=== PATIENT | female | born 1970 | race Caucasian/White ===

== ENCOUNTER 2023-11-27 19:04 | Emergency (ER) | payer OTHER, SELFPAY ==
[2023-11-27 19:45] VITALS: BP 176/77; PULSE 89; RESP 18; TEMP 36.8; O2SAT 98; BMI 29.3
--- NOTE | 2023-11-27 19:46 | ED.GENADULT ---
HPI - General Adult General Chief complaint: Urogenital-Female Stated complaint: UTI Time Seen by Provider: 11/27/23 20:43 Source: patient Mode of arrival: ambulatory Limitations: no limitations History of Present Illness ED Provider: kenia MARIE narrative: Patient is a 53-year-old female presenting to the ED with complaint of urinary urgency, dysuria and suprapubic pain for the past 2 days. States feels similar to prior UTIs. Denies fevers. Reports nausea, denies vomiting. MD complaint: dysuria Onset (ago): day(s) Location: abdomen Radiation: non-radiation Severity: mild Quality: burning Associated symptoms: nausea/vomiting Treatments prior to arrival: none Related Data Previous Rx's ?Medication ?Instructions ?Recorded cefuroxime axetil 250 mg tablet 250 mg PO BID #14 tabs 11/27/23 phenazopyridine 100 mg tablet 100 mg PO TID PRN pain 6 doses #6 11/27/23 tabs Allergies Allergy/AdvReac Type Severity Reaction Status Date / Time No Known Allergies Allergy Verified 11/27/23 19:48 Review of Systems Review of Systems: as per hpi Yes all other systems are reviewed and are negative Constitutional: Constitutional: Reports as per HPI [facility] Social History Social History Advance Directives: No Advance Directives Information Provided: No Do you have a plan to hurt others: No Plan Physical Exam ED Vital Signs: Vital Signs - 24 hr 11/27/23 19:45 Temperature 98.2 F Pulse Rate 89 Respiratory Rate 18 Blood Pressure 176/77 H Pulse Oximetry 98 Oxygen Delivery Method Room Air BMI result Body Mass Index 29.3 Vital signs have been reviewed and appear to be correct. Blood pressure elevated. Heart rate normal. Respiratory rate normal. Temperature normal. Oxygen saturation normal. Const General: cooperative, healthy appearing and no acute distress Orientation/consciousness: oriented to person, oriented to place, oriented to time and patient oriented x3 Limitations: no limitations HENMT Head: Yes normocephalic and Yes atraumatic Ears: external ears normal General nose exam: Normal external nose present Face and sinus: Yes face symmetric Mouth: oropharynx normal and moist mucous membranes Throat: Yes uvula midline Eyes Pupils: Equal, round and reactive pupils present Neck Neck: Yes normal visual inspection and Yes supple Resp Effort & Inspection: normal respiratory effort and able to speak in complete sentences Auscultation: clear to auscultation bilaterally Cardio Rate: regular rate Rhythm: regular rhythm Heart sounds: S1 normal heart sound present and S2 normal heart sound present GI Palpation (GI): Soft to palpation and nontender Auscultation: normoactive bowel sounds General: Yes no CVA tenderness Back/Spine/Pelvis Back: no CVA tenderness Skin General skin exam: elasticity normal and turgor normal Neuro General: oriented to person, oriented to place, oriented to time, patient oriented x3, moves all extremities, no focal motor deficits and CN's II-XI intact bilaterally Cranial nerves: Yes Equal, round and reactive pupils present Cognition (Neuro): normal cognition Extrem General: Yes full ROM, Yes no pedal edema and Yes no calf tenderness Psych Mental Status: mental status grossly normal Affect: normal affect Thought process: Normal thought process present Medical Decision Making Medical Decision Making [facility] Narrative: Patient is a 53-year-old female presenting to the ED with complaint of urinary urgency, dysuria and suprapubic pain for the past 2 days. On exam patient is awake, A+Ox3, BP elevated likely due to discomfort, VS otherwise WNL, afebrile, normal neurological exam without focal deficits, physical exam findings as above. Given reported symptoms and physical exam findings, initial differential includes UTI, cystitis. Unlikely pyelonephritis. Labs notable for no leukocytosis, no NAYANA. Urinalysis notable for 3+ leukocytes, 2+ blood, >50 WBCs. Will treat for UTI with cefuroxime and Pyridium. Instructed patient to follow-up with PCP. Return precautions discussed. Patient verbalized understanding of and agreement with plan. Differential Diagnosis Differential Diagnoses: The differential diagnosis associated with the presentation includes As per MDM. Lab Data [facility] Lab Attestation statement: I reviewed the patient's lab results. As per [facility]. 11/27/23 20:05 11/27/23 20:05 Labs: Lab Results 11/27/23 Range/Units 20:05 WBC 5.2 (4.8-10.8) X10*3/uL RBC 3.99 L (4.20-5.50) X10*6/uL Hgb 13.4 (12.0-16.0) g/dl Hct 39.2 (37.0-47.0) % MCV 98.2 H (80.0-98.0) fL MCH 33.6 H (27.0-33.0) pg MCHC 34.2 (31.0-35.0) g/dl RDW 15.0 (11.0-16.0) % Plt Count 240 (160-400) X10*3/uL MPV 11.2 (9.4-12.3) fL Immature Gran % (Auto) 0.2 (0.0-0.4) % Neut % (Auto) 80.2 H (45-73) % Lymph % (Auto) 12.2 L (20-40) % Hawkins % (Auto) 4.5 (2-11) % Eos % (Auto) 2.5 (0-4) % Baso % (Auto) 0.4 (0-2) % Lymph # (Auto) 0.6 L (1.2-4.9) X10*3/uL Hawkins # (Auto) 0.2 (0.1-1.2) X10*3/uL Eos # (Auto) 0.1 (0.0-0.4) X10*3/uL Baso # (Auto) 0.0 (0.0-0.2) X10*3/uL Abs Immat Gran (auto) 0.01 (0.00-0.03) X10*3/uL Absolute Neuts (auto) 4.1 (2.0-8.3) x10*3/uL Absolute Nucleated RBC 0.000 (0.0-0.012) X10*3/uL Nucleated RBC % (auto) 0.0 (0.0-0.2) /100WBC Sodium 142 (135-145) mmol/L Potassium 4.2 (3.3-5.1) mmol/L Chloride 109 H (96-108) mmol/L Carbon Dioxide 22 (22-29) mmol/L Anion Gap 15 (12-20) BUN 12 (9-16) mg/dL Creatinine 0.65 (0.5-1.4) mg/dL Estim Creat Clear Calc 91.2 Estimated GFR > 60 Random Glucose 182 H (60-115) mg/dL Calcium 9.4 (8.4-10.2) mg/dL Total Bilirubin 0.8 (0.0-1.0) mg/dL AST 38 H (5-31) U/L ALT 42 H (0-31) U/L Alkaline Phosphatase 78 (39-117) U/L Total Protein 6.9 (6.5-8.0) g/dL Albumin 3.9 (3.5-5.0) g/dL Urine Color Yellow Urine Appearance Cloudy Urine pH 6.5 (5.0-9.0) Ur Specific [place] 1.020 (1.005-1.025) Urine Protein Negative (Neg-Trace) mg/dL Urine Glucose (UA) Negative (Negative) mg/dL Urine Ketones Negative (Negative) mg/dL Urine Blood Moderate (2+) H (Negative) Urine Nitrite Negative (Negative) Ur Leukocyte Esterase Large (3+) H (Negative) Urine RBC >20 H (0-2) /HPF Urine WBC >50 H (0-5) /HPF Ur Squamous Epith Cells 0-2 (0-2) /HPF Urine Bacteria Trace (None Seen) Hyaline Casts 0-2 (0-2) /LPF External Record Review External record reviewed: Inpatient record, Office record and Outpatient record Prescription Management I considered prescription management with: Antibiotic Discharge Plan Discharge Clinical Impression: Urinary tract infection Patient Disposition: Home, Self-Care Instructions: Urinary Tract Infection in Women (DC) Additional Instructions: You have been evaluated in the emergency department today for your urinary symptoms. Your evaluation, including urinalysis, suggests that your symptoms are due to urinary tract infection. Please take your prescribed antibiotics for the full course of medication as directed. Please follow-up with your primary care provider within 2 days. Return to the emergency department if you experience fevers 100.4? F or greater, worsening or uncontrolled pain, vomiting, flank pain, or for any other concerning symptoms. Prescriptions: New cefuroxime axetil 250 mg tablet 250 mg PO BID Qty: 14 0RF phenazopyridine 100 mg tablet 100 mg PO TID PRN (Reason: pain) Qty: 6 0RF Print Language: Puerto Rican
[2023-11-27 20:09] LABS: MANUAL DIFF FLAG NO
--- OUTSIDE RECORDS SUMMARY | 2023-11-27 20:12 | XMS_ITS | Continuity of Care Document ---
Author Organization [facility] Mil[facility] lt Address [address] [place] [address]- Care Team Providers Care Mine Utility Operator Name Role Phone Dwight De Oliveira MD Primary Care Physician Encounter [facility] [place] Date(s): 09/02/20 - 10/02/20 [facility] Adult [address] [place] [address]- Allergies, Adverse Reactions, Alerts Substance Reaction Severity Status NKA Active Immunizations Given and Recorded Vaccine Date Status Refusal Reason Influenza Virus Vaccine (oldterm) 1 01/31/17 Given tetanus/diphtheria/pertussis, acel(Tdap) 09/20/16 Given tetanus-diphtheria toxoids (Td) 2 01/20/05 Given Not Given Vaccine Date Status Refusal Reason Influenza Virus Vaccine (oldterm) 06/22/19 Not Giv en Parent Or Guardian Refuses pneumococcal 23-valent vaccine 12/30/19 Not Given Patient Refuses 1Admin Note: declined 2Admin Note: declined Medications amLODIPine 5 mg oral tablet See Instructions, TAKE 1 TABLET BY MOUTH EVERY DAY, # 30 tablet, Refills 5, Tot. Refills 5, Soft Stop, 07/19/20 9:15:00 EDT, Instructions Replace Required Details, Route to Pharmacy Electronically, [facility]/pharmacy #[id number], 157, cm, 05/03/20 6:52:00 EST, He... Start Date: 07/19/20 Status: Ordered atorvastatin 40 mg oral tablet 1 tablet, By Mouth, Daily, # 30 tablet, 5 Refills, Maintenance, 08/02/20 15:10:00 EDT, [facility]/pharmacy#[id number], 157, cm, 05/03/20 6:52:00 EST, Height, 80.1, kg, 01/22/20 14:40:00 EDT, Dry Weight Start Date: 08/02/20 Status: Ordered fenofibrate 54 mg oral tablet 1 tablet, By Mouth, Daily, # 30 tablet, 5 Refills, Maintenance, 08/02/20 15:13:00 EDT, [facility]/pharmacy#[id number], 157, cm, 05/03/20 6:52:00 EST, Height, 80.1, kg, 01/22/20 14:40:00 EDT, Dry Weight Start Date: 08/02/20 Status: Ordered Flagyl 500 mg oral tablet 1 tablet = 500 mg, By Mouth, 3 times a day, # 30 tablet, 0 Refills, Maintenance, 01/26/20 8:16:00 EDT, [facility], 157, cm, 01/26/20 8:00:00 EDT, Height, 80.1, kg, 01/22/20 14:40:00 EDT, Dry Weight Start Date: 01/26/20 Stop Date: 02/05/20 Status: Ordered Humira See Instructions, 40 mg Subcutaneous Infusion Once every 15 days, 0 Refills, Maintenance, 06/20/12 10:48:17 EST Start Date: 06/20/12 Status: Ordered lisinopril 20 mg oral tablet 1, tablet, By Mouth, Daily, # 30 tablet, Refills 5, Tot. Refills 5, Maintenance, 08/02/20 15:13:00 EDT, Route to Pharmacy Electronically, [facility]/pharmacy #[id number], 157, cm, 05/03/20 6:52:00 EST, Height, 80.1, kg, 01/22/20 14:40:00 EDT, Dry Weight Start Date: 08/02/20 Status: Ordered mercaptopurine 50 mg oral tablet 2 tablet = 100 mg, By Mouth, Daily in AM, 0 Refills, Maintenance, 01/06/20 11:07:00 EDT Start Date: 01/06/20 Status: Ordered neomycin 500 mg oral tablet See Instructions, take 2 tabs with 2 tabs Metronidazole at 9:00PM and again at 11:00PM day before procedure., # 4 each, 0 Refills, Maintenance, 01/08/20 14:41:00 EDT, [facility]/pharmacy #[id number], 158, cm, 12/31/19 4:02:00 EDT, Height, 85, kg, 12/29/19 16:02:0... Start Date: 01/08/20 Status: Ordered pregabalin 150 mg oral capsule 1 capsule = 150 mg, By Mouth, 2 times a day, for 30 days, # 60 capsule, 5 Refills, Hard Stop 11/30/20 14:28:00 EDT, 06/03/20 14:28:00 EST, Capsule, [facility]/pharmacy #[id number], generic brand only, 157, cm, 05/03/20 6:52:00 EST, Height, 80.1, kg, 01/22/20 14:40... Start Date: 06/03/20 Stop Date: 11/30/20 Status: Ordered pregabalin 150 mg oral capsule 1 capsule = 150 mg, By Mouth, 2 times a day, # 60 capsule, 5 Refills, Maintenance, 06/03/20 16:22:00 EST, Capsule, [id number], generic brand only, 157, cm, 05/03/20 6:52:00 EST, Height, 80.1,kg, 01/22/20 14:40:00 EDT, Dry Weight Start Date: 06/03/20 Stop Date: 11/30/20 Status: Ordered PriLOSEC OTC 20 mg oral delayed release tablet 1 tablet = 20 mg, By Mouth, 2 times a day, # 120 tablet, 0 Refills, Maintenance, 12/29/19 5:29:00 EDT, EC Tablet Start Date: 12/29/19 Status: Ordered ProAir HFA 90 mcg/inh inhalation aerosol with adapter 1, puffs, Inhalation, Every 6 hours, PRN, # 8.5 Gm, Refills 0, Tot. Refills 0, Maintenance, 09/01/20 17:39:00 EDT, Aerosol, Route to Pharmacy Electronically, [id number], [id number], 157, cm, 09/01/20 17:23:00 EDT, Hei... Start Date: 09/01/20 Stop Date: 09/08/20 Status: Ordered Problem List Condition Effective Dates Status Health Status Inform ant Abnormal LFTs(Confirmed) 06/23/09 Active BMI 33.0-33.9,adult(Confirmed) Active Papanicolaou test, as part o f routine gynecological examination(Confirmed) Active Cancer of anal canal(Confirmed) Active CC (Crohn's colitis)(Confirmed) Active Chest Pain(Confirmed) 06/23/09 Active Glucose intolerance(Confirmed) Active Diverticulosis(Confirmed) 1 Active Dyspareunia(Confirmed) Active Dysphagia(Confirmed) Active ESR raised(Confirmed) Active Family history of BRCA2 gene positive(Confirmed) Active Fibromyalgia syndrome(Confirmed) 10/17/12 Active Hip pain(Confirmed) Active History of colonoscopy(Confirmed) 2, 3 Active Hypercholesterolemia(Confirmed) 06/23/09 Active Hypertension(Confirmed) 04/18/10 Active RLS (restless legs syndrome)(Confirmed) Active Menopausal vaginal dryness(Confirmed) Active 1colo 2014; repeat 2020 46942; repeat 2017 Social History Social History Type Response Smoking Status Never smoker entered on: 09/20/16 Sex
--- OUTSIDE RECORDS SUMMARY | 2023-11-27 20:12 | XMS_ITS | Continuity of Care Document ---
Author Organization [facility] Address [address] [place] [id number]- Care Team Providers Care Side Seam Tender Name Role Phone Yennifer OSORIO, Dwight Dunlap Primary Care Physician Encounter [facility] [place] Date(s): 10/23/19 - 11/22/19 [facility] [address] [address]- [facility] Attending Physician: Calderon Rodrigez Admitting Physician: Calderon Rodrigez Referring Physician: Calderon Rodrigez Allergies, Adverse Reactions, Alerts Substance Reaction Severity Status NKA Active Immunizations Given and Recorded Vaccine Date Status Refusal Reason Influenza Virus Vaccine (oldterm) 1 01/31/17 Given tetanus/diphtheria/pertussis, acel(Tdap) 09/20/16 Given tetanus-diphtheria toxoids (Td) 2 01/20/05 Given Not Given Vaccine Date Status Refusal Reason Influenza Virus Vaccine (oldterm) 06/22/19 Not Giv en Parent Or Guardian Refuses 1Admin Note: declined 2Admin Note: declined Medications amLODIPine 5 mg oral tablet See Instructions, TAKE 1 TABLET BY MOUTH EVERY DAY, # 30 tablet, Refills 5, Tot. Refills 5, Soft Stop, 07/13/19 13:27:00 EDT, Instructions Replace Required Details, Route to Pharmacy Electronically, [facility]/pharmacy #[id number], [id number], 06/22/19 9:24:00 EST, H... Start Date: 07/13/19 Status: Ordered atorvastatin 40 mg oral tablet 1 tablet, By Mouth, Daily, # 30 tablet, 5 Refills, Maintenance, 07/23/19 14:20:00 EDT, [facility]ORE [id number], 158, mikayla, 06/22/19 9:24:00 EST, Height, 81.6, kg, 09/24/17 8:57:00 EDT, Dry Weight Start Date: 07/23/19 Status: Ordered atropine-diphenoxylate 0.025 mg-2.5 mg oral tablet 2, tablet, By Mouth, 4 times a day, Refills 0, Maintenance, 05/01/18 8:50:40 EST Start Date: 05/01/18 Status: Ordered azathioprine 50 mg oral tablet 2 tablet = 100 mg, By Mouth, 2 times a day, 10/23/06 11:55:47 Start Date: 10/23/06 Status: Ordered Claritin 10 mg oral tablet 10 mg, 1, tablet, By Mouth, Daily, # 30 tablet, Refills 1, Tot. Refills 1, Maintenance, 11/04/19 11:42:00 EDT, Route to Pharmacy Electronically, [facility]/pharmacy #[id number], 158, cm, 11/04/19 11:05:00 EDT, Height Start Date: 11/04/19 Status: Ordered fenofibrate 54 mg oral tablet 1 tablet, By Mouth, Daily, # 30 tablet, 5 Refills, Maintenance, 07/23/19 14:20:00 EDT, [facility] [id number], 158, cm, 06/22/19 9:24:00 EST, Height, 81.6, kg, 09/24/17 8:57:00 EDT, Dry Weight Start Date: 07/23/19 Status: Ordered fluticasone 27.5 mcg/inh nasal spray 1 sprays, Nares, Both, Daily, PRN for allergy symptoms, # 10 Gm, 1 Refills, Maintenance, 11/04/19 11:41:00 EDT, [place], [facility]/pharmacy #[id number], 1 sprays Nares, Both Daily,PRN:for allergy symptoms, 158, cm, 11/04/19 11:05:00 EDT, Height Start Date: 11/04/19 Status: Ordered Humira See Instructions, 40 mg Subcutaneous Infusion Once every 15 days, 0 Refills, Maintenance, 06/20/12 10:48:17 Start Date: 06/20/12 Status: Ordered lisinopril 20 mg oral tablet 1, tablet, By Mouth, Daily, # 30 tablet, Refills 5, Tot. Refills 0, Maintenance, 07/23/19 14:20:00 EDT, Route to Pharmacy Electronically, [id number], 158, cm, 06/22/19 9:24:00 EST, Height, 81.6,kg, 09/24/17 8:57:00 EDT, Dry Weight Start Date: 07/23/19 Status: Ordered meclizine 25 mg oral tablet 1 tablet = 25 mg, By Mouth, 3 times a day, PRN for dizziness, # 30 tablet, 0 Refills, Maintenance, 11/10/19 10:36:00 EDT, Tablet, [facility]/pharmacy #[id number], 158, cm, 11/10/19 9:31:00 EDT, Height Start Date: 11/10/19 Status: Ordered pregabalin 150 mg oral capsule 1 capsule = 150 mg, By Mouth, 2 times a day, # 180 capsule, 3 Refills, Maintenance, 10/16/19 16:18:00 EDT, Capsule, [facility]/pharmacy #[id number], generic brand only, 158, cm, 06/22/19 9:24:00 EST, Height, Dry Weight Start Date: 10/16/19 Status: Ordered Problem List Condition Effective Dates [...] vaginal dryness(Confirmed) Active 1colo 2014; repeat 2020 86732; repeat 2017 Social History Social History Type Response Smoking Status Never smoker entered on: 09/20/16 Sex
--- OUTSIDE RECORDS SUMMARY | 2023-11-27 20:12 | XMS_ITS | Continuity of Care Document ---
Author Organization [facility] Address [address] [place] [address]- Care Team Providers Care Gas Operations Superintendent Name Role Phone Dwight De Oliveira MD Primary Care Physician [phone] Encounter [facility] [place] Date(s): 01/29/23 - 02/28/23 [facility] Adult [address] [place] [address]- Allergies, Adverse Reactions, Alerts No Known Allergies Immunizations Given and Recorded Vaccine Date Status Refusal Reason SARS-CoV-2 (COVID-19) Ad26 vaccine 1 10/27/20 Give n Influenza Virus Vaccine (oldterm) 2 01/31/17 Given tetanus/diphtheria/pertussis, acel(Tdap) 09/20/16 Given tetanus-diphtheria toxoids (Td) 3 01/20/05 Given 1Result Comment: [id number] 2Admin Note: declined 3Admin Note: declined Medications atorvastatin 40 mg oral tablet 1 tablet, By Mouth, Daily, # 90 tablet, 1 Refills, Maintenance, 10/24/22 10:14:00 EDT, [facility][id number], 157, cm, 10/17/22 7:48:00 EDT, Height Start Date: 10/24/22 Status: Ordered Clobetasol (Eqv-Temovate) 0.05% topical cream See Instructions, APPLY TO AFFECTED AREA TWICE A DAY, # 60 Gm, 0 Refills, Maintenance, 06/22/22 11:25:00 EST, [facility], 30, APPLY TO AFFECTED AREA TWICE A DAY, 157, cm, 02/15/22 10:32:00 EDT, Height Start Date: 06/22/22 Status: Ordered fenofibrate 54 mg oral tablet 1 tablet, By Mouth, Daily, # 90 tablet, 1 Refills, Maintenance, 10/24/22 10:14:00 EDT, [facility] #[id number], 157, cm, 10/17/22 7:48:00 EDT, Height Start Date: 10/24/22 Status: Ordered lisinopril 20 mg oral tablet 1, tablet, By Mouth, Daily, # 90 tablet, Refills 1, Tot. Refills 1, Maintenance, 02/13/23 8:15:00 EDT, Route to Pharmacy Electronically, [facility] #[id number], 157, cm, 10/17/22 7:48:00 EDT, Height Start Date: 02/13/23 Status: Ordered mercaptopurine 50 mg oral tablet 2 tablet = 100 mg, By Mouth, Daily in AM, 0 Refills, Maintenance, 01/06/20 11:07:00 EDT Start Date: 01/06/20 Status: Ordered pregabalin 150 mg oral capsule 1 capsule = 150 mg, By Mouth, 2 times a day, # 60 capsule, 5 Refills, Maintenance, 12/31/22 10:09:00 EDT, Capsule, [facility] #[id number], generic brand only, 157, cm, 10/17/22 7:48:00 EDT, Height Start Date: 12/31/22 Stop Date: 06/29/23 Status: Ordered PriLOSEC OTC 20 mg oral delayed release tablet 1 tablet = 20 mg, By Mouth, 2 times a day, # 120 tablet, 0 Refills, Maintenance, 12/29/19 5:29:00 EDT, EC Tablet Start Date: 12/29/19 Status: Ordered Toprol XL 50 mg oral tablet, extended release 50 mg, 1, tablet, By Mouth, Daily, # 90 tablet, Refills 3, Tot. Refills 3, Maintenance, 12/06/21 9:21:00 EDT, Route to Pharmacy Electronically, [facility]/pharmacy #[id number], Partial fill upon patient request if the prescription is for a schedule II opioid drug.... Start Date: 12/06/21 Status: Ordered Problem List Condition Confirmation Course Effective Dates Status Health Status Informant Abnormal LFTs Confirmed 06/23/09 Active BMI 33.0-33.9,adult Confirmed Active Papanicolaou test, as part of routine gynecological examination Confirmed Active CC (Crohn's colitis) Confirmed Active Chest Pain Confirmed 06/23/09 Active Glucose intolerance Confirmed Active Diverticulosis 1 Confirmed Active Dyspareunia Confirmed Active Dysphagia Confirmed Active Eczematous dermatitis Confirmed Active ESR raised Confirmed Active Family history of BRCA2 gene positive Confirmed Active Fibromyalgia syndrome Confirmed 10/17/12 Active Hand eczema Confirmed Active Hip pain Confirmed Active History of colonoscopy 2, 3 Confirmed Active History of anal cancer Confirmed Active Hypercholesterolemia Confirmed 06/23/09 Active Hypertension Confirmed 04/18/10 Active Macrocytic anemia Confirmed Active Obese class I Confirmed Active Palpitations Confirmed Active RLS (restless legs syndrome) Confirmed Active Menopausal vaginal dryness Confirmed Active 1colo 2014; repeat 202015; repeat 2017 Social History Social History Type Response Smoking Status Never smoker entered on: 09/20/16 Sex Patient Care team information Care Team Personnel Name: Anderson Best RN Position: [facility] RN Member Role: Primary Care Nurse Name: Dwight De Oliveira MD Position: [facility] Physician - Primary Care Member Role: PCP Address: Address: [address] [place] [phone]- Name: Anette Boyce RN Position: [facility] AMB Nurse Member Role: Primary Care Nurse Name: Afia Hughes RN Position: [facility] RN Member Role: Primary Care Nurse Name: Tomer Merino RN Position: [facility] RN Member Role: Primary Care Nurse Care Team Related Persons Name: ROSE CRENSHAW Address: [address] [address]
--- OUTSIDE RECORDS SUMMARY | 2023-11-27 20:12 | XMS_ITS | Continuity of Care Document ---
Author Organization [facility] Mil[facility] Address [address] [place] [address]- Care Team Providers Care Gravel Weigher Name Role Phone Dwight De Oliveira MD Primary Care Physician [phone] Encounter [facility] [place] Date(s): 08/29/20 - 09/28/20 [facility] Adult [address] [place] [address]- Allergies, Adverse Reactions, Alerts Substance Reaction Severity [...] Replace Required Details, Route to Pharmacy Electronically, [facility]/pharmacy #[id number], 157, cm, 05/03/20 6:52:00 EST, He... Start Date: 07/19/20 Status: Ordered atorvastatin 40 mg oral tablet 1 tablet, By Mouth, Daily, # 30 tablet, 5 Refills, Maintenance, 08/02/20 15:10:00 EDT, [facility]/pharmacy#[id number], 157, cm, 05/03/20 6:52:00 EST, Height, 80.1, kg, 01/22/20 14:40:00 EDT, Dry Weight Start Date: 08/02/20 Status: Ordered fenofibrate 54 mg oral tablet 1 tablet, By Mouth, Daily, # 30 tablet, 5 Refills, Maintenance, 08/02/20 15:13:00 EDT, [facility]/pharmacy#[id number], 157, cm, 05/03/20 6:52:00 EST, Height, 80.1, kg, 01/22/20 14:40:00 EDT, Dry Weight Start Date: 08/02/20 Status: Ordered Flagyl 500 mg oral tablet 1 tablet = 500 mg, By Mouth, 3 times a day, # 30 tablet, 0 Refills, Maintenance, 01/26/20 8:16:00 EDT, [facility], 157, cm, 01/26/20 8:00:00 [...] 08/02/20 15:13:00 EDT, Route to Pharmacy Electronically, [facility]/pharmacy #[id number], 157, cm, 05/03/20 6:52:00 EST, [...] each, 0 Refills, Maintenance, 01/08/20 14:41:00 EDT, [facility]/pharmacy #[id number], 158, cm, 12/31/19 4:02:00 EDT, Height, 85, kg, 12/29/19 16:02:0... Start Date: 01/08/20 Status: Ordered pregabalin 150 mg oral capsule 1 capsule = 150 mg, By Mouth, 2 times a day, for 30 days, # 60 capsule, 5 Refills, Hard Stop 11/30/20 14:28:00 EDT, 06/03/20 14:28:00 EST, Capsule, [facility]/pharmacy #[id number], generic brand only, 157, cm, [...] 17:39:00 EDT, Aerosol, Route to Pharmacy Electronically, [id number], [id number], 157, cm, 09/01/20 17:23:00 EDT, [...] vaginal dryness(Confirmed) Active 1colo 2014; repeat 2020 95714; repeat 2017 Social History Social History Type Response Smoking Status Never smoker entered on: 09/20/16 Sex
--- OUTSIDE RECORDS SUMMARY | 2023-11-27 20:12 | XMS_ITS | Continuity of Care Document ---
Author Organization [facility] Mil[facility] lt Address [address] [place] [address]- Care Team Providers Care Package Clerk Name Role Phone Dwight De Oliveira MD Primary Care Physician [place] [facility] [place] 10/01/20 [facility] Adult [address] [place] [address]- Allergies, Adverse Reactions, Alerts Substance Reaction Severity [...] Replace Required Details, Route to Pharmacy Electronically, [facility]/pharmacy #[id number], 157, cm, 05/03/20 6:52:00 EST, He... Start Date: 07/19/20 Status: Ordered atorvastatin 40 mg oral tablet 1 tablet, By Mouth, Daily, # 30 tablet, 5 Refills, Maintenance, 08/02/20 15:10:00 EDT, [facility]/pharmacy#[id number], 157, cm, 05/03/20 6:52:00 EST, Height, 80.1, kg, 01/22/20 14:40:00 EDT, Dry Weight Start Date: 08/02/20 Status: Ordered fenofibrate 54 mg oral tablet 1 tablet, By Mouth, Daily, # 30 tablet, 5 Refills, Maintenance, 08/02/20 15:13:00 EDT, [facility]/pharmacy#[id number], 157, cm, 05/03/20 6:52:00 EST, Height, 80.1, kg, 01/22/20 14:40:00 EDT, Dry Weight Start Date: 08/02/20 Status: Ordered Flagyl 500 mg oral tablet 1 tablet = 500 mg, By Mouth, 3 times a day, # 30 tablet, 0 Refills, Maintenance, 01/26/20 8:16:00 EDT, [facility], 157, cm, 01/26/20 8:00:00 [...] 08/02/20 15:13:00 EDT, Route to Pharmacy Electronically, [facility]/pharmacy #[id number], 157, cm, 05/03/20 6:52:00 EST, [...] each, 0 Refills, Maintenance, 01/08/20 14:41:00 EDT, [facility]/pharmacy #[id number], 158, cm, 12/31/19 4:02:00 EDT, Height, 85, kg, 12/29/19 16:02:0... Start Date: 01/08/20 Status: Ordered pregabalin 150 mg oral capsule 1 capsule = 150 mg, By Mouth, 2 times a day, for 30 days, # 60 capsule, 5 Refills, Hard Stop 11/30/20 14:28:00 EDT, 06/03/20 14:28:00 EST, Capsule, [facility]/pharmacy #[id number], generic brand only, 157, cm, [...] 17:39:00 EDT, Aerosol, Route to Pharmacy Electronically, [id number], [id number], 157, cm, 09/01/20 17:23:00 EDT, [...] vaginal dryness(Confirmed) Active 1colo 2014; repeat 2020 77988; repeat 2017 Social History Social History Type Response Smoking Status Never smoker entered on: 09/20/16 Sex
--- OUTSIDE RECORDS SUMMARY | 2023-11-27 20:12 | XMS_ITS | Continuity of Care Document ---
Author Organization [facility] Address [address] [place] [address]- Care Team Providers Care Beer Runner Name Role Phone Dwight De Oliveira MD Primary Care Physician [phone] Encounter [facility] [place] ACCT R [id number] Date(s): 01/14/20 - 02/13/20 [facility] [address] [place] [address]- [facility] Attending Physician: Calderon Rodrigez Admitting Physician: AdmtrCalderon Referring Physician: AdmtrCalderon Allergies, Adverse Reactions, Alerts Substance Reaction Severity [...] Refills 5, Tot. Refills 5, Soft Stop, 01/12/20 8:00:00 EDT, Instructions Replace Required Details, Route to Pharmacy Electronically, [facility]/pharmacy #[id number], 158, cm, 12/31/19 4:02:00 EDT, Erma. Start Date: 01/12/20 Status: Ordered atorvastatin 40 mg oral tablet 1 tablet, By Mouth, Daily, # 30 tablet, 5 Refills, Maintenance, 02/05/20 11:40:00 EDT, [facility]/pharmacy#[id number], 157, cm, 01/26/20 8:00:00 EDT, Height, 80.1, kg, 01/22/20 14:40:00 EDT, Dry Weight Start Date: 02/05/20 Status: Ordered fenofibrate 54 mg oral tablet 1 tablet, By Mouth, Daily, # 30 tablet, 5 Refills, Maintenance, 02/05/20 11:30:00 EDT, [facility]/pharmacy#[id number], 157, cm, 01/26/20 8:00:00 EDT, Height, 80.1, kg, 01/22/20 14:40:00 EDT, Dry Weight Start Date: 02/05/20 Status: Ordered Flagyl 500 mg oral tablet 1 tablet = 500 mg, By Mouth, 3 times a day, # 30 tablet, 0 Refills, Maintenance, 01/26/20 8:16:00 EDT, [facility], 157, cm, 01/26/20 8:00:00 EDT, Height, 80.1, kg, 01/22/20 14:40:00 EDT, Dry Weight Start Date: 01/26/20 Stop Date: 02/05/20 Status: Ordered Humira See Instructions, 40 mg Subcutaneous Infusion Once every 15 days, 0 Refills, Maintenance, 06/20/12 10:48:17 EST Start Date: 06/20/12 Status: Ordered lisinopril 20 mg oral tablet 1, tablet, By Mouth, Daily, # 30 tablet, Refills 5, Tot. Refills 5, Maintenance, 02/05/20 11:30:00 EDT, Route to Pharmacy Electronically, [facility]/pharmacy #[id number], 157, cm, 01/26/20 8:00:00 EDT, Height, 80.1, kg, 01/22/20 14:40:00 EDT, Dry Weight Start Date: 02/05/20 Status: Ordered Lomotil 0.025 mg-2.5 mg oral tablet 2, tablet, By Mouth, 3 times a day before meals and bedtime, PRN, for 30 days, # 240 tablet, Refills 0, Tot. Refills 0, Acute, as needed for loose stool, 02/25/20 8:13:00 EDT, 01/26/20 8:13:00 EDT, Route to Pharmacy Electronically, [facility] Start Date: 01/26/20 Stop Date: 02/25/20 Status: Ordered loperamide 2 mg oral capsule 4 mg, 2, capsule, By Mouth, 3 times a day before meals and bedtime, PRN, for 30 days, # 240 capsule, Refills 0, Tot. Refills 0, Acute 02/25/20 8:13:00 EDT, Loose Stool, 01/26/20 8:13:00 EDT, Route toPharmacy Electronically, [facility],... Start Date: 01/26/20 Stop Date: 02/25/20 Status: Ordered mercaptopurine 50 mg oral tablet 2 tablet = 100 mg, By Mouth, Daily in AM, 0 Refills, Maintenance, 01/06/20 11:07:00 EDT Start Date: 01/06/20 Status: Ordered neomycin 500 mg oral tablet See Instructions, take 2 tabs with 2 tabs Metronidazole at 9:00PM and again at 11:00PM day before procedure., # 4 each, 0 Refills, Maintenance, 01/08/20 14:41:00 EDT, [facility]/pharmacy #[id number], 158, cm, 12/31/19 4:02:00 EDT, Height, 85, kg, 12/29/19 16:02:0... Start Date: 01/08/20 Status: Ordered pregabalin 150 mg oral capsule 1 capsule = 150 mg, By Mouth, 2 times a day, # 180 capsule, 3 Refills, Maintenance, 10/16/19 16:18:00 EDT, Capsule, [id number], generic brand [facility], 158, cm, 06/22/19 9:24:00 EST, Height, Dry Weight Start Date: 10/16/19 Status: Ordered PriLOSEC OTC 20 mg oral delayed release tablet 1 tablet = 20 mg, By Mouth, 2 times a day, # 120 tablet, 0 Refills, Maintenance, 12/29/19 5:29:00 EDT, EC Tablet Start Date: 12/29/19 Status: Ordered Problem List Condition Effective Dates [...] vaginal dryness(Confirmed) Active 1colo 2014; repeat 2020 23192; repeat 2017 Social History Social History Type Response Smoking Status Never smoker entered on: 09/20/16 Sex
--- OUTSIDE RECORDS SUMMARY | 2023-11-27 20:12 | XMS_ITS | Continuity of Care Document ---
Author Organization [facility] Mil[facility] lt Address [address] [place] [address]- Care Team Providers Care Fire Sprinkler Installer Name Role Phone Dwight De Oliveira MD Primary Care Physician Encounter [facility] [place] Date(s): 06/03/20 - 07/03/20 [facility] Adult [address] [place] [address]- Allergies, Adverse Reactions, Alerts Substance Reaction Severity [...] Replace Required Details, Route to Pharmacy Electronically, [facility]/pharmacy #[id number], 158, cm, 12/31/19 4:02:00 EDT, He... Start Date: 01/12/20 Status: Ordered atorvastatin 40 mg oral tablet 1 tablet, By Mouth, Daily, # 30 tablet, 5 Refills, Maintenance, 02/05/20 11:40:00 EDT, [facility]/pharmacy#[id number], 157, cm, 01/26/20 8:00:00 EDT, Height, 80.1, kg, 01/22/20 14:40:00 EDT, Dry Weight Start Date: 02/05/20 Status: Ordered fenofibrate 54 mg oral tablet 1 tablet, By Mouth, Daily, # 30 tablet, 5 Refills, Maintenance, 02/05/20 11:30:00 EDT, [facility]/pharmacy#[id number], 157, cm, 01/26/20 8:00:00 EDT, Height, 80.1, kg, 01/22/20 14:40:00 EDT, Dry Weight Start Date: 02/05/20 Status: Ordered Flagyl 500 mg oral tablet 1 tablet = 500 mg, By Mouth, 3 times a day, # 30 tablet, 0 Refills, Maintenance, 01/26/20 8:16:00 EDT, [facility], 157, cm, 01/26/20 8:00:00 [...] 02/05/20 11:30:00 EDT, Route to Pharmacy Electronically, [facility]/pharmacy #[id number], 157, cm, 01/26/20 8:00:00 EDT, Height, 80.1, kg, 01/22/20 14:40:00 EDT, Dry Weight Start Date: 02/05/20 Status: Ordered mercaptopurine 50 mg oral tablet 2 tablet = 100 mg, By Mouth, Daily in AM, 0 Refills, Maintenance, 01/06/20 11:07:00 EDT Start Date: 01/06/20 Status: Ordered neomycin 500 mg oral tablet See Instructions, take 2 tabs with 2 tabs Metronidazole at 9:00PM and again at 11:00PM day before procedure., # 4 each, 0 Refills, Maintenance, 01/08/20 14:41:00 EDT, [facility]/pharmacy #[id number], 158, cm, 12/31/19 4:02:00 EDT, Height, 85, kg, 12/29/19 16:02:0... Start Date: 01/08/20 Status: Ordered pregabalin 150 mg oral capsule 1 capsule = 150 mg, By Mouth, 2 times a day, for 30 days, # 60 capsule, 5 Refills, Hard Stop 11/30/20 14:28:00 EDT, 06/03/20 14:28:00 EST, Capsule, [id number] generic brand [facility], 157, cm, 05/03/20 [...] Menopausal vaginal dryness(Confirmed) Active 1colo 2014; repeat 202015; repeat 2017 Social History Social History Type Response Smoking Status Never smoker entered on: 09/20/16 Sex
--- OUTSIDE RECORDS SUMMARY | 2023-11-27 20:12 | XMS_ITS | Continuity of Care Document ---
Author Organization [facility] lt Address [address] [place] [address]- Care Team Providers Care Contact Center Assistant Name Role Phone Dwight De Oliveira MD Primary Care Physician Encounter [facility] [place] Date(s): 08/12/23 - 09/11/23 [facility] Adult [address] [place] [address]- Allergies, Adverse Reactions, Alerts No Known Allergies Immunizations Given and Recorded Vaccine Date Status Refusal Reason SARS-CoV-2 (COVID-19) Ad26 vaccine 1 10/27/20 Give n Influenza Virus Vaccine (oldterm) 2 01/31/17 Given tetanus/diphtheria/pertussis, acel(Tdap) 09/20/16 Given tetanus-diphtheria toxoids (Td) 3 01/20/05 Given 1Result Comment: [id number] 2Admin Note: declined 3Admin Note: declined Medications atorvastatin 40 mg oral tablet 1 tablet, By Mouth, Daily, # 90 tablet, 1 Refills, Maintenance, 05/13/23 9:00:00 [id number], 157, cm, 10/17/22 7:48:00 EDT, Height Start Date: 05/13/23 Status: Ordered Clobetasol (Eqv-Temovate) 0.05% topical cream See Instructions, APPLY TO AFFECTED AREA TWICE A DAY, # 60 Gm, 0 Refills, Maintenance, 06/22/22 11:25:00 [id number], 30, APPLY TO AFFECTED AREA TWICE A DAY, 157, cm, 02/15/22 10:32:00 EDT, Height Start Date: 06/22/22 Status: Ordered fenofibrate 54 mg oral tablet 1 tablet, By Mouth, Daily, # 90 tablet, 1 Refills, Maintenance, 05/13/23 9:00:00 EST, [id number], 157, cm, 10/17/22 7:48:00 EDT, Height Start Date: 05/13/23 Status: Ordered lisinopril 20 mg oral tablet 1, tablet, By Mouth, Daily, # 90 tablet, Refills 1, Maintenance, 08/08/23 10:38:00 EDT, [id number] 157, cm, 06/21/23 8:23:00 EST, Height Start Date: 08/08/23 Status: Ordered mercaptopurine 50 mg oral tablet 2 tablet = 100 mg, By Mouth, Daily in AM, 0 Refills, Maintenance, 01/06/20 11:07:00 EDT Start Date: 01/06/20 Status: Ordered pregabalin 150 mg oral capsule 1 capsule = 150 mg, By Mouth, 2 times a day, # 60 capsule, 5 Refills, Maintenance, 07/09/23 15:47:00 EST, Capsule, [facility] #[id number], generic brand only, 157, cm, 06/21/23 8:23:00 EST, Height Start Date: 07/09/23 Stop Date: 01/05/24 Status: Ordered PriLOSEC OTC 20 mg oral [...] 12/06/21 9:21:00 EDT, Route to Pharmacy Electronically, [facility]/pharmacy #[id number], Partial fill upon patient request if the prescription is for a schedule II opioid drug.... Start Date: 12/06/21 Status: Ordered Problem List Condition Confirmation Course Effective Dates Status Health Status Informant Abnormal LFTs Confirmed 06/23/09 Active Acquired trigger finger Confirmed Active BMI 33.0-33.9,adult Confirmed Active Papanicolaou test, as part of routine gynecological examination Confirmed Active CC (Crohn's colitis) Confirmed Active Chest Pain Confirmed 06/23/09 Active Glucose intolerance Confirmed Active Diverticulosis 1 Confirmed Active Dry eyes, bilateral Confirmed Active Dyspareunia Confirmed Active Dysphagia Confirmed [...] Care team information Care Team Personnel Name: Dwight De Oliveira MD Position: [facility] Physician - Primary Care Member Role: PCP Address: Address: [address] [place] [address]- Name: Anette Boyce RN Position: [facility] AMB Nurse Member Role: Primary Care Nurse Name: Afia Hughes RN Position: [facility] RN Member Role: Primary Care Nurse Name: Tomer Merino RN Position: [facility] RN Member Role: Primary Care Nurse Care Team Related Persons Name: ROSE CRENSHAW Address: [address] [address]
--- OUTSIDE RECORDS SUMMARY | 2023-11-27 20:12 | XMS_ITS | Continuity of Care Document ---
Author Organization [facility] lt Address [address] [place] [address]- Care Team Providers Care Hand Turner Name Role Phone Dwight De Oliveira MD Primary Care Physician [phone] Encounter [facility] [place] Date(s): 06/21/23 - 06/28/23 [facility] Adult [address] [place] [address]- Encounter Diagnosis CC (Crohn's colitis)(Discharge Diagnosis) - 06/21/23 Attending Physician: Dwight De Oliveira MD Allergies, Adverse Reactions, Alerts No Known Allergies Immunizations Given and Recorded Vaccine Date Status Refusal Reason SARS-CoV-2 (COVID-19) Ad26 vaccine 1 10/27/20 Give n Influenza Virus Vaccine (oldterm) 2 01/31/17 Given tetanus/diphtheria/pertussis, acel(Tdap) 09/20/16 Given tetanus-diphtheria toxoids (Td) 3 01/20/05 Given 1Result Comment: [id number] 2Admin Note: declined 3Admin Note: declined Medications atorvastatin 40 mg oral tablet 1 tablet, By Mouth, Daily, # 90 tablet, 1 Refills, Maintenance, 05/13/23 9:00:00 [facility] #[id number], 157, cm, 10/17/22 7:48:00 EDT, Height Start Date: 05/13/23 Status: Ordered Clobetasol (Eqv-Temovate) 0.05% topical cream See Instructions, APPLY TO AFFECTED AREA TWICE A DAY, # 60 Gm, 0 Refills, Maintenance, 06/22/22 11:25:00 [facility], 30, APPLY TO AFFECTED AREA TWICE A DAY, 157, cm, 02/15/22 10:32:00 EDT, Height Start Date: 06/22/22 Status: Ordered fenofibrate 54 mg oral tablet 1 tablet, By Mouth, Daily, # 90 tablet, 1 Refills, Maintenance, 05/13/23 9:00:00 EST, [facility] #[id number], 157, cm, 10/17/22 7:48:00 EDT, Height Start Date: 05/13/23 Status: Ordered lisinopril 20 mg oral tablet 1, tablet, By Mouth, Daily, # 90 tablet, Refills 1, Tot. Refills 1, Maintenance, 02/13/23 8:15:00 EDT, Route to Pharmacy Electronically, [facility] #[id number], 157, cm, 10/17/22 7:48:00 EDT, Height Start Date: 02/13/23 Status: Ordered mercaptopurine 50 mg oral tablet 2 tablet = 100 mg, By Mouth, Daily in AM, 0 Refills, Maintenance, 01/06/20 11:07:00 EDT Start Date: 01/06/20 Status: Ordered pregabalin 150 mg oral capsule 1 capsule = 150 mg, By Mouth, 2 times a day, # 60 capsule, 5 Refills, Maintenance, 12/31/22 10:09:00 EDT, Capsule, [facility] #[id number], generic brand only, 157, cm, 10/17/22 7:48:00 [...] 12/06/21 9:21:00 EDT, Route to Pharmacy Electronically, [facility]/pharmacy #[id number], Partial fill upon patient request if the [...] vaginal dryness Confirmed Active 1colo 2014; repeat 2020; repeat 2017 Diagnosis Diagnosis Type Effective Dates Health Status Cl inical Service Informant CC (Crohn's colitis) Discharge Diagnosis 06/21/23 Vital Signs Most recent to oldest [Reference Range]: 1 Height 157 cm (06/21/23 8:23 AM) Weight 75.5 kg (06/21/23 8:23 AM) Oxygen Saturation [94-100 %] 98 % (06/21/23 8:23 AM) Pulse Rate [55-90 bpm] 89 bpm (06/21/23 8:23 AM) Body Mass Index [18.5-24.99 kg/m2] 30.63 kg/m2 *>HHI* (06/21/23 8:23 AM) Blood Pressure [90-138/55-84 mm Hg] 110/ 66mm Hg (06/21/23 8:23 AM) Mode of Delivery (Oxygen) Room air (06/21/23 8:23 AM) Blood pressure sites Arm, left (06/21/23 8:23 AM) Weight Obtained Via Standing scale (06/21/23 8:23 AM) Social History Social History Type Response Smoking Status Never smoker entered on: 09/20/16 Sex Note * Maria Teresa Turcios: PERFORM, SIGN, VERIFY Event Display: Patient Education/Instruction Authored Date: [id number] [facility] *BMP Angela Reyes Clinical Summary Name ROMERO CRENSHAW Age 52 Years 1970 PCP ResedaDwight cortez MD PCP Visit Date 06/21/2023 08:20:00 Additional Instructions: Scheduled Appointments?? Future Appointments ?No Future Appointments Scheduled Follow-Up Instructions ?? With: Address: When: Dwight De Oliveira MD In 6 months Diagnosis Crohn's disease of large intestine without complications; Trigger finger, unspecified finger; Dry eye syndrome of bilateral lacrimal glands Medications: Please continue your medications until treatment is completed or stopped by your provider. Discuss any questions related to medications with your provider. Medications to Continue with No Changes These medications were not printed or sent to your pharmacy Atorvastatin (atorvastatin 40 mg oral tablet) 1 tab(s) Oral Daily. Refills: 1. Next Dose: Clobetasol Topical (Clobetasol (Eqv-Temovate) 0.05% topical cream) APPLY TO AFFECTED AREA TWICE A DAY. Refills: 0. Next Dose: Fenofibrate (fenofibrate 54 mg oral tablet) 1 tab(s) Oral Daily. Refills: 1. Next Dose: Lisinopril (lisinopril 20 mg oral tablet) 1 tab(s) Oral Daily. Refills: 1. Next Dose: Mercaptopurine (mercaptopurine 50 mg oral tablet) 2 tab(s) Oral Daily in the morning. Next Dose: Metoprolol (Toprol XL 50 mg oral tablet, extended release) 1 tab(s) Oral Daily. Refills: 3. Next Dose: Omeprazole (PriLOSEC OTC 20 mg oral delayed release tablet) 1 tab(s) Oral twice a day. Next Dose: Pregabalin (pregabalin 150 mg oral capsule) 1 capsule Oral twice a day for 30 Days. Refills: 5. Next Dose: Allergy Info:?? NKA Medications Given This Visit Future Orders ?MM Digital Mammo Screening? Order Date:06/21/23?- Complete on or after?06/21/23 ?Comprehensive Metabolic Panel? Order Date:06/21/23?- Complete on or after?06/21/23 ?CBC? Order Date:06/21/23?- Complete on or after?06/21/23 ?Thyroid Panel? Order Date:06/21/23?- Complete on or after?06/21/23 ?Lipid Panel? Order Date:06/21/23?- Complete on or after?06/21/23 ?Sjogren's Ab? Order Date:06/21/23?- Complete on or after?06/21/23 Vital Signs Height 157 cm Weight 75.5 kg BMI 30.63 kg/m2 Blood Pressure 110 mm Hg/66 mm Hg Temperature Pulse Rate 89 bpm Respiratory Rate 02 Sat Mode of Delivery 98 %/Room air You can now view a summary of your hospital visit from the comfort of your home through a free online portal called [facility]. [facility] is a website that allows you to securely view your medical information including discharge summary, medications and follow-up visits. ??You can alsosend a secure electronic message to your doctor???s office to request appointments, renew medications or just ask a question. You can enroll at [email or web address] or register during your next office visit. Disclaimer:?? The information provided is of a general nature and is intended to be used in conjunction with the recommendations and advice of your health care practitioner. ??Every effort has been made to ensure that the information provided is accurate and complete at the time it is provided to you however, as your needs change, or, as new ??information becomes available, different or additional instructions may be required. If you have questions, please consult with your primary care provider or pharmacist, as appropriate. ??This information is not intended to serve as substitution for assessment and evaluation by a qualified health care provider. If you do not have a primary care provider, you may find a [facility] provider by calling [facility] at [phone]. [facility], in keeping with [facility] guidance, no longer requires face masks for staff, patientsor visitors in most situations. Similar to time spent indoors at other locations, there is the chance that you were exposed to respiratory viruses during your time with us (such as flu or COVID-19).? If you develop symptoms concerning for a viral respiratory infection, please seek testing (and treatment if indicated) from your medical provider or home test kit. For information about the plan of care including goals and instructions for your diagnosis, please see the patient education orders section of this document. Patient Education Materials?? The content of this educational material or handout may have been modified, supplemented, or adapted from its original content and format to support your individualized medical care. Patient Care team information Care Team Personnel Name: Dwight De Oliveira MD Position: [facility] Physician - Primary Care Member Role: PCP Address: Address: [address] [place] [address]- Name: Anette Boyce RN Position: [facility] Nurse Member Role: Primary Care Nurse Name: Afia Hughes RN Position: [facility] RN Member Role: Primary Care Nurse Name: Tomer Merino RN Position: [facility] RN Member Role: Primary Care Nurse Care Team Related Persons Name: APRIL CRENSHAWIC Address: [address] [address]
--- OUTSIDE RECORDS SUMMARY | 2023-11-27 20:12 | XMS_ITS | Continuity of Care Document ---
Author Organization [facility] [place] [address] [place] [address]- Care Team Providers Care Rn Maternity Name Role Phone Dwight De Oliveira MD Primary Care Physician Encounter 06/28/21 - 07/05/21 [facility] [place] [address], [address] [place], [place] [address] Attending Physician: Dwight De Oliveira MD Admitting Physician: Dwight De Oliveira MD Referring Physician: Dwight De Oliveira MD Allergies, Adverse Reactions, Alerts No Known Allergies Immunizations Given and Recorded Vaccine Date Status Refusal Reason SARS-CoV-2 (COVID-19) Ad26 vaccine 1 10/27/20 Give n Influenza Virus Vaccine (oldterm) 2 01/31/17 Given tetanus/diphtheria/pertussis, acel(Tdap) 09/20/16 Given tetanus-diphtheria toxoids (Td) 3 01/20/05 Given Not Given Vaccine Date Status Refusal Reason Influenza Virus Vaccine (oldterm) 06/22/19 Not Giv en Parent Or Guardian Refuses pneumococcal 23-valent vaccine 12/30/19 Not Given Patient Refuses 1Result Comment: [id number] 2Admin Note: declined 3Admin Note: declined Medications amLODIPine 5 mg oral tablet 1 tablet, By Mouth, Daily, # 30 tablet, 5 Refills, [facility] STORE 90575, 157, cm, 06/07/21 8:43:00 EST, Height, 80.1, kg, 01/22/20 14:40:00 EDT, Dry Weight Start Date: 06/18/21 Status: Ordered atorvastatin 40 mg oral tablet See Instructions, TAKE 1 TABLET BY MOUTH EVERY DAY, # 30 tablet, 5 Refills, Maintenance, 02/14/21 8:04:00 EDT, [facility]/pharmacy #[id number], 157, cm, 10/27/20 10:35:00 EDT, Height, 80.1, kg, 01/22/20 14:40:00 EDT, Dry Weight Start Date: 02/14/21 Status: Ordered fenofibrate 54 mg oral tablet See Instructions, TAKE 1 TABLET BY MOUTH EVERY DAY, # 30 tablet, 5 Refills, Maintenance, 02/14/21 8:04:00 EDT, [facility]/pharmacy #2339, 157, cm, 10/27/20 10:35:00 EDT, Height, 80.1, kg, 01/22/20 14:40:00 EDT, Dry Weight Start Date: 02/14/21 Status: Ordered Humira See Instructions, 40 mg Subcutaneous Infusion Once every 15 days, 0 Refills, Maintenance, 06/20/12 10:48:17 EST Start Date: 06/20/12 Status: Ordered lisinopril 20 mg oral tablet See Instructions, TAKE 1 TABLET BY MOUTH EVERY DAY, # 30 tablet, Refills 11, Tot. Refills 11, Maintenance, 02/07/21 9:40:00 EDT, Instructions Replace Required Details, Route to Pharmacy Electronically, [facility]/pharmacy #2339, 157, cm, 10/27/20 10:35:00 ED... Start Date: 02/07/21 Status: Ordered mercaptopurine 50 mg oral tablet 2 tablet = 100 mg, By Mouth, Daily in AM, 0 Refills, Maintenance, 01/06/20 11:07:00 EDT Start Date: 01/06/20 Status: Ordered pregabalin 150 mg oral capsule 1 capsule = 150 mg, By Mouth, 2 times a day, # 60 capsule, 5 Refills, Maintenance, 05/31/21 11:19:00 EST, Capsule, [facility]/pharmacy #0693, generic brand only, 157, cm, 05/30/21 10:20:00 EST, Height, 80.1, kg, 01/22/20 14:40:00 EDT, Dry Weight Start Date: 05/31/21 Stop Date: 11/27/21 Status: Ordered PriLOSEC OTC 20 mg oral [...] Active Hypercholesterolemia(Confirmed) 06/23/09 Active Hypertension(Confirmed) 04/18/10 Active Obese class I(Confirmed) Active RLS (restless legs syndrome)(Confirmed) Active Menopausal vaginal dryness(Confirmed) Active 1colo 2014; repeat 2020 46866; repeat 2017 Social History Social History Type Response Smoking Status Never smoker entered on: 09/20/16 Sex
--- OUTSIDE RECORDS SUMMARY | 2023-11-27 20:12 | XMS_ITS | Continuity of Care Document ---
Author Organization [facility] Milo lt Address [address] [place] [address]- Care Team Providers Care Infant Teacher Name Role Phone Yennifer OSORIO, Dwight Dunlap Primary Care Physician [phone] [place] [facility] [id number] Date(s): 04/26/20 - 05/03/20 [facility] Adult [address] [place] [address]- Attending Physician: Lisa Aguirre NP Allergies, Adverse Reactions, Alerts Substance Reaction Severity [...] Replace Required Details, Route to Pharmacy Electronically, [facility]/pharmacy #[id number], 158, cm, 12/31/19 4:02:00 EDT, He... Start Date: 01/12/20 Status: Ordered atorvastatin 40 mg oral tablet 1 tablet, By Mouth, Daily, # 30 tablet, 5 Refills, Maintenance, 02/05/20 11:40:00 EDT, [facility]/pharmacy#2339, 157, cm, 01/26/20 8:00:00 EDT, Height, 80.1, kg, 01/22/20 14:40:00 EDT, Dry Weight Start Date: 02/05/20 Status: Ordered fenofibrate 54 mg oral tablet 1 tablet, By Mouth, Daily, # 30 tablet, 5 Refills, Maintenance, 02/05/20 11:30:00 EDT, [facility]/pharmacy#2339, 157, cm, 01/26/20 8:00:00 EDT, [...] 02/05/20 11:30:00 EDT, Route to Pharmacy Electronically, [facility]/pharmacy #[id number], 157, cm, 01/26/20 8:00:00 [...] each, 0 Refills, Maintenance, 01/08/20 14:41:00 EDT, [facility]/pharmacy #2339, 158, cm, 12/31/19 4:02:00 EDT, Height, 85, kg, 12/29/19 16:02:0... Start Date: 01/08/20 Status: Ordered pregabalin 150 mg oral capsule 1 capsule = 150 mg, By Mouth, 2 times a day, # 180 capsule, 0 Refills, Maintenance, 04/26/20 9:22:00 EST, Capsule, [facility], generic brand only, 157, cm, 02/17/20 14:14:00 EDT, Height, 80.1, kg, 01/22/20 14:40:00 EDT, Dry Weight Start Date: 04/26/20 Status: Ordered PriLOSEC OTC 20 mg oral [...] syndrome)(Confirmed) Active Menopausal vaginal dryness(Confirmed) Active 1colo 201418; repeat 2020 30789; repeat 2017 Vital Signs Most recent to oldest [Reference Range]: 1 Height 157 cm (04/26/20 10:06 AM) Social History Social History Type Response Smoking Status Never smoker entered on: 09/20/16 Sex
--- OUTSIDE RECORDS SUMMARY | 2023-11-27 20:12 | XMS_ITS | Continuity of Care Document ---
Author Organization [facility] Address [address] [place] [address]- Care Team Providers Care Lamp Assembler Name Role Phone Yennifer OSORIO, Dwight Dunlap Primary Care Physician Encounter [facility] [place] Date(s): 01/22/20 - 01/26/[address] [address] [facility] Discharge Disposition: A-D/C Home Attending Physician: Deena Greenfield MD Admitting Physician: Deena Greenfield MD Referring Physician: Not on Staff, Referring MD Allergies, Adverse Reactions, Alerts Substance Reaction Severity [...] Details, Route to Pharmacy Electronically, [facility]/pharmacy #[id number], 158, cm, 12/31/19 4:02:00 EDT, [facility] Start Date: 01/12/20 Status: Ordered atorvastatin 40 mg oral tablet 1 tablet, By Mouth, Daily, # 30 tablet, 5 Refills, Maintenance, 01/13/20 15:56:00 EDT, [facility]/pharmacy#1730, 157.48, cm, 01/13/20 14:36:00 EDT, Height, 77.27, kg, 01/12/20 16:16:00 EDT, Dry Weight Start Date: 01/13/20 Status: Ordered fenofibrate 54 mg oral tablet 1 tablet, By Mouth, Daily, # 30 tablet, 5 Refills, Maintenance, 07/23/19 14:20:00 EDT, [facility] 94631, 158, cm, 06/22/19 9:24:00 EST, Height, 81.6, kg, 09/24/17 8:57:00 EDT, Dry Weight Start Date: 07/23/19 Status: Ordered Flagyl 500 mg oral tablet 1 tablet = 500 mg, By Mouth, 3 times a day, # 30 tablet, 0 Refills, Maintenance, 01/26/20 8:16:00 EDT, [facility], 157, cm, 01/26/20 8:00:00 EDT, [...] 07/23/19 14:20:00 EDT, Route to Pharmacy Electronically, [facility] 19650, 158, cm, 06/22/19 9:24:00 EST, Height, 81.6,kg, 09/24/17 8:57:00 EDT, Dry Weight Start Date: 07/23/19 Status: Ordered Lomotil 0.025 mg-2.5 mg oral tablet 2, tablet, By Mouth, 3 times a day before meals and bedtime, PRN, for 30 days, # 240 tablet, Refills 0, Tot. Refills 0, Acute, as needed for loose stool, 02/25/20 8:13:00 EDT, 01/26/20 8:13:00 EDT, Route to Pharmacy Electronically, [facility] Start Date: 01/26/20 Stop Date: 02/25/20 Status: Ordered loperamide 2 mg oral capsule 4 mg, 2, capsule, By Mouth, 3 times a day before meals and bedtime, PRN, for 30 days, # 240 capsule, Refills 0, Tot. Refills 0, Acute 02/25/20 8:13:00 EDT, Loose Stool, 01/26/20 8:13:00 EDT, Route toPharmacy Electronically, [facility],... Start Date: 01/26/20 Stop Date: [...] Refills, Maintenance, 01/08/20 14:41:00 EDT, [facility]/pharmacy #2339, 158, cm, 12/31/19 4:02:00 EDT, Height, 85, kg, 12/29/19 16:02:0... Start Date: 01/08/20 Status: Ordered oxyCODONE 5 mg oral tablet 5 mg, 1, tablet, By Mouth, Every 6 hours, PRN, for 3 days, # 5 tablet, Refills 0, Tot. Refills 0, Acute 01/29/20 10:19:00 EDT, Pain , Severe, 01/26/20 10:19:00 EDT, Route to Pharmacy Electronically, [facility], Partial fill upon patient... Start Date: 01/26/20 Stop Date: 01/29/20 Status: Ordered pregabalin 150 mg oral capsule [...] vaginal dryness(Confirmed) Active 1colo 201418; repeat 2020 18501; repeat 2017 Vital Signs Most recent to oldest [Reference Range]: 1 2 3 Height 157 cm (01/26/20 8:00 AM) 157 cm (01/26/20 3:25 AM) 157 cm (01/25/20 11:30 PM) Weight 80.1 kg (01/22/20 2:34 PM) Oxygen Saturation [94-100 %] 100 % (01/26/20 8:00 AM) 96 % (01/26/20 3:25 AM) 99 % (01/25/20 11:30 PM) Pulse Rate [55-90 bpm] 74 bpm (01/26/20 8:00 AM) 73 bpm (01/26/20 3:25 AM) 75 bpm (01/25/20 11:30 PM) Body Mass Index [18.5-24.99] 32.5 *>HHI* (01/22/20 2:34 PM) Blood Pressure [90-138/55-84 mm Hg] 124/74mm Hg (01/26/20 10:35 AM) 124/74mm Hg (01/26/20 10:35 AM) 124/74mm Hg (01/26/20 8:00 AM) Respiratory Rate [16-30 br/min] 18 br/min (01/26/20 10:35 AM) 18 br/min (01/26/20 8:00 AM) 18 br/min (01/26/20 6:31 AM) Temperature [96.8-100.4 DegF] 97.6 DegF (01/26/20 8:00 AM) 97.6 DegF (01/26/20 3:25 AM) 97.9 DegF (01/25/20 11:30 PM) Mode of Delivery (Oxygen) Room air (01/26/20 8:00 AM) Room air (01/26/20 3:25 AM) Room air (01/25/20 11:30 PM) Blood pressure sites Arm, right (01/26/20 8:00 AM) Arm, left (01/26/20 3:25 AM) Arm, left (01/25/20 11:30 PM) Temperature Route Oral (01/26/20 8:00 AM) Oral (01/26/20 3:25 AM) Oral (01/25/20 11:30 PM) Dry Weight 80.1 kg (01/22/20 2:34 PM) Social History Social History Type Response Smoking Status Never smoker entered on: 09/20/16 Sex
--- OUTSIDE RECORDS SUMMARY | 2023-11-27 20:12 | XMS_ITS | Continuity of Care Document ---
Author Organization [facility] Address [address] [place] [address]- Care Team Providers Care Acute Care Surgeon Name Role Phone Dwight De Oliveira MD Primary Care Physician [phone] Encounter [facility] Date(s): 02/14/22 - 03/16/22 [facility] Adult [address] [place] [address]- Allergies, Adverse Reactions, Alerts No Known Allergies [...] 12/30/19 Not Given Patient Refuses 1Result Comment: [id number] 2Admin Note: declined 3Admin Note: declined Medications atorvastatin 40 mg oral tablet 1 tablet, By Mouth, Daily, # 30 tablet, 5 Refills, Maintenance, 02/15/22 12:10:00 EDT, [facility]/pharmacy#2339, 157, cm, 02/15/22 10:32:00 EDT, Height Start Date: 02/15/22 Status: Ordered clobetasol 0.05% topical cream See Instructions, APPLY TO AFFECTED AREA TWICE A DAY, # 60 Gm, 0 Refills, Maintenance, 02/05/22 6:39:00 EDT, [facility], 60, APPLY TO AFFECTED AREA TWICE A DAY, 157, cm, 12/06/21 8:57:00 EDT, Height Start Date: 02/05/22 Status: Ordered fenofibrate 54 mg oral tablet 1 tablet, By Mouth, Daily, # 30 tablet, 5 Refills, Maintenance, 02/02/22 6:48:00 EDT, [facility] STORE 29731, 157, cm, 12/06/21 8:57:00 EDT, Height Start Date: 02/02/22 Status: Ordered Humira See Instructions, 40 mg Subcutaneous Infusion Once every 15 days, 0 Refills, Maintenance, 06/20/12 10:48:17 EST Start Date: 06/20/12 Status: Ordered lisinopril 20 mg oral tablet 1, tablet, By Mouth, Daily, # 30 tablet, Refills 5, Maintenance, 02/02/22 6:49:00 EDT, Route to Pharmacy Electronically, [facility] STORE 26131, 157, cm, 12/06/21 8:57:00 EDT, Height Start Date: 02/02/22 Status: Ordered mercaptopurine 50 mg oral tablet 2 tablet = 100 mg, By Mouth, Daily in AM, 0 Refills, Maintenance, 01/06/20 11:07:00 EDT Start Date: 01/06/20 Status: Ordered pregabalin 150 mg oral capsule 1 capsule = 150 mg, By Mouth, 2 times a day, # 60 capsule, 5 Refills, Maintenance, 10/30/21 8:55:00EDT, Capsule, [facility]/pharmacy #[id number], generic brand only, 157, cm, 10/30/21 8:21:00 EDT, Height, 80.1, kg, 01/22/20 14:40:00 EDT, Dry Weight Start Date: 10/30/21 Stop Date: 04/28/22 Status: Ordered PriLOSEC OTC 20 mg oral [...] 12/06/21 9:21:00 EDT, Route to Pharmacy Electronically, [id number], Partial fill upon patient request if the prescription is for a schedule II opioid drug.... Start Date: 12/06/21 Status: Ordered Zithromax 250 mg oral tablet 1 pack/packet, By Mouth, Once, # 6 tablet, 0 Refills, Soft Stop, 02/20/22 11:08:00 EDT, Tablet, [facility], Partial fill upon patient request if the prescription is for a schedule II opioid drug., 157, cm, 02/15/22 10:32:00 EDT, Height Start Date: 02/20/22 Status: Ordered Problem List Condition Confirmation Course Effective Dates Status Health Status Informant Abnormal LFTs Confirmed 06/23/09 Active BMI 33.0-33.9,adult Confirmed Active Papanicolaou test, as part of routine gynecological examination Confirmed Active Cancer of anal canal Confirmed Active CC (Crohn's colitis) Confirmed Active Chest Pain Confirmed 06/23/09 Active Glucose intolerance Confirmed Active Diverticulosis 1 Confirmed Active Dyspareunia Confirmed Active Dysphagia Confirmed Active Eczematous dermatitis Confirmed Active ESR raised Confirmed Active Family history of BRCA2 gene positive Confirmed Active Fibromyalgia syndrome Confirmed 10/17/12 Active Hand eczema Confirmed Active Hip pain Confirmed Active History of colonoscopy 2, 3 Confirmed Active Hypercholesterolemia Confirmed 06/23/09 Active Hypertension Confirmed 04/18/10 Active Macrocytic anemia Confirmed Active Obese class I Confirmed Active Palpitations Confirmed Active RLS (restless legs syndrome) Confirmed Active Menopausal vaginal dryness Confirmed Active 1colo 2014; repeat 2020 68899; repeat 2017 Social History Social History Type Response Smoking Status Never smoker entered on: 09/20/16 Sex Patient Care team information Care Team Personnel Name: Anderson Best RN Position: [facility] RN Member Role: Primary Care Nurse Name: Dwight De Oliveira MD Position: [facility] Primary Care Physician Member Role: PCP Address: Address: [address] [place] [address]- Name: Anette Boyce RN Position: S RN Member Role: Primary Care Nurse Name: Afia Hughes RN Position: S RN Member Role: Primary Care Nurse Name: Tomer Merino RN Position: [facility] RN Member Role: Primary Care Nurse Care Team Related Persons Name: ROSE CRENSHAW Address: [address] [address]
--- OUTSIDE RECORDS SUMMARY | 2023-11-27 20:12 | XMS_ITS | Continuity of Care Document ---
Author Organization [facility] Mil[facility] Address [address] [place] [address]- Care Team Providers Care Ux Designer Name Role Phone Dwight De Oliveira MD Primary Care Physician [place] [facility] [place]23 [facility] Adult [address] [place] [address]- Allergies, Adverse Reactions, Alerts No Known Allergies Immunizations Given and Recorded Vaccine Date Status Refusal Reason SARS-CoV-2 (COVID-19) Ad26 vaccine 1 10/27/20 Give n Influenza Virus Vaccine (oldterm) 2 01/31/17 Given tetanus/diphtheria/pertussis, acel(Tdap) 09/20/16 Given tetanus-diphtheria toxoids (Td) 3 01/20/05 Given 1Result Comment: [id number] 2Admin Note: declined 3Admin Note: declined Medications atorvastatin 40 mg oral tablet 1 tablet, By Mouth, Daily, # 90 tablet, 1 Refills, Maintenance, 10/24/22 10:14:00 EDT, [facility] #[id number], 157, cm, 10/17/22 7:48:00 EDT, Height Start Date: 10/24/22 Status: Ordered Clobetasol (Eqv-Temovate) 0.05% topical cream See Instructions, APPLY TO AFFECTED AREA TWICE A DAY, # 60 Gm, 0 Refills, Maintenance, 06/22/22 11:25:00 EST, [facility] 08548, 30, APPLY TO AFFECTED AREA TWICE A DAY, 157, cm, 02/15/22 10:32:00 EDT, Height Start Date: 06/22/22 Status: Ordered fenofibrate 54 mg oral tablet 1 tablet, By Mouth, Daily, # 90 tablet, 1 Refills, Maintenance, 10/24/22 10:14:00 EDT, [facility] #63900, 157, cm, 10/17/22 7:48:00 EDT, Height Start Date: 10/24/22 Status: Ordered lisinopril 20 mg oral tablet 1, tablet, By Mouth, Daily, # 90 tablet, Refills 0, Tot. Refills 0, Maintenance, 11/13/22 8:13:00 EDT, [id number], 157, cm, 10/17/22 7:48:00 EDT, Height Start Date: 11/13/22 Status: Ordered mercaptopurine 50 mg oral tablet 2 tablet = 100 mg, By Mouth, Daily in AM, 0 Refills, Maintenance, 01/06/20 11:07:00 EDT Start Date: 01/06/20 Status: Ordered pregabalin 150 mg oral capsule 1 capsule = 150 mg, By Mouth, 2 times a day, # 60 capsule, 5 Refills, Maintenance, 12/31/22 10:09:00 EDT, Capsule, [facility] #[id number], generic brand only, 157, cm, 10/17/22 7:48:00 [...] 9:21:00 EDT, Route to Pharmacy Electronically, [facility]/pharmacy #[id number], Partial fill upon patient request if the [...] Team Personnel Name: Anderson Best RN Position: [facility] RN Member Role: Primary Care Nurse Name: Dwight De Oliveira MD Position: [facility] Physician - Primary Care Member Role: PCP Address: Address: [address] [place] [address]- Name: Anette Boyce RN Position: [facility] AMB Nurse Member Role: Primary Care Nurse Name: Afia Hughes RN Position: [facility] RN Member Role: Primary Care Nurse Name: Tomer Merino RN Position: [facility] RN Member Role: Primary Care Nurse Care Team Related Persons Name: ROSE CRENSHAW Address: [address] [address]
--- OUTSIDE RECORDS SUMMARY | 2023-11-27 20:12 | XMS_ITS | Continuity of Care Document ---
Author Organization [facility] Milo Address [address] [place] [address]- Care Team Providers Care Dioramist Name Role Phone Dwight De Oliveira MD Primary Care Physician Encounter [facility] [place] Date(s): 02/05/20 - 03/06/20 [facility] Adult [address] [place] [address]- [facility] Allergies, Adverse Reactions, Alerts Substance Reaction Severity [...] Replace Required Details, Route to Pharmacy Electronically, [facility]/pharmacy #[id number], 158, cm, 12/31/19 4:02:00 EDT, He... Start Date: 01/12/20 Status: Ordered atorvastatin 40 mg oral tablet 1 tablet, By Mouth, Daily, # 30 tablet, 5 Refills, Maintenance, 02/05/20 11:40:00 EDT, [facility]/pharmacy#2339, 157, cm, 01/26/20 8:00:00 EDT, Height, 80.1, kg, 01/22/20 14:40:00 EDT, Dry Weight Start Date: 02/05/20 Status: Ordered fenofibrate 54 mg oral tablet 1 tablet, By Mouth, Daily, # 30 tablet, 5 Refills, Maintenance, 02/05/20 11:30:00 EDT, [facility]/pharmacy#2339, 157, cm, 01/26/20 8:00:00 EDT, Height, 80.1, kg, 01/22/20 14:40:00 EDT, Dry Weight Start Date: 02/05/20 Status: Ordered Flagyl 500 mg oral tablet 1 tablet = 500 mg, By Mouth, 3 times a day, # 30 tablet, 0 Refills, Maintenance, 01/26/20 8:16:00 EDT, [facility], 157, cm, 01/26/20 8:00:00 EDT, [...] 02/05/20 11:30:00 EDT, Route to Pharmacy Electronically, [facility]/pharmacy #[id number], 157, cm, 01/26/20 8:00:00 EDT, [...] each, 0 Refills, Maintenance, 01/08/20 14:41:00 EDT, [facility]/pharmacy #2339, 158, cm, 12/31/19 4:02:00 EDT, [...] vaginal dryness(Confirmed) Active 1colo 2014; repeat 2020 92289; repeat 2017 Social History Social History Type Response Smoking Status Never smoker entered on: 09/20/16 Sex
--- OUTSIDE RECORDS SUMMARY | 2023-11-27 20:12 | XMS_ITS | Continuity of Care Document ---
Author Organization [facility] Milo [facility] Address [address] [place] [address]- Care Team Providers Care Commercial Lending Relationship Manager Name Role Phone Dwight De Oliveira MD Primary Care Physician [phone] Encounter [facility] [place] Date(s): 01/12/20 - 02/11/20 [facility] Adult [address] [place] [address]- [facility] Allergies, Adverse Reactions, Alerts Substance Reaction Severity [...] Replace Required Details, Route to Pharmacy Electronically, [facility]/pharmacy #[id number], 158, cm, 12/31/19 4:02:00 EDT, He... Start Date: 01/12/20 Status: Ordered atorvastatin 40 mg oral tablet 1 tablet, By Mouth, Daily, # 30 tablet, 5 Refills, Maintenance, 02/05/20 11:40:00 EDT, [facility]/pharmacy#2339, 157, cm, 01/26/20 8:00:00 EDT, Height, 80.1, kg, 01/22/20 14:40:00 EDT, Dry Weight Start Date: 02/05/20 Status: Ordered fenofibrate 54 mg oral tablet 1 tablet, By Mouth, Daily, # 30 tablet, 5 Refills, Maintenance, 02/05/20 11:30:00 EDT, [facility]/pharmacy#2339, 157, cm, 01/26/20 8:00:00 EDT, Height, 80.1, kg, 01/22/20 14:40:00 EDT, Dry Weight Start Date: 02/05/20 Status: Ordered Flagyl 500 mg oral tablet 1 tablet = 500 mg, By Mouth, 3 times a day, # 30 tablet, 0 Refills, Maintenance, 01/26/20 8:16:00 EDT, [facility], 157, cm, 01/26/20 8:00:00 EDT, [...] 02/05/20 11:30:00 EDT, [facility], cm, 01/26/20 8:00:00 EDT, Height, [...] 01/26/20 8:13:00 EDT, Route to Pharmacy Electronically, [facility] Start Date: 01/26/20 Stop Date: 02/25/20 Status: Ordered loperamide 2 mg oral capsule 4 mg, 2, capsule, By Mouth, 3 times a day before meals and bedtime, PRN, for 30 days, # 240 capsule, Refills 0, Tot. Refills 0, Acute 02/25/20 8:13:00 EDT, Loose Stool, 01/26/20 8:13:00 EDT, Route toPharmacy Electronically, [facility],... Start Date: 01/26/20 Stop Date: [...] each, 0 Refills, Maintenance, 01/08/20 14:41:00 EDT, [facility], 158, cm, 12/31/19 4:02:00 EDT, Height, [...]
--- OUTSIDE RECORDS SUMMARY | 2023-11-27 20:12 | XMS_ITS | Continuity of Care Document ---
Author Organization [facility] Address [address] [place] [address]- Care Team Providers Care Dragline Operator Helper Name Role Phone Dwight De Oliveira MD Primary Care Physician Encounter [facility] [place] Date(s): 08/24/21 - 09/23/21 [facility] [address], [place] [address] Attending Physician: Calderon Rodrigez Admitting Physician: AdmtrCalderon Referring Physician: Admtr, Ar8 Allergies, Adverse Reactions, Alerts No Known Allergies [...] 12/30/19 Not Given Patient Refuses 1Result Comment: [id number] 2Admin Note: declined 3Admin Note: declined Medications amLODIPine 5 mg oral tablet 1 tablet, By Mouth, Daily, # 30 tablet, 5 Refills, [facility], 157, cm, 06/07/21 8:43:00 EST, Height, 80.1, kg, 01/22/20 14:40:00 EDT, Dry Weight Start Date: 06/18/21 Status: Ordered atorvastatin 40 mg oral tablet 1 tablet, By Mouth, Daily, # 30 tablet, 5 Refills, [facility], 157, cm, 06/07/21 8:43:00 EST, Height, 80.1, kg, 01/22/20 14:40:00 EDT, Dry Weight Start Date: 08/07/21 Status: Ordered clobetasol 0.05% topical cream 1 application, Topically, 2 times a day, # 60 Gm, 0 Refills, Maintenance, 08/30/21 16:43:00 EDT, Cream, [facility]/pharmacy #2339, Partial fill upon patient request if the prescription is for a schedule II opioid drug., 1 application Topically 2 times a day,... Start Date: 08/30/21 Status: Ordered fenofibrate 54 mg oral tablet 1 tablet, By Mouth, Daily, # 30 tablet, 5 Refills, [facility]1800, 157, cm, 06/07/21 8:43:00 EST, Height, 80.1, kg, 01/22/20 14:40:00 EDT, Dry Weight Start Date: 08/07/21 Status: Ordered Humira See Instructions, 40 mg Subcutaneous Infusion Once every 15 days, 0 Refills, Maintenance, 06/20/12 10:48:17 EST Start Date: 06/20/12 Status: Ordered lisinopril 20 mg oral tablet See Instructions, TAKE 1 TABLET BY MOUTH EVERY DAY, # 30 tablet, Refills 11, Tot. Refills 11, Maintenance, 02/07/21 9:40:00 EDT, Instructions Replace Required Details, Route to Pharmacy Electronically, [facility]/pharmacy #[id number], 157, cm, 10/27/20 10:35:00 ED... Start Date: 02/07/21 Status: Ordered mercaptopurine 50 mg oral tablet 2 tablet = 100 mg, By Mouth, Daily in AM, 0 Refills, Maintenance, 01/06/20 11:07:00 EDT Start Date: 01/06/20 Status: Ordered pregabalin 150 mg oral capsule 1 capsule = 150 mg, By Mouth, 2 times a day, # 60 capsule, 5 Refills, Maintenance, 05/31/21 11:19:00 EST, Capsule, [facility]/pharmacy #0693, generic brand only, 157, cm, 05/30/21 [...] Diverticulosis(Confirmed) 1 Active Dyspareunia(Confirmed) Active Dysphagia(Confirmed) Active Eczematous dermatitis(Confirmed) Active ESR raised(Confirmed) Active Family history of BRCA2 gene positive(Confirmed) Active Fibromyalgia syndrome(Confirmed) 10/17/12 Active Hip pain(Confirmed) Active History of colonoscopy(Confirmed) 2, 3 Active Hypercholesterolemia(Confirmed) 06/23/09 Active Hypertension(Confirmed) 04/18/10 Active Obese class I(Confirmed) Active Palpitations(Confirmed) Active RLS (restless legs syndrome)(Confirmed) Active Menopausal vaginal dryness(Confirmed) Active 1colo 2014; repeat 2020 39949; repeat 2017 Social History Social History Type Response Smoking Status Never smoker entered on: 09/20/16 Sex
--- OUTSIDE RECORDS SUMMARY | 2023-11-27 20:12 | XMS_ITS | Continuity of Care Document ---
Author Organization [facility] Mil[facility] Address [address] [place] [address]- Care Team Providers Care Brick Grader Name Role Phone Dwight De Oliveira MD Primary Care Physician Encounter [facility] Date(s): 08/15/22 - 09/14/22 [facility] Adult [address] [place] [address]- Allergies, Adverse Reactions, Alerts No Known Allergies [...] 12/30/19 Not Given Patient Refuses 1Result Comment: [id number] 2Admin Note: declined 3Admin Note: declined Medications atorvastatin 40 mg oral tablet 1 tablet, By Mouth, Daily, # 90 tablet, 0 Refills, Maintenance, 08/01/22 15:19:00 EDT, [facility] #[id number], 157, cm, 02/15/22 10:32:00 EDT, Height Start Date: 08/01/22 Status: Ordered Clobetasol (Eqv-Temovate) 0.05% topical cream See Instructions, APPLY TO AFFECTED AREA TWICE A DAY, # 60 Gm, 0 Refills, Maintenance, 06/22/22 11:25:00 EST, [facility], 30, APPLY TO AFFECTED AREA TWICE A DAY, 157, cm, 10/13/22 10:32:00 EDT, Height Start Date: 06/22/22 Status: Ordered fenofibrate 54 mg oral tablet 1 tablet, By Mouth, Daily, # 90 tablet, 0 Refills, Maintenance, 08/01/22 15:19:00 EDT, [id number], 157, cm, 02/15/22 10:32:00 EDT, Height Start Date: 08/01/22 Status: Ordered Humira See Instructions, 40 mg Subcutaneous Infusion Once every 15 days, 0 Refills, Maintenance, 06/20/12 10:48:17 EST Start Date: 06/20/12 Status: Ordered lisinopril 20 mg oral tablet 1, tablet, By Mouth, Daily, # 90 tablet, Refills 0, Tot. Refills 0, Maintenance, 08/01/22 15:19:00 EDT, Route to Pharmacy Electronically, [facility][id number], 157, cm, 02/15/22 10:32:00 EDT, Height Start Date: 08/01/22 Status: Ordered mercaptopurine 50 mg oral tablet 2 tablet = 100 mg, By Mouth, Daily in AM, 0 Refills, Maintenance, 01/06/20 11:07:00 EDT Start Date: 01/06/20 Status: Ordered pregabalin 150 mg oral capsule 1 capsule = 150 mg, By Mouth, 2 times a day, # 60 capsule, 5 Refills, Maintenance, 08/02/22 8:50:00EDT, Capsule, [facility] #[id number], generic brand only, 157, cm, 02/15/22 10:32:00 EDT, Height Start Date: 08/02/22 Stop Date: 01/29/23 Status: Ordered PriLOSEC OTC 20 mg oral [...] 12/06/21 9:21:00 EDT, Route to Pharmacy Electronically, [facility]/pharmacy #[id number], Partial fill upon patient request if the [...] dryness Confirmed Active 1colo 2014; repeat 2020 80074; repeat 2017 Social History Social History Type Response Smoking Status Never smoker entered on: 09/20/16 Sex Patient Care team information Care Team Personnel Name: Anderson Best RN Position: S RN Member Role: Primary Care Nurse Name: Dwight De Oliveira MD Position: [facility] Primary Care Physician Member Role: PCP Address: Address: [address] [place] [address]- Name: Anette Boyce RN Position: S RN Member Role: Primary Care Nurse Name: Afia Hughes RN Position: S RN Member Role: Primary Care Nurse Name: Tomer Merino RN Position: S RN Member Role: Primary Care Nurse Care Team Related Persons Name: ROSE CRENSHAW Address: [address] [address]
--- OUTSIDE RECORDS SUMMARY | 2023-11-27 20:12 | XMS_ITS | Continuity of Care Document ---
Author Organization [facility] Address [address] [place] [address]- Care Team Providers Care Field Operations Supervisor Name Role Phone Dwight De Oliveira MD Primary Care Physician [phone] [place] [facility] [place](s): 08/08/23 - 09/07/23 [facility] Adult [address] [place] [address]- Allergies, Adverse Reactions, Alerts No Known Allergies Immunizations Given and Recorded Vaccine Date Status Refusal Reason SARS-CoV-2 (COVID-19) Ad26 vaccine 1 10/27/20 Give n Influenza Virus Vaccine (oldterm) 2 01/31/17 Given tetanus/diphtheria/pertussis, acel(Tdap) 09/20/16 Given tetanus-diphtheria toxoids (Td) 3 01/20/05 Given 1Result Comment: [id number] 2Admin Note: declined 3Admin Note: declined Medications atorvastatin 40 mg oral tablet 1 tablet, By Mouth, Daily, # 90 tablet, 1 Refills, Maintenance, 05/13/23 9:00:00 [facility] #[id number], 157, cm, 10/17/22 7:48:00 EDT, Height Start Date: 05/13/23 Status: Ordered Clobetasol (Eqv-Temovate) 0.05% topical cream See Instructions, APPLY TO AFFECTED AREA TWICE A DAY, # 60 Gm, 0 Refills, Maintenance, 06/22/22 11:25:00 [facility] 46[facility], 30, APPLY TO AFFECTED AREA TWICE A DAY, 157, cm, 02/15/22 10:32:00 EDT, Height Start Date: 06/22/22 Status: Ordered fenofibrate 54 mg oral tablet 1 tablet, By Mouth, Daily, # 90 tablet, 1 Refills, Maintenance, 05/13/23 9:00:00 EST, [facility] #[id number], 157, cm, 10/17/22 7:48:00 EDT, Height Start Date: 05/13/23 Status: Ordered lisinopril 20 mg oral tablet 1, tablet, By Mouth, Daily, # 90 tablet, Refills 1, Maintenance, 08/08/23 10:38:00 EDT, Route to Pharmacy Electronically, [id number], 157, cm, 06/21/23 8:23:00 EST, Height Start Date: 08/08/23 Status: Ordered mercaptopurine 50 mg oral tablet 2 tablet = 100 mg, By Mouth, Daily in AM, 0 Refills, Maintenance, 01/06/20 11:07:00 EDT Start Date: 01/06/20 Status: Ordered pregabalin 150 mg oral capsule 1 capsule = 150 mg, By Mouth, 2 times a day, # 60 capsule, 5 Refills, Maintenance, 07/09/23 15:47:00 EST, Capsule, [facility] #[id number], generic brand only, 157, cm, 06/21/23 8:23:00 [...] 12/06/21 9:21:00 EDT, Route to Pharmacy Electronically, [facility]/pharmacy #[id number], Partial fill upon patient request if the [...] Personnel Name: Dwight De Oliveira MD Position: [facility] Physician - Primary Care Member Role: PCP Address: Address: [address] [place] [address]- Name: Anette Boyce RN Position: [facility] AMB Nurse Member Role: Primary Care Nurse Name: Afia Hughes RN Position: [facility] RN Member Role: Primary Care Nurse Name: Tomer Merino RN Position: [facility] RN Member Role: Primary Care Nurse Care Team Related Persons Name: ROSE CRENSHAW Address: [address] [address]
--- OUTSIDE RECORDS SUMMARY | 2023-11-27 20:12 | XMS_ITS | Continuity of Care Document ---
Author Organization [facility] Address [address] [place] [address]- Care Team Providers Care Clinical Services Specialist Name Role Phone Dwight De Oliveira MD Primary Care Physician Encounter [facility] [place] Date(s): 06/04/19 - 07/10/[address] [address]- [facility] Attending Physician: Dwight De Oliveira MD Admitting Physician: Dwight De Oliveira MD Referring Physician: Dwight De Oliveira MD Allergies, Adverse Reactions, Alerts Substance Reaction [...] amLODIPine 5 mg oral tablet See Instructions, # 30 tablet, Refills 5 Tot. Refills 5, TAKE 1 TABLET BY MOUTH EVERY DAY, [facility]/pharmacy #[id number] Start Date: 01/15/19 Status: Ordered atorvastatin 40 mg oral tablet See Instructions, # 30 tablet, Refills 5 Tot. Refills 5, TAKE 1 TABLET BY MOUTH EVERY DAY, [facility]/pharmacy #[id number] Start Date: 01/22/19 Status: Ordered atropine-diphenoxylate 0.025 mg-2.5 mg oral tablet 2, tablet, By Mouth, 4 times a day, Refills 0, Maintenance, 05/01/18 8:50:40 EST Start Date: 05/01/18 Status: Ordered azathioprine 50 mg oral tablet 2 tablet = 100 mg, By Mouth, 2 times a day, 10/23/06 11:55:47 Start Date: 10/23/06 Status: Ordered fenofibrate 54 mg oral tablet See Instructions, # 30 tablet, Refills 5 Tot. Refills 5, TAKE 1 TABLET BY MOUTH EVERY DAY, [facility]/pharmacy #[id number] Start Date: 01/22/19 Status: Ordered Humira See Instructions, 40 mg Subcutaneous Infusion Once every 15 days, 0 Refills, Maintenance, 06/20/12 10:48:17 Start Date: 06/20/12 Status: Ordered lisinopril 20 mg oral tablet See Instructions, # 30 tablet, Refills 5 Tot. Refills 5, TAKE 1 TABLET BY MOUTH EVERY DAY, [facility]pharmacy #[id number] Start Date: 01/15/19 Status: Ordered pregabalin 150 mg oral capsule 1 capsule = 150 mg, By Mouth, 2 times a day, # 180 capsule, 0 Refills, Maintenance, 05/22/19 15:35:00 EST, Capsule, [facility]/pharmacy #2339, generic brand only, 158, cm, 04/01/19 9:54:00 EST, Height, 81.6, kg, 09/24/17 8:57:00 EDT, Dry Weight Start Date: 05/22/19 Status: Ordered Problem List Condition Effective Dates [...] Menopausal vaginal dryness(Confirmed) Active 1colo 2014; repeat 2020; repeat 2018 Social History Social History Type Response Smoking Status Never smoker entered on: 09/20/16 Sex
--- OUTSIDE RECORDS SUMMARY | 2023-11-27 20:12 | XMS_ITS | Continuity of Care Document ---
Author Organization [facility] Address [address] [place] [address]- Care Team Providers Care Manager Intensive Care Unit Name Role Phone Dwight De Oliveira MD Primary Care Physician [place] [facility] [place] 09[place]01[place]20 - 10/01/20 [facility] [address] [place], [place] [address] Attending Physician: Calderon Rodrigez Admitting Physician: AdmCalderon hearn Referring Physician: AdmtrCalderon Allergies, Adverse Reactions, Alerts [...] Required Details, Route to Pharmacy Electronically, [facility]/pharmacy #[id number], 157, cm, 05/03/20 6:52:00 EST, He... Start Date: 07/19/20 Status: Ordered atorvastatin 40 mg oral tablet 1 tablet, By Mouth, Daily, # 30 tablet, 5 Refills, Maintenance, 08/02/20 15:10:00 EDT, [facility]/pharmacy#6229, 157, cm, 05/03/20 6:52:00 EST, Height, 80.1, kg, 01/22/20 14:40:00 EDT, Dry Weight Start Date: 08/02/20 Status: Ordered fenofibrate 54 mg oral tablet 1 tablet, By Mouth, Daily, # 30 tablet, 5 Refills, Maintenance, 08/02/20 15:13:00 EDT, [facility]/pharmacy#2339, 157, cm, 05/03/20 6:52:00 EST, Height, 80.1, kg, 01/22/20 14:40:00 EDT, Dry Weight Start Date: 08/02/20 Status: Ordered Flagyl 500 mg oral tablet 1 tablet = 500 mg, By Mouth, 3 times a day, # 30 tablet, 0 Refills, Maintenance, 01/26/20 8:16:00 EDT, [facility], 157, cm, 01/26/20 8:00:00 [...] 08/02/20 15:13:00 EDT, Route to Pharmacy Electronically, [facility]/pharmacy #[id number], 157, cm, 05/03/20 6:52:00 EST, Height, [...] each, 0 Refills, Maintenance, 01/08/20 14:41:00 EDT, [facility]/pharmacy #2339, 158, cm, 12/31/19 4:02:00 EDT, Height, 85, kg, 12/29/19 16:02:0... Start Date: 01/08/20 Status: Ordered pregabalin 150 mg oral capsule 1 capsule = 150 mg, By Mouth, 2 times a day, for 30 days, # 60 capsule, 5 Refills, Hard Stop 11/30/20 14:28:00 EDT, 06/03/20 14:28:00 EST, Capsule, [facility]/pharmacy #2339, generic brand only, 157, cm, 05/03/20 6:52:00 EST, Height, 80.1, kg, 01/22/20 14:40... Start Date: 06/03/20 Stop Date: 11/30/20 Status: Ordered pregabalin 150 mg oral capsule 1 capsule = 150 mg, By Mouth, 2 times a day, # 60 capsule, 5 Refills, Maintenance, 06/03/20 16:22:00 EST, Capsule, [facility]/pharmacy #0693, generic brand only, 157, cm, 05/03/20 [...] 17:39:00 EDT, Aerosol, Route to Pharmacy Electronically, [id number], [facility]/pharmacy #2339, 157, cm, 09/01/20 17:23:00 EDT, Hei... Start Date: 09/01/20 Stop Date: 5/6/21 Status: Ordered Problem List Condition Effective Dates [...] vaginal dryness(Confirmed) Active 1colo 2014; repeat 2020 02658; repeat 2017 Social History Social History Type Response Smoking Status Never smoker entered on: 09/20/16 Sex
--- OUTSIDE RECORDS SUMMARY | 2023-11-27 20:12 | XMS_ITS | Continuity of Care Document ---
Author Organization [facility] Address [address] [place] [address]- Care Team Providers Care Composite Laminator Name Role Phone Dwight De Oliveira MD Primary Care Physician [place] [facility] [place](s): 02/09/21 - 03/11/21 [facility] Adult [address] [place] [address]- Allergies, Adverse Reactions, Alerts Substance Reaction Severity [...] 12/30/19 Not Given Patient Refuses 1Result Comment: [id number] 2Admin Note: declined 3Admin Note: declined Medications amLODIPine 5 mg oral tablet See Instructions, TAKE 1 TABLET BY MOUTH EVERY DAY, # 30 tablet, Refills 5, Tot. Refills 5, Soft Stop, 12/21/20 9:23:00 EDT, Instructions Replace Required Details, Route to Pharmacy Electronically, [facility]/pharmacy #[id number], 157, cm, 10/27/20 10:35:00 EDT, H... Start Date: 12/21/20 Status: Ordered atorvastatin 40 mg oral tablet See Instructions, TAKE 1 TABLET BY MOUTH EVERY DAY, # 30 tablet, 5 Refills, Maintenance, 02/14/21 8:04:00 EDT, [facility]/pharmacy #2339, 157, cm, 10/27/20 10:35:00 EDT, Height, 80.1, kg, 01/22/20 14:40:00 EDT, Dry Weight Start Date: 02/14/21 Status: Ordered fenofibrate 54 mg oral tablet See Instructions, TAKE 1 TABLET BY MOUTH EVERY DAY, # 30 tablet, 5 Refills, Maintenance, 02/14/21 8:04:00 EDT, [facility]/pharmacy #2339, 157, cm, 10/27/20 10:35:00 EDT, Height, [...] Required Details, Route to Pharmacy Electronically, [facility]/pharmacy #2339, 157, cm, 10/27/20 10:35:00 ED... Start Date: 02/07/21 Status: Ordered mercaptopurine 50 mg oral tablet 2 tablet = 100 mg, By Mouth, Daily in AM, 0 Refills, Maintenance, 01/06/20 11:07:00 EDT Start Date: 01/06/20 Status: Ordered pregabalin 150 mg oral capsule 1 capsule = 150 mg, By Mouth, 2 times a day, # 60 capsule, 5 Refills, Maintenance, 12/02/20 8:32:00EDT, Capsule, [facility]/pharmacy #0693, generic brand only, 157, cm, 10/27/20 10:35:00 EDT, Height, 80.1,kg, 01/22/20 14:40:00 EDT, Dry Weight Start Date: 12/02/20 Stop Date: 05/31/21 Status: Ordered PriLOSEC OTC 20 mg oral [...] 17:39:00 EDT, Aerosol, Route to Pharmacy Electronically, [id number], [facility]/pharmacy #2339, 157, cm, 09/01/20 17:23:00 EDT, Hei... [...] vaginal dryness(Confirmed) Active 1colo 2014; repeat 2020 91318; repeat 2017 Social History Social History Type Response Smoking Status Never smoker entered on: 09/20/16 Sex
--- OUTSIDE RECORDS SUMMARY | 2023-11-27 20:12 | XMS_ITS | Continuity of Care Document ---
Author Organization [facility] Address [address] [place] [address]- Care Team Providers Care Police Worker Name Role Phone Dwight De Oliveira MD Primary Care Physician Encounter [facility] [place] Date(s): 12/17/19 - 04/15/20 [facility] Adult [address] [place] [address]- Attending Physician: Dwight De Oliveira MD Allergies, [...] Details, Route to Pharmacy Electronically, [facility]/pharmacy #[id number], 158, cm, 12/31/19 4:02:00 EDT, He... Start Date: 01/12/20 Status: Ordered atorvastatin 40 mg oral tablet 1 tablet, By Mouth, Daily, # 30 tablet, 5 Refills, Maintenance, 02/05/20 11:40:00 EDT, [facility]/pharmacy#2339, 157, cm, 01/26/20 8:00:00 EDT, Height, 80.1, kg, 01/22/20 14:40:00 EDT, Dry Weight Start Date: 02/05/20 Status: Ordered fenofibrate 54 mg oral tablet 1 tablet, By Mouth, Daily, # 30 tablet, 5 Refills, Maintenance, 02/05/20 11:30:00 EDT, [facility]/pharmacy#2339, 157, cm, 01/26/20 8:00:00 EDT, Height, 80.1, kg, 01/22/20 14:40:00 EDT, Dry Weight Start Date: 02/05/20 Status: Ordered Flagyl 500 mg oral tablet 1 tablet = 500 mg, By Mouth, 3 times a day, # 30 tablet, 0 Refills, Maintenance, 01/26/20 8:16:00 EDT, [facility], 157, cm, 01/26/20 [...] 02/05/20 11:30:00 EDT, Route to Pharmacy Electronically, [facility]/pharmacy #2339, 157, cm, 01/26/20 8:00:00 EDT, Height, [...] vaginal dryness(Confirmed) Active 1colo 2014; repeat 2020 47617; repeat 2017 Social History Social History Type Response Smoking Status Never smoker entered on: 09/20/16 Sex
--- OUTSIDE RECORDS SUMMARY | 2023-11-27 20:12 | XMS_ITS | Continuity of Care Document ---
Author Organization [facility] Address [address] [place] [address]- Care Team Providers Care Membership Secretary Name Role Phone Dwight De Oliveira MD Primary Care Physician [place] [facility] [place](s): 08/30/21 - 09/06/21 [facility] Adult [address] [place] [address]- Attending Physician: Dwight De Oliveira MD Allergies, [...] 12/30/19 Not Given Patient Refuses 1Result Comment: [id number] 2Admin Note: declined 3Admin Note: declined Medications amLODIPine 5 mg oral tablet 1 tablet, By Mouth, Daily, # 30 tablet, 5 Refills, [facility] 91731, 157, cm, 06/07/21 8:43:00 EST, Height, 80.1, kg, 01/22/20 14:40:00 EDT, Dry Weight Start Date: 06/18/21 Status: Ordered atorvastatin 40 mg oral tablet 1 tablet, By Mouth, Daily, # 30 tablet, 5 Refills, [facility] 25720, 157, cm, 06/07/21 8:43:00 EST, Height, 80.1, kg, 01/22/20 14:40:00 EDT, Dry Weight Start Date: 08/07/21 Status: Ordered clobetasol 0.05% topical cream 1 application, Topically, 2 times a day, # 60 Gm, 0 Refills, Maintenance, 08/30/21 16:43:00 EDT, Cream, [facility]/pharmacy #2339, Partial fill upon patient request if the prescription is for a schedule II opioid drug., 1 application Topically 2 times a day,... Start Date: 08/30/21 Status: Ordered fenofibrate 54 mg oral tablet 1 tablet, By Mouth, Daily, # 30 tablet, 5 Refills, [facility] 57166, 157, cm, 06/07/21 8:43:00 EST, Height, 80.1, [...] Required Details, Route to Pharmacy Electronically, [facility]/pharmacy #2339, 157, cm, 10/27/20 10:35:00 ED... [...] 5 Refills, Maintenance, 05/31/21 11:19:00 EST, Capsule, [facility]/pharmacy #0693, generic brand only, 157, cm, 05/30/21 [...] vaginal dryness(Confirmed) Active 1colo 201418; repeat 2020 29185; repeat 2017 Vital Signs Most recent to oldest [Reference Range]: 1 Height 157 cm (08/30/21 4:09 PM) Weight 81.7 kg (08/30/21 4:09 PM) Oxygen Saturation [94-100 %] 98 % (08/30/21 4:09 PM) Pulse Rate [55-90 bpm] 87 bpm (08/30/21 4:09 PM) Body Mass Index [18.5-24.99] 33.15 *>HHI* (08/30/21 4:09 PM) Blood Pressure [90-138/55-84 mm Hg] 139/ 85mm Hg *H* (08/30/21 4:09 PM) Mode of Delivery (Oxygen) Room air (08/30/21 4:09 PM) Blood pressure sites Arm, left (08/30/21 4:09 PM) Weight Obtained Via Standing scale (08/30/21 4:09 PM) Social History Social History Type Response Smoking Status Never smoker entered on: 09/20/16 Sex
--- OUTSIDE RECORDS SUMMARY | 2023-11-27 20:12 | XMS_ITS | Continuity of Care Document ---
Author Organization [facility] Milo lt Address [address] [place] [address]- Care Team Providers Care Film Sound Coordinator Name Role Phone Dwight De Oliveira MD Primary Care Physician Encounter [facility] [place] Date(s): 12/21/21 - 04/20/22 [facility] Adult [address] [place] [address]- Attending Physician: Dwight De Oliveira MD Allergies, [...] 12/30/19 Not Given Patient Refuses 1Result Comment: [id number] 2Admin Note: declined 3Admin Note: declined Medications atorvastatin 40 mg oral tablet 1 tablet, By Mouth, Daily, # 30 tablet, 5 Refills, Maintenance, 02/15/22 12:10:00 EDT, [facility], 157, cm, 02/15/22 10:32:00 EDT, Height Start Date: 02/15/22 Status: Ordered clobetasol 0.05% topical cream See Instructions, APPLY TO AFFECTED AREA TWICE A DAY, # 60 Gm, 0 Refills, Maintenance, 02/05/22 6:39:00 EDT, [facility], 60, APPLY TO AFFECTED AREA TWICE A DAY, 157, cm, 12/06/21 8:57:00 EDT, Height Start Date: 02/05/22 Status: Ordered fenofibrate 54 mg oral tablet 1 tablet, By Mouth, Daily, # 30 tablet, 5 Refills, Maintenance, 02/02/22 6:48:00 EDT, [facility], 157, cm, 12/06/21 8:57:00 EDT, Height Start Date: 02/02/22 Status: Ordered Humira See Instructions, 40 mg Subcutaneous Infusion Once every 15 days, 0 Refills, Maintenance, 06/20/12 10:48:17 EST Start Date: 06/20/12 Status: Ordered lisinopril 20 mg oral tablet 1, tablet, By Mouth, Daily, # 30 tablet, Refills 5, Maintenance, 02/02/22 6:49:00 EDT, Route to Pharmacy Electronically, [facility], 157, cm, 12/06/21 8:57:00 EDT, Height Start Date: 02/02/22 Status: Ordered mercaptopurine 50 mg oral tablet 2 tablet = 100 mg, By Mouth, Daily in AM, 0 Refills, Maintenance, 01/06/20 11:07:00 EDT Start Date: 01/06/20 Status: Ordered pregabalin 150 mg oral capsule 1 capsule = 150 mg, By Mouth, 2 times a day, # 60 capsule, 5 Refills, Maintenance, 04/20/22 15:34:00 EST, Capsule, [facility]/pharmacy #0693, generic brand only, 157, cm, 02/15/22 10:32:00 EDT, Height Start Date: 04/20/22 Stop Date: 10/17/22 Status: Ordered pregabalin 150 mg oral capsule 1 capsule = 150 mg, By Mouth, 2 times a day, for 30 days, # 60 capsule, 5 Refills, Hard Stop 04/28/22 8:55:00 EST, 10/30/21 8:55:00 EDT, Capsule, [facility], generic brand only, 157, cm, 10/30/21 8:21:00 EDT, Height, 80.1, kg, 01/22/20 14:40:0... Start Date: 10/30/21 Stop Date: 04/28/22 Status: [...] 12/06/21 9:21:00 EDT, Route to Pharmacy Electronically, [facility]/pharmacy #2339, Partial fill upon patient request if the prescription is for a schedule II opioid drug.... Start Date: 12/06/21 Status: Ordered Zithromax 250 mg oral tablet 1 pack/packet, By Mouth, Once, # 6 tablet, 0 Refills, Soft Stop, 02/20/22 11:08:00 EDT, Tablet, [facility]/pharmacy #2339, Partial fill upon patient request if [...] Team Personnel Name: Anderson Best RN Position: [facility] RN Member Role: Primary Care Nurse Name: Dwight De Oliveira MD Position: [facility] Primary Care Physician Member Role: PCP Address: Address: [address] [place] [address]- Name: Anette Boyce RN Position: S RN Member Role: Primary Care Nurse Name: Afia Hughes RN Position: S RN Member Role: Primary Care Nurse Name: Tomer Merino RN Position: S RN Member Role: Primary Care Nurse Care Team Related Persons Name: ROSE CRENSHAW Address: home [address] [place] [id number]
--- OUTSIDE RECORDS SUMMARY | 2023-11-27 20:12 | XMS_ITS | Continuity of Care Document ---
Author Organization [facility] Milo lt Address [address] [place] [address]- Care Team Providers Care Grading Machine Operator Name Role Phone Dwight De Oliveira MD Primary Care Physician [phone] En[place] [facility] [place] Date(s): 05/28/23 - 06/28/23 [facility] Adult [address] [place] [address]- Attending Physician: Lisa Massey Allergies, Adverse Reactions, Alerts No Known Allergies Immunizations Given and Recorded Vaccine Date Status Refusal Reason SARS-CoV-2 (COVID-19) Ad26 vaccine 1 10/27/20 Give n Influenza Virus Vaccine (oldterm) 2 01/31/17 Given tetanus/diphtheria/pertussis, acel(Tdap) 09/20/16 Given tetanus-diphtheria toxoids (Td) 3 01/20/05 Given 1Result Comment: [id number] 2Admin Note: declined 3Admin Note: declined Medications atorvastatin 40 mg oral tablet 1 tablet, By Mouth, Daily, # 90 tablet, 1 Refills, Maintenance, 05/13/23 9:00:00 [facility] #[id number], 157, cm, 10/17/22 7:48:00 EDT, Height Start Date: 05/13/23 Status: Ordered Clobetasol (Eqv-Temovate) 0.05% topical cream See Instructions, APPLY TO AFFECTED AREA TWICE A DAY, # 60 Gm, 0 Refills, Maintenance, 06/22/22 11:25:00 [facility], 30, APPLY TO AFFECTED AREA TWICE A DAY, 157, cm, 02/15/22 10:32:00 EDT, Height Start Date: 06/22/22 Status: Ordered fenofibrate 54 mg oral tablet 1 tablet, By Mouth, Daily, # 90 tablet, 1 Refills, Maintenance, 05/13/23 9:00:00 EST, [facility] #[id number], 157, cm, 10/17/22 7:48:00 EDT, Height Start Date: 05/13/23 Status: Ordered lisinopril 20 mg oral tablet 1, tablet, By Mouth, Daily, # 90 tablet, Refills 1, Tot. Refills 1, Maintenance, 02/13/23 8:15:00 EDT, [id number], 157, cm, 10/17/22 7:48:00 EDT, Height Start Date: 02/13/23 Status: Ordered mercaptopurine 50 mg oral tablet 2 tablet = 100 mg, By Mouth, Daily in AM, 0 Refills, Maintenance, 01/06/20 11:07:00 EDT Start Date: 01/06/20 Status: Ordered pregabalin 150 mg oral capsule 1 capsule = 150 mg, By Mouth, 2 times a day, # 60 capsule, 5 Refills, Maintenance, 12/31/22 10:09:00 EDT, Capsule, [facility] #[id number], generic brand only, 157, cm, 10/17/22 7:48:00 [...] 12/06/21 9:21:00 EDT, Route to Pharmacy Electronically, [facility]/pharmacy #1860, Partial fill upon patient request if the [...] Personnel Name: Dwight De Oliveira MD Position: [facility] Physician - Primary Care Member Role: PCP Address: Address: [address] [place] [address] Name: Antete Boyce RN Position: [facility] AMB Nurse Member Role: Primary Care Nurse Name: Afia Hughes RN Position: [facility] RN Member Role: Primary Care Nurse Name: Tomer Merino RN Position: [facility] RN Member Role: Primary Care Nurse Care Team Related Persons Name: NATACHAVICTOR MANUEL ROSE Address: [address] [address]
--- OUTSIDE RECORDS SUMMARY | 2023-11-27 20:13 | XMS_ITS | Continuity of Care Document ---
Author Organization [facility] Milo lt Address [address] [place] [address]- Care Team Providers Care Assembly Adjuster Name Role Phone Dwight De Oliveira MD Primary Care Physician Encounter [facility] Date(s): 02/14/22 - 03/16/22 [facility] Adult [address] [place] [address]- Allergies, Adverse Reactions, Alerts No Known Allergies [...] 12/30/19 Not Given Patient Refuses 1Result Comment: [id number] 2Admin Note: declined 3Admin Note: declined Medications atorvastatin 40 mg oral tablet 1 tablet, By Mouth, Daily, # 30 tablet, 5 Refills, Maintenance, 02/15/22 12:10:00 EDT, [facility]/pharmacy#2339, 157, cm, 02/15/22 10:32:00 EDT, Height Start Date: 02/15/22 Status: Ordered clobetasol 0.05% topical cream See Instructions, APPLY TO AFFECTED AREA TWICE A DAY, # 60 Gm, 0 Refills, Maintenance, 02/05/22 6:39:00 EDT, [facility], 60, APPLY TO AFFECTED AREA TWICE A DAY, 157, cm, 12/06/21 8:57:00 EDT, Height Start Date: 02/05/22 Status: Ordered fenofibrate 54 mg oral tablet 1 tablet, By Mouth, Daily, # 30 tablet, 5 Refills, Maintenance, 02/02/22 6:48:00 EDT, [facility] STORE 15104, 157, cm, 12/06/21 8:57:00 EDT, Height Start Date: 02/02/22 Status: Ordered Humira See Instructions, 40 mg Subcutaneous Infusion Once every 15 days, 0 Refills, Maintenance, 06/20/12 10:48:17 EST Start Date: 06/20/12 Status: Ordered lisinopril 20 mg oral tablet 1, tablet, By Mouth, Daily, # 30 tablet, Refills 5, Maintenance, 02/02/22 6:49:00 EDT, Route to Pharmacy Electronically, [facility] STORE 61075, 157, cm, 12/06/21 8:57:00 EDT, Height Start Date: 02/02/22 Status: Ordered mercaptopurine 50 mg oral tablet 2 tablet = 100 mg, By Mouth, Daily in AM, 0 Refills, Maintenance, 01/06/20 11:07:00 EDT Start Date: 01/06/20 Status: Ordered pregabalin 150 mg oral capsule 1 capsule = 150 mg, By Mouth, 2 times a day, # 60 capsule, 5 Refills, Maintenance, 10/30/21 8:55:00EDT, Capsule, [facility]/pharmacy #0693, generic brand only, 157, cm, 10/30/21 [...] 12/06/21 9:21:00 EDT, Route to Pharmacy Electronically, [facility]/pharmacy #2339, Partial fill upon patient request [...] dryness Confirmed Active 1colo 2014; repeat 2020 72020; repeat 2017 Social History Social History Type Response Smoking Status Never smoker entered on: 09/20/16 Sex Patient Care team information Care Team Personnel Name: Anderson Best RN Position: [facility] RN Member Role: Primary Care Nurse Name: Dwight De Oliveira MD Position: [facility] Primary Care Physician Member Role: PCP Address: Address: [address] [place] [address]- Name: Anette Boyce RN Position: S RN Member Role: Primary Care Nurse Name: Afia Hughes RN Position: S RN Member Role: Primary Care Nurse Name: Tomer Merino RN Position: S RN Member Role: Primary Care Nurse Care Team Related Persons Name: ROSE CRENSHAW Address: [address] [address]
--- OUTSIDE RECORDS SUMMARY | 2023-11-27 20:13 | XMS_ITS | Continuity of Care Document ---
Author Organization [facility] Milo Address [address] [place] [address]- Care Team Providers Care Consulting Systems Engineer Name Role Phone Yennifer OSORIO, Dwight Dunlap Primary Care Physician Encounter [facility] [place] Date(s): 06/22/19 - 06/29/19 [facility] Adult [address] [place] [address]- [facility] Encounter Diagnosis Conjunctivitis of left eye(Discharge Diagnosis) - 06/22/19 Attending Physician: Lisa Aguirre NP Allergies, Adverse [...] TAKE 1 TABLET BY MOUTH EVERY DAY, [facility]/pharmacy #5119 Start Date: 01/15/19 Status: Ordered atorvastatin 40 mg oral tablet See Instructions, # 30 tablet, Refills 5 Tot. Refills 5, TAKE 1 TABLET BY MOUTH EVERY DAY, [facility]/pharmacy #9776 Start Date: 01/22/19 Status: Ordered atropine-diphenoxylate 0.025 [...] dryness(Confirmed) Active 1colo 2014; repeat 2020; repeat 2017 Diagnosis Diagnosis Type Effective Dates Health Status Clinical Service Informant Conjunctivitis of left eye Discharge Diagnosis 06/22/19 Vital Signs Most recent to oldest [Reference Range]: 1 Height 158 cm (06/22/19 9:24 AM) Weight 87.6 kg (06/22/19 9:24 AM) Oxygen Saturation [94-100 %] 97 % (06/22/19 9:24 AM) Pulse Rate [55-90 bpm] 86 bpm (06/22/19 9:24 AM) Body Mass Index [18.5-24.99] 35.09 *>HHI* (06/22/19 9:24 AM) Blood Pressure [90-138/55-84 mm Hg] 136/ 84mm Hg (06/22/19 9:24 AM) Respiratory Rate [16-30 br/min] 16 br/mi n (06/22/19 9:24 AM) Temperature [96.8-100.4 DegF] 98.9 DegF (06/22/19 9:24 AM) Mode of Delivery (Oxygen) Room air (06/22/19 9:24 AM) Blood pressure sites Arm, right (06/22/19 9:24 AM) Temperature Route Oral (06/22/19 9:24 AM) Weight Obtained Via Standing scale (06/22/19 9:24 AM) Social History Social History Type Response Smoking Status Never smoker entered on: 09/20/16 Sex
--- OUTSIDE RECORDS SUMMARY | 2023-11-27 20:13 | XMS_ITS | Continuity of Care Document ---
Author Organization [facility] Milo Address [address] [place] [address]- Care Team Providers Care Nike Athlete Name Role Phone Yennifer OSORIO, Dwight Dunlap Primary Care Physician [place] [facility] [place] 07/02/19 [facility] Adult [address] [place] [address]- [facility] Attending Physician: Admtr, Ar8 Allergies, Adverse Reactions, Alerts Substance Reaction Severity [...] TAKE 1 TABLET BY MOUTH EVERY DAY, [facility]/pharmacy #2339 Start Date: 01/15/19 Status: Ordered atorvastatin 40 mg oral tablet See Instructions, # 30 tablet, Refills 5 Tot. Refills 5, TAKE 1 TABLET BY MOUTH EVERY DAY, [facility]/pharmacy #5339 Start Date: 01/22/19 Status: Ordered atropine-diphenoxylate 0.025 [...] 0 Refills, Maintenance, 05/22/19 15:35:00 EST, Capsule, [facility]/pharmacy #2339, generic brand only, 158, cm, 04/01/19 [...] vaginal dryness(Confirmed) Active 1colo 2014; repeat 2020 32838; repeat 2017 Social History Social History Type Response Smoking Status Never smoker entered on: 09/20/16 Sex
--- OUTSIDE RECORDS SUMMARY | 2023-11-27 20:13 | XMS_ITS | Continuity of Care Document ---
Author Organization [facility] ter Address [address] [place] [address]- Care Team Providers Care Truck Rental Service Attendant Name Role Phone Yennifer OSORIO, Dwight Dunlap Primary Care Physician Encounter [facility] [place] Date(s): 11/06/19 - 11/07/[address] [address]- [facility] Discharge Disposition: A-D/C Home Attending Physician: Jimy Clements MD Admitting Physician: Jimy Clements MD Referring Physician: Not on Staff, Referring [...] Replace Required Details, Route to Pharmacy Electronically, [facility]/pharmacy #7309, 158mikayla, 06/22/19 9:24:00 EST, H... Start Date: 07/13/19 Status: Ordered atorvastatin 40 mg oral tablet 1 tablet, By Mouth, Daily, # 30 tablet, 5 Refills, Maintenance, 07/23/19 14:20:00 EDT, [facility] STORE 26841, 158, mikayla, 06/22/19 9:24:00 EST, Height, 81.6, [...] 11/04/19 11:42:00 EDT, Route to Pharmacy Electronically, [facility]/pharmacy #2339, 158, cm, 11/04/19 11:05:00 EDT, Height Start Date: 11/04/19 Status: Ordered fenofibrate 54 mg oral tablet 1 tablet, By Mouth, Daily, # 30 tablet, 5 Refills, Maintenance, 07/23/19 14:20:00 EDT, [facility] STORE 95505, 158, cm, 06/22/19 9:24:00 EST, Height, 81.6, kg, 09/24/17 8:57:00 EDT, Dry Weight Start Date: 07/23/19 Status: Ordered fluticasone 27.5 mcg/inh nasal spray 1 sprays, Nares, Both, Daily, PRN for allergy symptoms, # 10 Gm, 1 Refills, Maintenance, 11/04/19 11:41:00 EDT, [place], [facility]/pharmacy #2339, 1 sprays Nares, Both Daily,PRN:for allergy [...] EDT, Route to Pharmacy Electronically, [facility], 158, cm, 06/22/19 9:24:00 EST, Height, 81.6,kg, 09/24/17 8:57:00 EDT, Dry Weight Start Date: 07/23/19 Status: Ordered pregabalin 150 mg oral capsule [...] vaginal dryness(Confirmed) Active 1colo 2014; repeat 2020 57258; repeat 2017 Vital Signs Most recent to oldest [Reference Range]: 1 2 3 Oxygen Saturation [94-100 %] 96 % (11/07/19 6:10 AM) 96 % (11/07/19 5:04 AM) 95 % (11/07/19 1:40 AM) Pulse Rate [55-90 bpm] 73 bpm (11/07/19 6:10 AM) 75 bpm (11/07/19 5:04 AM) 70 bpm (11/07/19 1:40 AM) Blood Pressure [90-138/55-84 mm Hg] 119/64mm Hg (11/07/19 6:10 AM) 124/73mm Hg (11/07/19 5:04 AM) 143/82mm Hg *H* (11/07/19 1:40 AM) Respiratory Rate [16-30 br/min] 16 br/min (11/07/19 6:10 AM) 14 br/min *L* (11/07/19 5:09 AM) 18 br/min (11/07/19 5:04 AM) Temperature [96.8-100.4 DegF] 98.1 DegF (11/07/19 6:10 AM) 98.4 DegF (11/06/19 11:51 PM) Mode of Delivery (Oxygen) Room air (11/07/19 6:10 AM) Room air (11/07/19 5:04 AM) Room air (11/06/19 11:51 PM) Blood pressure sites Arm, right (11/06/19 11:51 PM) Temperature Route Oral (11/06/19 11:51 PM) Social History Social History Type Response Smoking Status Never smoker entered on: 09/20/16 Sex
--- OUTSIDE RECORDS SUMMARY | 2023-11-27 20:13 | XMS_ITS | Continuity of Care Document ---
Author Organization [facility] [place] Address [address] [place] [address]- Care Team Providers Care Patrol Officer Name Role Phone Dwight De Oliveira MD Primary Care Physician [phone] Encounter [facility] Date(s): 07/24/23 - 08/23/23 [facility] [address] [address] Attending Physician: Calderon Rodrigez Admitting Physician: AdmtrCalderon Referring Physician: Admtr, Ar8 Allergies, Adverse Reactions, Alerts No Known Allergies Immunizations Given and Recorded Vaccine Date Status Refusal Reason SARS-CoV-2 (COVID-19) Ad26 vaccine 1 10/27/20 Give n Influenza Virus Vaccine (oldterm) 2 01/31/17 Given tetanus/diphtheria/pertussis, acel(Tdap) 09/20/16 Given tetanus-diphtheria toxoids (Td) 3 01/20/05 Given 1Result Comment: [id number] 2Admin Note: declined 3Admin Note: declined Medications atorvastatin 40 mg oral tablet 1 tablet, By Mouth, Daily, # 90 tablet, 1 Refills, Maintenance, 05/13/23 9:00:00 [facility] #73235, 157, cm, 10/17/22 7:48:00 EDT, Height Start Date: 05/13/23 Status: Ordered Clobetasol (Eqv-Temovate) 0.05% topical cream See Instructions, APPLY TO AFFECTED AREA TWICE A DAY, # 60 Gm, 0 Refills, Maintenance, 06/22/22 11:25:00 [facility] ST[facility] 85603, 30, APPLY TO AFFECTED AREA TWICE A DAY, 157, cm, 02/15/22 10:32:00 EDT, Height Start Date: 06/22/22 Status: Ordered fenofibrate 54 mg oral tablet 1 tablet, By Mouth, Daily, # 90 tablet, 1 Refills, Maintenance, 05/13/23 9:00:00 EST, [facility] #88601, 157, cm, 10/17/22 7:48:00 EDT, Height Start Date: 05/13/23 Status: Ordered lisinopril 20 mg oral tablet 1, tablet, By Mouth, Daily, # 90 tablet, Refills 1, Maintenance, 08/08/23 10:38:00 EDT, [facility] to [facility]ically, [facility], 157, cm, 06/21/23 8:23:00 EST, Height Start Date: 08/08/23 Status: Ordered mercaptopurine 50 mg oral tablet 2 tablet = 100 mg, By Mouth, Daily in AM, 0 Refills, Maintenance, 01/06/20 11:07:00 EDT Start Date: 01/06/20 Status: Ordered pregabalin 150 mg oral capsule 1 capsule = 150 mg, By Mouth, 2 times a day, # 60 capsule, 5 Refills, Maintenance, 07/09/23 15:47:00 EST, Capsule, [id number], generic brand only, 157, cm, 06/21/23 8:23:00 [...] EDT, Route to Pharmacy Electronically, [facility]/pharmacy #1862, Partial fill upon patient request if the [...] Care team information Care Team Personnel Name: Yennifer OSORIO, Dwight Dunlap Position: [facility] Physician - Primary Care Member Role: PCP Address: Address: [address] [place] [address]- Name: Anette Boyce RN Position: [facility] Nurse Member Role: Primary Care Nurse Name: Afia Hughes RN Position: [facility] RN Member Role: Primary Care Nurse Name: Tomer Merino RN Position: [facility] RN Member Role: Primary Care Nurse Care Team Related Persons Name: ROSE CRENSHAW Address: [address] [address]
--- OUTSIDE RECORDS SUMMARY | 2023-11-27 20:13 | XMS_ITS | Continuity of Care Document ---
Author Organization [facility] Address [address] [place] [address] [address] [place] [address]- Care Team Providers Care Fermentation Scientist Name Role Phone Yennifer OSORIO, Dwight Dunlap Primary Care Physician [place] [facility] [place] Date(s): 01/06/20 - 01/13/[address] [place] [address]- [facility] Attending Physician: Pietro Bueno MD Referring Physician: Dwight De Oliveira MD [...] Required Details, Route to Pharmacy Electronically, [facility]/pharmacy #2339, 158, cm, 12/31/19 4:02:00 EDT, He... Start Date: 01/12/20 Status: Ordered atorvastatin 40 mg oral tablet 1 tablet, By Mouth, Daily, # 30 tablet, 5 Refills, Maintenance, 01/13/20 15:56:00 EDT, [facility]/pharmacy#2339, 157.48, cm, 01/13/20 14:36:00 EDT, Height, 77.27, kg, 01/12/20 16:16:00 EDT, Dry Weight Start Date: 01/13/20 Status: Ordered fenofibrate 54 mg oral tablet 1 tablet, By Mouth, Daily, # 30 tablet, 5 Refills, Maintenance, 07/23/19 14:20:00 EDT, [facility] ST[facility] 15729, 158, cm, 06/22/19 9:24:00 EST, Height, 81.6, kg, 09/24/17 8:57:00 EDT, Dry Weight Start Date: 07/23/19 Status: Ordered Flagyl 500 mg oral tablet See Instructions, take 2 tabs with 2 tabs neomycin at 9:00PM and again at 11:00PM day before procedure., # 4 each, 0 Refills, Maintenance, 01/08/20 14:41:00 EDT, [facility]/pharmacy #2339, 158, cm, :02:00 EDT, Height, 85, kg, 12/29/19 16:02:00 EDT... Start Date: 01/08/20 Status: Ordered Humira See Instructions, 40 mg Subcutaneous Infusion Once every 15 days, 0 Refills, Maintenance, 06/20/12 10:48:17 EST Start Date: 06/20/12 Status: Ordered lisinopril 20 mg oral tablet 1, tablet, By Mouth, Daily, # 30 tablet, Refills 5, Tot. Refills 0, Maintenance, 07/23/19 14:20:00 EDT, Route to Pharmacy Electronically, [facility] ST[facility] 10983, 158, cm, 06/22/19 9:24:00 EST, Height, 81.6,kg, 09/24/17 8:57:00 EDT, Dry Weight Start Date: 07/23/19 Status: Ordered mercaptopurine 50 mg oral tablet [...] vaginal dryness(Confirmed) Active 1colo 2014; repeat 2020 [address]; repeat 2017 Social History Social History Type Response Smoking Status Never smoker entered on: 09/20/16 Sex
--- OUTSIDE RECORDS SUMMARY | 2023-11-27 20:13 | XMS_ITS | Continuity of Care Document ---
Author Organization [facility] Milo lt Address [address] [place] [address]- Care Team Providers Care Food Crops Farm Hand Name Role Phone Dwight De Oliveira MD Primary Care Physician Encounter [facility] Date(s): 10/30/21 - 11/29/21 [facility] Adult [address] [place] [address]- Attending Physician: Admtr, Ar8 Allergies, Adverse Reactions, [...] 12/30/19 Not Given Patient Refuses 1Result Comment: [id number] 2Admin Note: declined 3Admin Note: declined Medications amLODIPine 5 mg oral tablet 1 tablet, By Mouth, Daily, # 30 tablet, 5 Refills, [email or web address], 157, cm, 06/07/21 8:43:00 EST, Height, 80.1, kg, 01/22/20 14:40:00 EDT, Dry Weight Start Date: 06/18/21 Status: Ordered atorvastatin 40 mg oral tablet 1 tablet, By Mouth, Daily, # 30 tablet, 5 Refills, [email or web address] 04987, 157, cm, 06/07/21 8:43:00 EST, Height, 80.1, kg, 01/22/20 14:40:00 EDT, Dry Weight Start Date: 08/07/21 Status: Ordered clobetasol 0.05% topical cream 1 application, Topically, 2 times a day, # 60 Gm, 0 Refills, Maintenance, 08/30/21 16:43:00 EDT, Cream, [facility]/pharmacy #2339, Partial fill upon patient request if the prescription is for a schedule II opioid drug., 1 application Topically 2 times a day,... Start Date: 08/30/21 Status: Ordered fenofibrate 54 mg oral tablet 1 tablet, By Mouth, Daily, # 30 tablet, 5 Refills, [facility] STORE 91234, 157, cm, 06/07/21 8:43:00 EST, Height, 80.1, [...] Replace Required Details, Route to Pharmacy Electronically, [facility]/pharmacy #2339, 157, cm, 10/27/20 10:35:00 ED... Start Date: 02/07/21 Status: Ordered mercaptopurine 50 mg oral tablet 2 tablet = 100 mg, By Mouth, Daily in AM, 0 Refills, Maintenance, 01/06/20 11:07:00 EDT Start Date: 01/06/20 Status: Ordered pregabalin 150 mg oral capsule 1 capsule = 150 mg, By Mouth, 2 times a day, # 60 capsule, 5 Refills, Maintenance, 10/30/21 8:55:00EDT, Capsule, [facility]/pharmacy #0693, generic brand only, 157, cm, [...] gene positive(Confirmed) Active Fibromyalgia syndrome(Confirmed) 10/17/12 Active Hand eczema(Confirmed) Active Hip pain(Confirmed) Active History of colonoscopy(Confirmed) 2, 3 Active Hypercholesterolemia(Confirmed) 06/23/09 Active Hypertension(Confirmed) 04/18/10 Active Obese class I(Confirmed) Active Palpitations(Confirmed) Active RLS (restless legs syndrome)(Confirmed) Active Menopausal vaginal dryness(Confirmed) Active 1colo 2014; repeat 2020 48174; repeat 2017 Social History Social History Type Response Smoking Status Never smoker entered on: 09/20/16 Sex
--- OUTSIDE RECORDS SUMMARY | 2023-11-27 20:13 | XMS_ITS | Continuity of Care Document ---
Author Organization [facility] [place] Milo lt Address [address] [place] [address]- Care Team Providers Care Cloth Finisher Name Role Phone Dwight De Oliveira MD Primary Care Physician [phone] [place] [facility] [place] 08/31/22 [facility] [place] Adult [address] [place] [address]- Allergies, Adverse Reactions, Alerts No Known Allergies [...] 12/30/19 Not Given Patient Refuses 1Result Comment: [id number] 2Admin Note: declined 3Admin Note: declined Medications atorvastatin 40 mg oral tablet 1 tablet, By Mouth, Daily, # 90 tablet, 0 Refills, Maintenance, 08/01/22 15:19:00 EDT, [facility] #00031, 157, cm, 02/15/22 10:32:00 EDT, Height Start Date: 08/01/22 Status: Ordered Clobetasol (Eqv-Temovate) 0.05% topical cream See Instructions, APPLY TO AFFECTED AREA TWICE A DAY, # 60 Gm, 0 Refills, Maintenance, 06/22/22 11:25:00 EST, [facility] 14209, 30, APPLY TO AFFECTED AREA TWICE A DAY, 157, cm, 02/15/22 10:32:00 EDT, Height Start Date: 06/22/22 Status: Ordered fenofibrate 54 mg oral tablet 1 tablet, By Mouth, Daily, # 90 tablet, 0 Refills, Maintenance, 08/01/22 15:19:00 EDT, [facility] ST[facility] #01186, 157, cm, 02/15/22 10:32:00 EDT, Height Start Date: 08/01/22 Status: Ordered Humira See Instructions, 40 mg Subcutaneous Infusion Once every 15 days, 0 Refills, Maintenance, 06/20/12 10:48:17 EST Start Date: 06/20/12 Status: Ordered lisinopril 20 mg oral tablet 1, tablet, By Mouth, Daily, # 90 tablet, Refills 0, Tot. Refills 0, Maintenance, 08/01/22 15:19:00 EDT, Route to Pharmacy Electronically, [id number], 157, cm, 02/15/22 10:32:00 EDT, Height Start Date: 08/01/22 Status: Ordered mercaptopurine 50 mg oral tablet 2 tablet = 100 mg, By Mouth, Daily in AM, 0 Refills, Maintenance, 01/06/20 11:07:00 EDT Start Date: 01/06/20 Status: Ordered pregabalin 150 mg oral capsule 1 capsule = 150 mg, By Mouth, 2 times a day, # 60 capsule, 5 Refills, Maintenance, 08/02/22 8:50:00EDT, Capsule, [facility] #08482, generic brand only, 157, cm, 02/15/22 10:32:00 [...] 12/06/21 9:21:00 EDT, Route to Pharmacy Electronically, [facility]/pharmacy #[id number], Partial fill upon patient request if the [...] Team Personnel Name: Anderson Best RN Position: [facility] RN Member Role: Primary Care Nurse Name: Dwight De Oliveira MD Position: [facility] Primary Care Physician Member Role: PCP Address: Address: [address] [place] [address]- Name: Anette Boyce RN Position: S RN Member Role: Primary Care Nurse Name: Afia Hughes RN Position: S RN Member Role: Primary Care Nurse Name: Tomer Merino RN Position: S RN Member Role: Primary Care Nurse Care Team Related Persons Name: ROSE CRENSHAW Address: [address] [address]
--- OUTSIDE RECORDS SUMMARY | 2023-11-27 20:13 | XMS_ITS | Continuity of Care Document ---
Author Organization [facility] ter Address [address] [place] [address]- Care Team Providers Care Retail Link Analyst Name Role Phone Dwight De Oliveira MD Primary Care Physician Encounter [facility] Date(s): 06/21/23 - 06/21/[address] [address] Attending Physician: Dwight De Oliveira MD Allergies, Adverse Reactions, Alerts No Known Allergies Immunizations Given and Recorded Vaccine Date Status Refusal Reason SARS-CoV-2 (COVID-19) Ad26 vaccine 1 10/27/20 Give n Influenza Virus Vaccine (oldterm) 2 01/31/17 Given tetanus/diphtheria/pertussis, acel(Tdap) 09/20/16 Given tetanus-diphtheria toxoids (Td) 3 01/20/05 Given 1Result Comment: [id number] 2Admin Note: declined 3Admin Note: declined Medications atorvastatin 40 mg oral tablet 1 tablet, By Mouth, Daily, # 90 tablet, 1 Refills, Maintenance, 05/13/23 9:00:00 [facility] #[id number], 157, cm, 10/17/22 7:48:00 EDT, Height Start Date: 05/13/23 Status: Ordered Clobetasol (Eqv-Temovate) 0.05% topical cream See Instructions, APPLY TO AFFECTED AREA TWICE A DAY, # 60 Gm, 0 Refills, Maintenance, 06/22/22 11:25:00 [facility] 64063, 30, APPLY TO AFFECTED AREA TWICE A DAY, 157, cm, 02/15/22 10:32:00 EDT, Height Start Date: 06/22/22 Status: Ordered fenofibrate 54 mg oral tablet 1 tablet, By Mouth, Daily, # 90 tablet, 1 Refills, Maintenance, 05/13/23 9:00:00 EST, [facility] #[id number], 157, cm, 10/17/22 7:48:00 EDT, Height Start Date: 05/13/23 Status: Ordered lisinopril 20 mg oral tablet 1, tablet, By Mouth, Daily, # 90 tablet, Refills 1, Tot. Refills 1, Maintenance, 02/13/23 8:15:00 EDT, Route to Pharmacy Electronically, [facility] #[id number], 157, cm, 10/17/22 7:48:00 EDT, Height Start Date: 02/13/23 Status: Ordered mercaptopurine 50 mg oral tablet 2 tablet = 100 mg, By Mouth, Daily in AM, 0 Refills, Maintenance, 01/06/20 11:07:00 EDT Start Date: 01/06/20 Status: Ordered pregabalin 150 mg oral capsule 1 capsule = 150 mg, By Mouth, 2 times a day, # 60 capsule, 5 Refills, Maintenance, 12/31/22 10:09:00 EDT, Capsule, [facility] #[id number], generic brand only, 157, cm, 10/17/22 7:48:00 [...] 12/06/21 9:21:00 EDT, Route to Pharmacy Electronically, [facility]/pharmacy #[id number], Partial fill upon patient request if the [...] Personnel Name: Yennifer OSORIO, Dwight Dunlap Position: [facility] Physician - Primary Care Member Role: PCP Address: Address: [address] [place] [address]- Name: Anette Boyce RN Position: [facility] [place] Nurse Member Role: Primary Care Nurse Name: Afia Hughes RN Position: [facility] RN Member Role: Primary Care Nurse Name: Tomer Merino RN Position: [facility] RN Member Role: Primary Care Nurse Care Team Related Persons Name: ROSE CRENSHAW Address: [address] [address]
--- OUTSIDE RECORDS SUMMARY | 2023-11-27 20:13 | XMS_ITS | Continuity of Care Document ---
Author Organization [facility] Milo lt Address [address] [place] [address]- Care Team Providers Care Engineering And Scientific Programmer Name Role Phone Dwight De Oliveira MD Primary Care Physician [phone] [place] [facility] [place]): [place] 01/20/20 [facility] Adult [address] [place] [address] [facility] Encounter Diagnosis CC (Crohn's colitis)(Discharge Diagnosis) - 01/13/20 Attending Physician: Dwight De Oliveira MD Allergies, [...] Replace Required Details, Route to Pharmacy Electronically, [facility]/pharmacy #[id number], 158, cm, 12/31/19 4:02:00 EDT, Erma. Start Date: 01/12/20 Status: Ordered atorvastatin 40 mg oral tablet 1 tablet, By Mouth, Daily, # 30 tablet, 5 Refills, Maintenance, 01/13/20 15:56:00 EDT, [facility]/pharmacy#4010, 157.48, cm, 01/13/20 14:36:00 EDT, Height, 77.27, kg, 01/12/20 16:16:00 EDT, Dry Weight Start Date: 01/13/20 Status: Ordered fenofibrate 54 mg oral tablet 1 tablet, By Mouth, Daily, # 30 tablet, 5 Refills, Maintenance, 07/23/19 14:20:00 EDT, [facility] STORE 84077, 158, cm, 06/22/19 9:24:00 EST, Height, 81.6, kg, 09/24/17 8:57:00 EDT, Dry Weight Start Date: 07/23/19 Status: Ordered Flagyl 500 mg oral tablet See Instructions, take 2 tabs with 2 tabs neomycin at 9:00PM and again at 11:00PM day before procedure., # 4 each, 0 Refills, Maintenance, 01/08/20 14:41:00 EDT, [facility]/pharmacy #2339, 158, cm, 12/30/204:02:00 EDT, Height, 85, kg, 12/29/19 16:02:00 EDT... Start Date: 01/08/20 Status: Ordered Humira See Instructions, 40 mg Subcutaneous Infusion Once every 15 days, 0 Refills, Maintenance, 06/20/12 10:48:17 EST Start Date: 06/20/12 Status: Ordered lisinopril 20 mg oral tablet 1, tablet, By Mouth, Daily, # 30 tablet, Refills 5, Tot. Refills 0, Maintenance, 07/23/19 14:20:00 EDT, Route to Pharmacy Electronically, [facility] STORE 18488, 158, cm, 06/22/19 9:24:00 EST, Height, 81.6,kg, [...] Active 1colo 2014; repeat 202015; repeat 2017 Diagnosis Diagnosis Type Effective Dates Health Status Cl inical Service Informant CC (Crohn's colitis) Discharge Diagnosis 01/13/20 Vital Signs Most recent to oldest [Reference Range]: 1 Height 157.48 cm (01/13/20 2:36 PM) Weight 80.6 kg (01/13/20 2:36 PM) Oxygen Saturation [94-100 %] 98 % (01/13/20 2:36 PM) Pulse Rate [55-90 bpm] 88 bpm (01/13/20 2:36 PM) Body Mass Index [18.5-24.99] 32.5 *>HHI* (01/13/20 2:36 PM) Blood Pressure [90-138/55-84 mm Hg] 106/ 70mm Hg (01/13/20 2:36 PM) Mode of Delivery (Oxygen) Room air (01/13/20 2:36 PM) Blood pressure sites Arm, left (01/13/20 2:36 PM) Weight Obtained Via Standing scale (01/13/20 2:36 PM) Social History Social History Type Response Smoking Status Never smoker entered on: 09/20/16 Sex
--- OUTSIDE RECORDS SUMMARY | 2023-11-27 20:13 | XMS_ITS | Continuity of Care Document ---
Author Organization [facility] Milo lt Address [address] [place] [address]- Care Team Providers Care Object Oriented Programmer Name Role Phone Yennifer OSORIO, Dwight Dunlap Primary Care Physician Encounter [facility] [place] Date(s): 04/21/21 - 04/28/21 [facility] Adult [address] [place] [address]- Attending Physician: Dianne Chavarria NP Allergies, Adverse Reactions, Alerts Substance Reaction [...] 12/30/19 Not Given Patient Refuses 1Result Comment: [id number] 2Admin Note: declined 3Admin Note: declined Medications amLODIPine 5 mg oral tablet See Instructions, TAKE 1 TABLET BY MOUTH EVERY DAY, # 30 tablet, Refills 5, Tot. Refills 5, Soft Stop, 12/21/20 9:23:00 EDT, Instructions Replace Required Details, Route to Pharmacy Electronically, [facility]/pharmacy #[id number], 157, cm, 10/27/20 10:35:00 EDT, H... Start Date: 12/21/20 Status: Ordered atorvastatin 40 mg oral tablet See Instructions, TAKE 1 TABLET BY MOUTH EVERY DAY, # 30 tablet, 5 Refills, Maintenance, 02/14/21 8:04:00 EDT, [facility]/pharmacy #2339, 157, cm, 10/27/20 10:35:00 EDT, Height, 80.1, kg, 01/22/20 14:40:00 EDT, Dry Weight Start Date: 02/14/21 Status: Ordered fenofibrate 54 mg oral tablet See Instructions, TAKE 1 TABLET BY MOUTH EVERY DAY, # 30 tablet, 5 Refills, Maintenance, 02/14/21 8:04:00 EDT, [facility]acy #2339, 157, cm, 10/27/20 10:35:00 EDT, Height, [...] to Pharmacy Electronically, [facility]/pharmacy #2339, 157, cm, 10/27/20 10:35:00 ED... Start Date: 02/07/21 Status: Ordered mercaptopurine 50 mg oral tablet 2 tablet = 100 mg, By Mouth, Daily in AM, 0 Refills, Maintenance, 01/06/20 11:07:00 EDT Start Date: 01/06/20 Status: Ordered pregabalin 150 mg oral capsule 1 capsule = 150 mg, By Mouth, 2 times a day, # 60 capsule, 5 Refills, Maintenance, 12/02/20 8:32:00EDT, Capsule, [facility]/pharmacy #0693, generic brand only, 157, cm, [...] 17:39:00 EDT, Aerosol, Route to Pharmacy Electronically, [id number], [facility]/pharmacy #2339, 157, cm, 09/01/20 17:23:00 EDT, [...] vaginal dryness(Confirmed) Active 1colo 2014; repeat 2020 50204; repeat 2017 Social History Social History Type Response Smoking Status Never smoker entered on: 09/20/16 Sex
--- OUTSIDE RECORDS SUMMARY | 2023-11-27 20:13 | XMS_ITS | Continuity of Care Document ---
Author Organization [facility] Milo lt Address [address] [place] [address]- Care Team Providers Care Coach Professional Athletes Name Role Phone Dwight De Oliveira MD Primary Care Physician [place] [facility] [place] 09/05/20 [facility] Adult [address] [place] [address]- Attending Physician: Dwight De Oliveira MD Allergies, [...] Details, Route to Pharmacy Electronically, [facility]/pharmacy #[id number], 157, cm, 05/03/20 6:52:00 EST, He... Start Date: 07/19/20 Status: Ordered atorvastatin 40 mg oral tablet 1 tablet, By Mouth, Daily, # 30 tablet, 5 Refills, Maintenance, 08/02/20 15:10:00 EDT, [facility]/pharmacy#2339, 157, cm, 05/03/20 6:52:00 EST, Height, 80.1, kg, 01/22/20 14:40:00 EDT, Dry Weight Start Date: 08/02/20 Status: Ordered fenofibrate 54 mg oral tablet 1 tablet, By Mouth, Daily, # 30 tablet, 5 Refills, Maintenance, 08/02/20 15:13:00 EDT, [facility]/pharmacy#2339, 157, cm, 05/03/20 6:52:00 EST, Height, 80.1, kg, 01/22/20 14:40:00 EDT, Dry Weight Start Date: 08/02/20 Status: Ordered Flagyl 500 mg oral tablet 1 tablet = 500 mg, By Mouth, 3 times a day, # 30 tablet, 0 Refills, Maintenance, 01/26/20 8:16:00 EDT, [facility], 157, cm, 01/26/20 8:00:00 [...] 08/02/20 15:13:00 EDT, Route to Pharmacy Electronically, [facility]/pharmacy #[id number], 157, cm, 05/03/20 6:52:00 EST, Height, [...] 0 Refills, Maintenance, 01/08/20 14:41:00 EDT, [facility]/pharmacy #2339, 158, cm, 12/31/19 4:02:00 EDT, Height, 85, kg, 12/29/19 16:02:0... Start Date: 01/08/20 Status: Ordered pregabalin 150 mg oral capsule 1 capsule = 150 mg, By Mouth, 2 times a day, for 30 days, # 60 capsule, 5 Refills, Hard Stop 11/30/20 14:28:00 EDT, 06/03/20 14:28:00 EST, Capsule, [facility]/pharmacy #2339, generic brand only, 157, cm, 05/03/20 6:52:00 EST, Height, 80.1, kg, 01/22/20 14:40... Start Date: 06/03/20 Stop Date: 11/30/20 Status: Ordered pregabalin 150 mg oral capsule 1 capsule = 150 mg, By Mouth, 2 times a day, # 60 capsule, 5 Refills, Maintenance, 06/03/20 16:22:00 EST, Capsule, [facility]/pharmacy #0693, generic brand only, 157, cm, 05/03/20 [...] 17:39:00 EDT, Aerosol, Route to Pharmacy Electronically, [id number], [facility]/pharmacy #2339, 157, cm, 09/01/20 17:23:00 EDT, Hei... Start Date: 09/01/20 Stop Date: 09/08/20 Status: Ordered Tessalon Perles 100 mg oral capsule 1 capsule = 100 mg, By Mouth, 3 times a day, for 7 days, do not crush or chew for cough, # 21 capsule, 0 Refills, Acute 09/08/20 17:40:00 EDT, 09/01/20 17:40:00 EDT, Capsule, [facility], Partial fill upon patient request if the prescription i... Start Date: 09/01/20 Stop Date: 09/08/20 Status: [...] vaginal dryness(Confirmed) Active 1colo 2014; repeat 2020 00003; repeat 2017 Social History Social History Type Response Smoking Status Never smoker entered on: 09/20/16 Sex
--- OUTSIDE RECORDS SUMMARY | 2023-11-27 20:13 | XMS_ITS | Continuity of Care Document ---
Author Organization [facility] Milo lt Address [address] [place] [address]- Care Team Providers Care [employer]iance Internship Name Role Phone Dwight De Oliveira MD Primary Care Physician Encounter [facility] [place] Date(s): 02/20/22 - 03/22/22 [facility] Adult [address] [place] [address]- Allergies, Adverse Reactions, Alerts No Known Allergies [...] 12/30/19 Not Given Patient Refuses 1Result Comment: [id number] 2Admin Note: declined 3Admin Note: declined Medications atorvastatin 40 mg oral tablet 1 tablet, By Mouth, Daily, # 30 tablet, 5 Refills, Maintenance, 02/15/22 12:10:00 EDT, [facility]/pharmacy#2339, 157, cm, 02/15/22 10:32:00 EDT, Height Start Date: 02/15/22 Status: Ordered clobetasol 0.05% topical cream See Instructions, APPLY TO AFFECTED AREA TWICE A DAY, # 60 Gm, 0 Refills, Maintenance, 02/05/22 6:39:00 EDT, [facility], 60, APPLY TO AFFECTED AREA TWICE A DAY, 157, cm, 12/06/21 8:57:00 EDT, Height Start Date: 02/05/22 Status: Ordered fenofibrate 54 mg oral tablet 1 tablet, By Mouth, Daily, # 30 tablet, 5 Refills, Maintenance, 02/02/22 6:48:00 EDT, [facility] 70820, 157, cm, 12/06/21 8:57:00 EDT, Height Start Date: 02/02/22 Status: Ordered Humira See Instructions, 40 mg Subcutaneous Infusion Once every 15 days, 0 Refills, Maintenance, 06/20/12 10:48:17 EST Start Date: 06/20/12 Status: Ordered lisinopril 20 mg oral tablet 1, tablet, By Mouth, Daily, # 30 tablet, Refills 5, Maintenance, 02/02/22 6:49:00 EDT, Route to Pharmacy Electronically, [facility] 48629, 157, cm, 12/06/21 8:57:00 EDT, Height Start Date: 02/02/22 Status: Ordered mercaptopurine 50 mg oral tablet 2 tablet = 100 mg, By Mouth, Daily in AM, 0 Refills, Maintenance, 01/06/20 11:07:00 EDT Start Date: 01/06/20 Status: Ordered pregabalin 150 mg oral capsule 1 capsule = 150 mg, By Mouth, 2 times a day, # 60 capsule, 5 Refills, Maintenance, 10/30/21 8:55:00EDT, Capsule, [facility]/pharmacy #0693, generic brand only, 157, cm, 10/30/21 [...] 12/06/21 9:21:00 EDT, Route to Pharmacy Electronically, [facility]/pharmacy #2339, Partial fill upon patient request if [...] Active Menopausal vaginal dryness Confirmed Active 1colo 201418; repeat 2020 25223; repeat 2017 Social History Social History Type Response Smoking Status Never smoker entered on: 09/20/16 Sex Patient Care team information Care Team Personnel Name: Anderson Best RN Position: [facility] RN Member Role: Primary Care Nurse Name: Dwight De Oliveira MD Position: [facility] Primary Care Physician Member Role: PCP Address: Address: [address] [place] [address]- Name: Anette Boyce RN Position: S RN Member Role: Primary Care Nurse Name: Afia Hughes RN Position: S RN Member Role: Primary Care Nurse Name: Tomer Merino RN Position: S RN Member Role: Primary Care Nurse Care Team Related Persons Name: APRIL CRENSHAWIC Address: [address] [address]
--- OUTSIDE RECORDS SUMMARY | 2023-11-27 20:13 | XMS_ITS | Continuity of Care Document ---
Author Organization [facility] Milo lt Address [address] [place] [address]- Care Team Providers Care Caramel Maker Name Role Phone Dwight De Oliveira MD Primary Care Physician [phone] Encounter [facility] [place] Date(s): 05/30/21 - 06/06/21 [facility] Adult [address] [place] [address]- Encounter Diagnosis Fibromyalgia syndrome(Discharge Diagnosis) - 05/30/21 Attending Physician: Dianne Chavarria NP Referring Physician: Dwight De Oliveira MD Allergies, [...] 12/30/19 Not Given Patient Refuses 1Result Comment: [id number] 2Admin Note: declined 3Admin Note: declined Medications amLODIPine 5 mg oral tablet See Instructions, TAKE 1 TABLET BY MOUTH EVERY DAY, # 30 tablet, Refills 5, Tot. Refills 5, Soft Stop, 12/21/20 9:23:00 EDT, Instructions Replace Required Details, Route to Pharmacy Electronically, [facility]/pharmacy #3119, 157, cm, 10/27/20 10:35:00 EDT, H... Start Date: 12/21/20 Status: Ordered atorvastatin 40 mg oral tablet See Instructions, TAKE 1 TABLET BY MOUTH EVERY DAY, # 30 tablet, 5 Refills, Maintenance, 02/14/21 8:04:00 EDT, [facility]/pharmacy #2339, 157, cm, 10/27/20 10:35:00 EDT, [...] Replace Required Details, Route to Pharmacy Electronically, [facility]/pharmacy #2339, 157, cm, 10/27/20 10:35:00 ED... [...] 5 Refills, Maintenance, 05/31/21 11:19:00 EST, Capsule, [facility]/pharmacy #0693, generic brand only, [...] 17:39:00 EDT, Aerosol, Route to Pharmacy Electronically, [id number], [facility], 157, cm, 09/01/20 17:23:00 EDT, [...] vaginal dryness(Confirmed) Active 1colo 2014; repeat 2020 62976; repeat 2017 Diagnosis Diagnosis Type Effective Dates Health Status Clinical Service Informant Fibromyalgia syndrome Discharge Diagnosis 05/30/21 Vital Signs Most recent to oldest [Reference Range]: 1 Height 157 cm (05/30/21 10:20 AM) Weight 80.5 kg (05/30/21 10:20 AM) Oxygen Saturation [94-100 %] 98 % (05/30/21 10:20 AM) Pulse Rate [55-90 bpm] 71 bpm (05/30/21 10:20 AM) Body Mass Index [18.5-24.99] 32.66 *>HHI* (05/30/21 10:20 AM) Blood Pressure [90-138/55-84 mm Hg] 132/ 82mm Hg (05/30/21 10:20 AM) Respiratory Rate [16-30 br/min] 16 br/mi n (05/30/21 10:20 AM) Mode of Delivery (Oxygen) Room air (05/30/21 10:20 AM) Blood pressure sites Arm, left (05/30/21 10:20 AM) Weight Obtained Via Standing scale (05/30/21 10:20 AM) Social History Social History Type Response Smoking Status Never smoker entered on: 09/20/16 Sex
--- OUTSIDE RECORDS SUMMARY | 2023-11-27 20:13 | XMS_ITS | Continuity of Care Document ---
Author Organization [facility] Milo Address [address] [place] [address]- Care Team Providers Care Operations Research Engineer Name Role Phone Dwight De Oliveira MD Primary Care Physician [phone] [facility] [place] Date(s): 06/03/19 - 06/10/19 [facility] Adult [address] [place] [address]- [place] Encounter Diagnosis BMI 33.0-33.9,adult(Discharge Diagnosis) - 06/03/19 CC (Crohn's colitis)(Discharge Diagnosis) - 06/03/19 Cancer of anal canal(Discharge Diagnosis) - 06/03/19 Fibromyalgia syndrome(Discharge Diagnosis) - 06/03/19 Hypercholesterolemia(Discharge Diagnosis) - 06/03/19 Hypertension(Discharge Diagnosis) - 06/03/19 Attending Physician: Dwight De Oliveira MD Allergies, Adverse Reactions, Alerts Substance Reaction Severity Status NKA Active Immunizations Given and Recorded Vaccine Date Status Refusal Reason Influenza Virus Vaccine (oldterm) 1 01/31/17 Given tetanus/diphtheria/pertussis, acel(Tdap) 09/20/16 Given tetanus-diphtheria toxoids (Td) 2 01/20/05 Given 1Admin Note: declined 2Admin Note: declined Medications amLODIPine 5 mg oral tablet See Instructions, # 30 tablet, Refills 5 Tot. Refills 5, TAKE 1 TABLET BY MOUTH EVERY DAY, [facility]/pharmacy #[id number] Start Date: 01/15/19 Status: Ordered atorvastatin 40 mg oral tablet See Instructions, # 30 tablet, Refills 5 Tot. Refills 5, TAKE 1 TABLET BY MOUTH EVERY DAY, [facility]/pharmacy #0687 Start Date: 01/22/19 Status: Ordered atropine-diphenoxylate 0.025 [...] TAKE 1 TABLET BY MOUTH EVERY DAY, [facility]/pharmacy #2339 Start Date: 01/15/19 Status: Ordered pregabalin [...] vaginal dryness(Confirmed) Active 1colo 2014; repeat 2020 95058; repeat 2017 Diagnosis Diagnosis Type Effective Dates Health Status Clinical Service Informant BMI 33.0-33.9,adult Discharge Diagnosis 06/03/19 CC (Crohn's colitis) Discharge Diagnosis 06/03/19 Cancer of anal canal Discharge Diagnosis 06/03/19 Fibromyalgia syndrome Discharge Diagnosis 06/03/19 Hypercholesterolemia Discharge Diagnosis 06/03/19 Hypertension Discharge Diagnosis 06/03/19 Vital Signs Most recent to oldest [Reference Range]: 1 Height 158 cm (06/03/19 9:18 AM) Weight 87.4 kg (06/03/19 9:18 AM) Oxygen Saturation [94-100 %] 98 % (06/03/19 9:18 AM) Pulse Rate [55-90 bpm] 82 bpm (06/03/19 9:18 AM) Body Mass Index [18.5-24.99] 35.01 *>HHI* (06/03/19 9:18 AM) Blood Pressure [90-138/55-84 mm Hg] 102/ 70mm Hg (06/03/19 9:18 AM) Temperature [96.8-100.4 DegF] 98.4 DegF (06/03/19 9:18 AM) Mode of Delivery (Oxygen) Room air (06/03/19 9:18 AM) Blood pressure sites Arm, left (06/03/19 9:18 AM) Temperature Route Oral (06/03/19 9:18 AM) Weight Obtained Via Standing scale (06/03/19 9:18 AM) Social History Social History Type Response Smoking Status Never smoker entered on: 09/20/16 Sex
--- OUTSIDE RECORDS SUMMARY | 2023-11-27 20:13 | XMS_ITS | Continuity of Care Document ---
Author Organization [facility] Milo lt Address [address] [place] [address]- Care Team Providers Care Cash Register Operator Name Role Phone Dwight De Oliveira MD Primary Care Physician [phone] [place] [facility] [place] Date(s): 06/01/20 - 07/01/20 [facility] Adult [address] [place] [address]- Allergies, Adverse Reactions, Alerts Substance Reaction Severity [...] Required Details, Route to Pharmacy Electronically, [facility]/pharmacy #[id number], 158, cm, 12/31/19 4:02:00 EDT, He... Start Date: 01/12/20 Status: Ordered atorvastatin 40 mg oral tablet 1 tablet, By Mouth, Daily, # 30 tablet, 5 Refills, Maintenance, 02/05/20 11:40:00 EDT, [facility]/pharmacy#2339, 157, cm, 01/26/20 8:00:00 EDT, Height, 80.1, kg, 01/22/20 14:40:00 EDT, Dry Weight Start Date: 02/05/20 Status: Ordered fenofibrate 54 mg oral tablet 1 tablet, By Mouth, Daily, # 30 tablet, 5 Refills, Maintenance, 02/05/20 11:30:00 EDT, [facility]/pharmacy#2339, 157, cm, 01/26/20 8:00:00 EDT, Height, 80.1, kg, 01/22/20 14:40:00 EDT, Dry Weight Start Date: 02/05/20 Status: Ordered Flagyl 500 mg oral tablet 1 tablet = 500 mg, By Mouth, 3 times a day, # 30 tablet, 0 Refills, Maintenance, 01/26/20 8:16:00 EDT, [facility], 157, cm, 01/26/20 8:00:00 [...] 11:30:00 EDT, Route to Pharmacy Electronically, [facility]/pharmacy #2339, 157, cm, 01/26/20 8:00:00 [...] 0 Refills, Maintenance, 01/08/20 14:41:00 EDT, [facility]/pharmacy #2339, 158, cm, 12/31/19 4:02:00 [...]
--- OUTSIDE RECORDS SUMMARY | 2023-11-27 20:13 | XMS_ITS | Continuity of Care Document ---
Author Organization [facility] Milo lt Address [address] [place] [address]- Care Team Providers Care Net Developer With [employer] Name Role Phone Dwight De Oliveira MD Primary Care Physician [place] [facility] [place](s): 12/15/19 - 01/14/20 [facility] Adult [address] [place] [address]- [facility] Allergies, Adverse Reactions, Alerts Substance [...] Replace Required Details, Route to Pharmacy Electronically, [facility]/pharmacy #2339, 158, cm, 12/31/19 4:02:00 EDT, He... Start Date: 01/12/20 Status: Ordered atorvastatin 40 mg oral tablet 1 tablet, By Mouth, Daily, # 30 tablet, 5 Refills, Maintenance, 01/13/20 15:56:00 EDT, [facility]/pharmacy#2339, 157.48, cm, 01/13/20 14:36:00 EDT, Height, 77.27, kg, 01/12/20 16:16:00 EDT, Dry Weight Start Date: 01/13/20 Status: Ordered fenofibrate 54 mg oral tablet 1 tablet, By Mouth, Daily, # 30 tablet, 5 Refills, Maintenance, 07/23/19 14:20:00 EDT, [facility], 158, cm, 06/22/19 9:24:00 EST, Height, 81.6, kg, 09/24/17 8:57:00 EDT, Dry Weight Start Date: 07/23/19 Status: Ordered Flagyl 500 mg oral tablet See Instructions, take 2 tabs with 2 tabs neomycin at 9:00PM and again at 11:00PM day before procedure., # 4 each, 0 Refills, Maintenance, 01/08/20 14:41:00 EDT, [facility]/pharmacy #2339, 158, cm, :02:00 EDT, Height, [...] EDT, Route to Pharmacy Electronically, [facility], 158, cm, 06/22/19 9:24:00 EST, Height, 81.6,kg, [...] vaginal dryness(Confirmed) Active 1colo 2014; repeat 2020 11593; repeat 2017 Social History Social History Type Response Smoking Status Never smoker entered on: 09/20/16 Sex
--- OUTSIDE RECORDS SUMMARY | 2023-11-27 20:13 | XMS_ITS | Continuity of Care Document ---
Author Organization [facility] Milo lt Address [address] [place] [address]- Care Team Providers Care Hand Brim Ironer Name Role Phone Dwight De Oliveira MD Primary Care Physician [place] [facility] [place]07[place] 06/14/21 [facility] Adult [address] [place] [address]- Attending Physician: Dwight De Oliveira MD Allergies, [...] 12/30/19 Not Given Patient Refuses 1Result Comment: [id number] 2Admin Note: declined 3Admin Note: declined Medications amLODIPine 5 mg oral tablet See Instructions, TAKE 1 TABLET BY MOUTH EVERY DAY, # 30 tablet, Refills 5, Tot. Refills 5, Soft Stop, 12/21/20 9:23:00 EDT, Instructions Replace Required Details, Route to Pharmacy Electronically, [facility]/pharmacy #5727, 157, cm, 10/27/20 10:35:00 EDT, H... Start Date: 12/21/20 Status: Ordered atorvastatin 40 mg oral tablet See Instructions, TAKE 1 TABLET BY MOUTH EVERY DAY, # 30 tablet, 5 Refills, Maintenance, 02/14/21 8:04:00 EDT, [facility]/pharmacy #2339, 157, cm, 10/27/20 10:35:00 EDT, Height, 80.1, kg, 01/22/20 14:40:00 EDT, Dry Weight Start Date: 02/14/21 Status: Ordered fenofibrate 54 mg oral tablet See Instructions, TAKE 1 TABLET BY MOUTH EVERY DAY, # 30 tablet, 5 Refills, Maintenance, 02/14/21 8:04:00 EDT, [facility]/pharmacy #2339, 157, cm, 10/27/20 10:35:00 EDT, Height, [...] Replace Required Details, Route to Pharmacy Electronically, [facility]/pharmacy #2339, 157, cm, 10/27/20 10:35:00 ED... Start Date: 02/07/21 Status: Ordered mercaptopurine 50 mg oral tablet 2 tablet = 100 mg, By Mouth, Daily in AM, 0 Refills, Maintenance, 01/06/20 11:07:00 EDT Start Date: 01/06/20 Status: Ordered pregabalin 150 mg oral capsule 1 capsule = 150 mg, By Mouth, 2 times a day, # 60 capsule, 5 Refills, Maintenance, 05/31/21 11:19:00 EST, Capsule, [facility]/pharmacy #0693, generic brand only, 157, cm, 05/30/21 [...] vaginal dryness(Confirmed) Active 1colo 201418; repeat 2020 11981; repeat 2017 Vital Signs Most recent to oldest [Reference Range]: 1 Height 157 cm (06/07/21 8:43 AM) Weight 80.8 kg (06/07/21 8:43 AM) Oxygen Saturation [94-100 %] 97 % (06/07/21 8:43 AM) Pulse Rate [55-90 bpm] 93 bpm *H* (06/07/21 8:43 AM) Body Mass Index [18.5-24.99] 32.78 *>HHI* (06/07/21 8:43 AM) Blood Pressure [90-138/55-84 mm Hg] 118/ 70mm Hg (06/07/21 8:43 AM) Mode of Delivery (Oxygen) Room air (06/07/21 8:43 AM) Blood pressure sites Arm, left (06/07/21 8:43 AM) Weight Obtained Via Standing scale (06/07/21 8:43 AM) Social History Social History Type Response Smoking Status Never smoker entered on: 09/20/16 Sex
--- OUTSIDE RECORDS SUMMARY | 2023-11-27 20:13 | XMS_ITS | Continuity of Care Document ---
Author Organization [facility] Milo lt Address [address] [place] [address]- Care Team Providers Care Ground Crewman Name Role Phone Dwight De Oliveira MD Primary Care Physician Encounter [facility] [place] Date(s): 08/01/22 - 10/12/22 [facility] Adult [address] [place] [address]- Attending Physician: Dwight De Oliveira MD Allergies, [...] 12/30/19 Not Given Patient Refuses 1Result Comment: [id number] 2Admin Note: declined 3Admin Note: declined Medications atorvastatin 40 mg oral tablet 1 tablet, By Mouth, Daily, # 90 tablet, 0 Refills, Maintenance, 08/01/22 15:19:00 EDT, [facility], 157, cm, 02/15/22 10:32:00 EDT, Height Start Date: 08/01/22 Status: Ordered Clobetasol (Eqv-Temovate) 0.05% topical cream See Instructions, APPLY TO AFFECTED AREA TWICE A DAY, # 60 Gm, 0 Refills, Maintenance, 06/22/22 11:25:00 EST, [facility], 30, APPLY TO AFFECTED AREA TWICE A DAY, 157, cm, 02/15/22 10:32:00 EDT, Height Start Date: 06/22/22 Status: Ordered fenofibrate 54 mg oral tablet 1 tablet, By Mouth, Daily, # 90 tablet, 0 Refills, Maintenance, 08/01/22 15:19:00 EDT, [facility], 157, cm, 02/15/22 10:32:00 EDT, Height Start Date: 08/01/22 Status: Ordered Humira See Instructions, 40 mg Subcutaneous Infusion Once every 15 days, 0 Refills, Maintenance, 06/20/12 10:48:17 EST Start Date: 06/20/12 Status: Ordered lisinopril 20 mg oral tablet 1, tablet, By Mouth, Daily, # 90 tablet, Refills 0, Tot. Refills 0, Maintenance, 08/01/22 15:19:00 EDT, Route to Pharmacy Electronically, [facility] #[id number], 157, cm, 02/15/22 10:32:00 EDT, Height Start Date: 08/01/22 Status: Ordered mercaptopurine 50 mg oral tablet 2 tablet = 100 mg, By Mouth, Daily in AM, 0 Refills, Maintenance, 01/06/20 11:07:00 EDT Start Date: 01/06/20 Status: Ordered pregabalin 150 mg oral capsule 1 capsule = 150 mg, By Mouth, 2 times a day, # 60 capsule, 5 Refills, Maintenance, 08/02/22 8:50:00EDT, Capsule, [facility] #[id number], generic brand only, 157, cm, 02/15/22 10:32:00 [...] 12/06/21 9:21:00 EDT, Route to Pharmacy Electronically, [facility]/pharmacy #1757, Partial fill upon patient request if the [...] dryness Confirmed Active 1colo 2014; repeat 2020 63896; repeat 2017 Social History Social History Type Response Smoking Status Never smoker entered on: 09/20/16 Sex Patient Care team information Care Team Personnel Name: Anderson Best RN Position: S RN Member Role: Primary Care Nurse Name: Dwight De Oliveira MD Position: S Physician - Primary Care Member Role: PCP Address: Address: [address] [place] [id number]- Name: Anette Boyce RN Position: S RN Member Role: Primary Care Nurse Name: Afia Hughes RN Position: S RN Member Role: Primary Care Nurse Name: Tomer Merino RN Position: S RN Member Role: Primary Care Nurse Care Team Related Persons Name: APRIL CRENSHAWIC Address: [address] [address]
--- OUTSIDE RECORDS SUMMARY | 2023-11-27 20:13 | XMS_ITS | Continuity of Care Document ---
Author Organization [facility] Milo lt Address [address] [place] [address]- Care Team Providers Care Beauty Consultant Name Role Phone Dwight De Oliveira MD Primary Care Physician Encounter [facility] [place] Date(s): 09/07/20 - 10/07/20 [facility] Adult [address] [place] [address]- Allergies, Adverse Reactions, Alerts Substance Reaction Severity [...] Replace Required Details, Route to Pharmacy Electronically, [facility]/pharmacy #[id number], 157, cm, 05/03/20 6:52:00 EST, He... Start Date: 07/19/20 Status: Ordered atorvastatin 40 mg oral tablet 1 tablet, By Mouth, Daily, # 30 tablet, 5 Refills, Maintenance, 08/02/20 15:10:00 EDT, [facility]/pharmacy#2339, 157, cm, 05/03/20 6:52:00 EST, Height, 80.1, kg, 01/22/20 14:40:00 EDT, Dry Weight Start Date: 08/02/20 Status: Ordered fenofibrate 54 mg oral tablet 1 tablet, By Mouth, Daily, # 30 tablet, 5 Refills, Maintenance, 08/02/20 15:13:00 EDT, [facility]/pharmacy#2339, 157, cm, 05/03/20 6:52:00 EST, Height, 80.1, kg, 01/22/20 14:40:00 EDT, Dry Weight Start Date: 08/02/20 Status: Ordered Flagyl 500 mg oral tablet 1 tablet = 500 mg, By Mouth, 3 times a day, # 30 tablet, 0 Refills, Maintenance, 01/26/20 8:16:00 EDT, [facility], 157, cm, 01/26/20 8:00:00 EDT, [...] 08/02/20 15:13:00 EDT, Route to Pharmacy Electronically, [facility]/pharmacy #[id number], 157, cm, 05/03/20 6:52:00 EST, [...] each, 0 Refills, Maintenance, 01/08/20 14:41:00 EDT, [facility]/pharmacy #2339, 158, cm, 12/31/19 4:02:00 EDT, Height, 85, kg, 12/29/19 16:02:0... Start Date: 01/08/20 Status: Ordered pregabalin 150 mg oral capsule 1 capsule = 150 mg, By Mouth, 2 times a day, for 30 days, # 60 capsule, 5 Refills, Hard Stop 11/30/20 14:28:00 EDT, 06/03/20 14:28:00 EST, Capsule, [facility]/pharmacy #2339, generic brand only, 157, cm, [...] 17:39:00 EDT, Aerosol, Route to Pharmacy Electronically, [id number], [facility], 157, cm, 09/01/20 17:23:00 EDT, [...] vaginal dryness(Confirmed) Active 1colo 2014; repeat 2020 00084; repeat 2017 Social History Social History Type Response Smoking Status Never smoker entered on: 09/20/16 Sex
--- OUTSIDE RECORDS SUMMARY | 2023-11-27 20:13 | XMS_ITS | Continuity of Care Document ---
Author Organization [facility] Milo lt Address [address] [place] [address]- Care Team Providers Care Sales Enablement Manager Name Role Phone Dwight De Oliveira MD Primary Care Physician En[place] [facility] [place] Date(s): 02/15/22 - 03/17/22 [facility] Adult [address] [place] [address]- Attending Physician: Admtr, Ar8 Allergies, Adverse Reactions, [...] 12/30/19 Not Given Patient Refuses 1Result Comment: [id number] 2Admin Note: declined 3Admin Note: declined Medications atorvastatin 40 mg oral tablet 1 tablet, By Mouth, Daily, # 30 tablet, 5 Refills, Maintenance, 02/15/22 12:10:00 EDT, [facility], 157, cm, 02/15/22 10:32:00 EDT, Height Start Date: 02/15/22 Status: Ordered clobetasol 0.05% topical cream See Instructions, APPLY TO AFFECTED AREA TWICE A DAY, # 60 Gm, 0 Refills, Maintenance, 02/05/22 6:39:00 EDT, [facility], 60, APPLY TO AFFECTED AREA TWICE A DAY, 157, cm, 12/06/21 8:57:00 EDT, Height Start Date: 02/05/22 Status: Ordered fenofibrate 54 mg oral tablet 1 tablet, By Mouth, Daily, # 30 tablet, 5 Refills, Maintenance, 02/02/22 6:48:00 EDT, [facility], 157, cm, 12/06/21 8:57:00 EDT, Height Start Date: 02/02/22 Status: Ordered Humira See Instructions, 40 mg Subcutaneous Infusion Once every 15 days, 0 Refills, Maintenance, 06/20/12 10:48:17 EST Start Date: 06/20/12 Status: Ordered lisinopril 20 mg oral tablet 1, tablet, By Mouth, Daily, # 30 tablet, Refills 5, Maintenance, 02/02/22 6:49:00 EDT, Route to Pharmacy Electronically, [facility], 157, cm, 12/06/21 8:57:00 EDT, Height Start Date: 02/02/22 Status: Ordered mercaptopurine 50 mg oral tablet 2 tablet = 100 mg, By Mouth, Daily in AM, 0 Refills, Maintenance, 01/06/20 11:07:00 EDT Start Date: 01/06/20 Status: Ordered pregabalin 150 mg oral capsule 1 capsule = 150 mg, By Mouth, 2 times a day, # 60 capsule, 5 Refills, Maintenance, 10/30/21 8:55:00EDT, Capsule, [facility]/pharmacy #0693, generic brand only, 157, cm, [...] 12/06/21 9:21:00 EDT, Route to Pharmacy Electronically, [facility]/pharmacy #2339, Partial fill upon patient request if the prescription is for a schedule II opioid drug.... Start Date: 12/06/21 Status: Ordered Zithromax 250 mg oral tablet 1 pack/packet, By Mouth, Once, # 6 tablet, 0 Refills, Soft Stop, 02/20/22 11:08:00 EDT, Tablet, [facility]/pharmacy #2339, Partial fill upon patient request if [...] Status Never smoker entered on: 09/20/16 Sex EKG study * Event Display: EKG Authored Date: * Event Display: EKG Authored Date: * Event Display: EKG Authored Date: Note * Event Display: Laboratory Result Scanned Authored Date: * Event Display: Non BH Lab Results Authored Date: * Event Display: Non BH Lab Results Authored Date: * Event Display: CT Scan Abdomen, Non- BH Authored Date: * Event Display: Radiology Result Scanned Authored Date: * Event Display: Radiology Result Scanned Authored Date: * Suad Choudhary: PERFORM Event Display: Radiology Results Scanned Authored Date: Cardiology Outpatient Note * Nikki Donnelly: PERFORM Event Display: Cardiology Note Office Authored Date: [id number] * Larisa Quach: PERFORM Event Display: Cardiology Note Office Authored Date: Patient Care team information Care Team Personnel Name: Anderson Best RN Position: [facility] RN Member Role: Primary Care Nurse Name: Dwight De Oliveira MD Position: [facility] Primary Care Physician Member Role: PCP Address: Address: [address] [place] [address]- Name: Anette Boyce RN Position: S RN Member Role: Primary Care Nurse Name: Afia Hughes RN Position: S RN Member Role: Primary Care Nurse Name: Tomer Merino RN Position: S RN Member Role: Primary Care Nurse Care Team Related Persons Name: ROSE CRENSHAW Address: [address] [address]
--- OUTSIDE RECORDS SUMMARY | 2023-11-27 20:13 | XMS_ITS | Continuity of Care Document ---
Author Organization [facility] Address [address] [place] [address] [address] [place] [address]- Care Team Providers Care Scout Professional Sports Name Role Phone Dwight De Oliveira MD Primary Care Physician [phone] Encounter [facility] [place] Date(s): 01/12/20 - 02/11/[address] [place] [address]- [facility] Allergies, Adverse Reactions, Alerts Substance Reaction Severity [...] Replace Required Details, Route to Pharmacy Electronically, [facility]/pharmacy #2339, 158, cm, 12/31/19 4:02:00 EDT, He... Start Date: 01/12/20 Status: Ordered atorvastatin 40 mg oral tablet 1 tablet, By Mouth, Daily, # 30 tablet, 5 Refills, Maintenance, 02/05/20 11:40:00 EDT, [facility]/pharmacy#2339, 157, cm, 01/26/20 8:00:00 EDT, Height, 80.1, kg, 01/22/20 14:40:00 EDT, Dry Weight Start Date: 02/05/20 Status: Ordered fenofibrate 54 mg oral tablet 1 tablet, By Mouth, Daily, # 30 tablet, 5 Refills, Maintenance, 02/05/20 11:30:00 EDT, [facility]/pharmacy#2339, 157, cm, 01/26/20 8:00:00 EDT, Height, 80.1, kg, 01/22/20 14:40:00 EDT, Dry Weight Start Date: 02/05/20 Status: Ordered Flagyl 500 mg oral tablet 1 tablet = 500 mg, By Mouth, 3 times a day, # 30 tablet, 0 Refills, Maintenance, 01/26/20 8:16:00 EDT, [facility], 157, cm, 01/26/20 8:00:00 [...] 02/05/20 11:30:00 EDT, Route to Pharmacy Electronically, [facility]/pharmacy #2339, 157, cm, 01/26/20 8:00:00 [...] 01/26/20 8:13:00 EDT, Route to Pharmacy Electronically, [facility] Start Date: 01/26/20 Stop Date: 02/25/20 Status: Ordered loperamide 2 mg oral capsule 4 mg, 2, capsule, By Mouth, 3 times a day before meals and bedtime, PRN, for 30 days, # 240 capsule, Refills 0, Tot. Refills 0, Acute 02/25/20 8:13:00 EDT, Loose Stool, 01/26/20 8:13:00 EDT, Route toPharmacy Electronically, [facility],... Start Date: 01/26/20 Stop [...] each, 0 Refills, Maintenance, 01/08/20 14:41:00 EDT, [facility]/pharmacy #2339, 158, cm, 12/31/19 4:02:00 [...] vaginal dryness(Confirmed) Active 1colo 2014; repeat 2020 42574; repeat 2017 Social History Social History Type Response Smoking Status Never smoker entered on: 09/20/16 Sex
--- OUTSIDE RECORDS SUMMARY | 2023-11-27 20:13 | XMS_ITS | Continuity of Care Document ---
Author Organization [facility] Address [address] [place] [address] [address] [place] [address]- Care Team Providers Care Multicultural Services Librarian Name Role Phone Dwight De Oliveira MD Primary Care Physician [phone] Encounter [facility] [place] Date(s): 02/10/20 - 02/17/[address] [place] [address]- [facility] Attending Physician: Deena Greenfield MD Referring Physician: Dwight De Oliveira MD [...] to Pharmacy Electronically, [facility]/pharmacy #[id number], 158, cm, 12/31/19 4:02:00 EDT, [facility] Start Date: 01/12/20 Status: Ordered atorvastatin 40 mg oral tablet 1 tablet, By Mouth, Daily, # 30 tablet, 5 Refills, Maintenance, 02/05/20 11:40:00 EDT, [facility], 157, cm, 01/26/20 8:00:00 EDT, Height, 80.1, kg, 01/22/20 14:40:00 EDT, Dry Weight Start Date: 02/05/20 Status: Ordered fenofibrate 54 mg oral tablet 1 tablet, By Mouth, Daily, # 30 tablet, 5 Refills, Maintenance, 02/05/20 11:30:00 EDT, [facility]/pharmacy#2339, 157, cm, 01/26/20 8:00:00 EDT, Height, 80.1, kg, 01/22/20 14:40:00 EDT, Dry Weight Start Date: 02/05/20 Status: Ordered Flagyl 500 mg oral tablet 1 tablet = 500 mg, By Mouth, 3 times a day, # 30 tablet, 0 Refills, Maintenance, 01/26/20 8:16:00 EDT, [facility], 157, cm, 01/26/20 8:00:00 [...] Pharmacy Electronically, [facility]/pharmacy #2339, 157, cm, 01/26/20 8:00:00 EDT, Height, [...] 01/26/20 8:13:00 EDT, Route to Pharmacy Electronically, [facility] Start Date: 01/26/20 Stop Date: 02/25/20 Status: Ordered loperamide 2 mg oral capsule 4 mg, 2, capsule, By Mouth, 3 times a day before meals and bedtime, PRN, for 30 days, # 240 capsule, Refills 0, Tot. Refills 0, Acute 02/25/20 8:13:00 EDT, Loose Stool, 01/26/20 8:13:00 EDT, Route toPharmacy Electronically, [facility],... Start Date: 01/26/20 Stop [...] 0 Refills, Maintenance, 01/08/20 14:41:00 EDT, [facility]/pharmacy #2339, 158, cm, 12/31/19 4:02:00 EDT, Height, [...]
--- OUTSIDE RECORDS SUMMARY | 2023-11-27 20:13 | XMS_ITS | Continuity of Care Document ---
Author Organization [facility] Milo lt Address [address] [place] [address]- Care Team Providers Care Vortex Operator Name Role Phone Dwight De Oliveira MD Primary Care Physician [place] [facility] [place] 07/08/23 - 08/07/23 [facility] [address] [place] [address]- Allergies, Adverse Reactions, Alerts No Known Allergies Immunizations Given and Recorded Vaccine Date Status Refusal Reason SARS-CoV-2 (COVID-19) Ad26 vaccine 1 10/27/20 Give n Influenza Virus Vaccine (oldterm) 2 01/31/17 Given tetanus/diphtheria/pertussis, acel(Tdap) 09/20/16 Given tetanus-diphtheria toxoids (Td) 3 01/20/05 Given 1Result Comment: [id number] 2Admin Note: declined 3Admin Note: declined Medications atorvastatin 40 mg oral tablet 1 tablet, By Mouth, Daily, # 90 tablet, 1 Refills, Maintenance, 05/13/23 9:00:00 [facility] #[id number], 157, cm, 10/17/22 7:48:00 EDT, Height Start Date: 05/13/23 Status: Ordered Clobetasol (Eqv-Temovate) 0.05% topical cream See Instructions, APPLY TO AFFECTED AREA TWICE A DAY, # 60 Gm, 0 Refills, Maintenance, 06/22/22 11:25:00 [facility] 15[facility], 30, APPLY TO AFFECTED AREA TWICE A DAY, 157, cm, 02/15/22 10:32:00 EDT, Height Start Date: 06/22/22 Status: Ordered fenofibrate 54 mg oral tablet 1 tablet, By Mouth, Daily, # 90 tablet, 1 Refills, Maintenance, 05/13/23 9:00:00 EST, [facility] #[id number], 157, cm, 10/17/22 7:48:00 EDT, Height Start Date: 05/13/23 Status: Ordered lisinopril 20 mg oral tablet 1, tablet, By Mouth, Daily, # 90 tablet, Refills 1, Tot. Refills 1, Maintenance, 02/13/23 8:15:00 EDT, [id number], 157, cm, 10/17/22 7:48:00 EDT, Height Start Date: 02/13/23 Status: Ordered mercaptopurine 50 mg oral tablet 2 tablet = 100 mg, By Mouth, Daily in AM, 0 Refills, Maintenance, 01/06/20 11:07:00 EDT Start Date: 01/06/20 Status: Ordered pregabalin 150 mg oral capsule 1 capsule = 150 mg, By Mouth, 2 times a day, # 60 capsule, 5 Refills, Maintenance, 07/09/23 15:47:00 EST, Capsule, [facility] #[id number], generic brand only, 157, cm, 06/21/23 8:23:00 [...] to Pharmacy Electronically, [facility]/pharmacy #[id number], Partial fill upon patient request if the [...] Personnel Name: Dwight De Oliveira MD Position: [facility] Physician - Primary Care Member Role: PCP Address: Address: [address] [place] [id number]- Name: Anette Boyce RN Position: [facility] [place] Nurse Member Role: Primary Care Nurse Name: Afia Hughes RN Position: [facility] RN Member Role: Primary Care Nurse Name: Tomer Merino RN Position: [facility] RN Member Role: Primary Care Nurse Care Team Related Persons Name: ROSE CRENSHAW Address: [address] [address]
--- OUTSIDE RECORDS SUMMARY | 2023-11-27 20:13 | XMS_ITS | Continuity of Care Document ---
Author Organization [facility] Mil[facility] [place] Address [address] [place] [address]- Care Team Providers Care Termite Control Technician Name Role Phone Dwight De Oliveira MD Primary Care Physician [place] [facility] [place] 03[place]22 [facility] Adult [address] [place] [address]- Allergies, Adverse Reactions, Alerts No Known Allergies [...] 12/30/19 Not Given Patient Refuses 1Result Comment: [id number] 2Admin Note: declined 3Admin Note: declined Medications atorvastatin 40 mg oral tablet 1 tablet, By Mouth, Daily, # 30 tablet, 5 Refills, Maintenance, 02/15/22 12:10:00 EDT, [facility]/pharmacy#2339, 157, cm, 02/15/22 10:32:00 EDT, Height Start Date: 02/15/22 Status: Ordered clobetasol 0.05% topical cream See Instructions, APPLY TO AFFECTED AREA TWICE A DAY, # 60 Gm, 0 Refills, Maintenance, 02/05/22 6:39:00 EDT, [facility], 60, APPLY TO AFFECTED AREA TWICE A DAY, 157, cm, 12/06/21 8:57:00 EDT, Height Start Date: 02/05/22 Status: Ordered fenofibrate 54 mg oral tablet 1 tablet, By Mouth, Daily, # 30 tablet, 5 Refills, Maintenance, 02/02/22 6:48:00 EDT, [facility] STORE 75965, 157, cm, 12/06/21 8:57:00 EDT, Height Start Date: 02/02/22 Status: Ordered Humira See Instructions, 40 mg Subcutaneous Infusion Once every 15 days, 0 Refills, Maintenance, 06/20/12 10:48:17 EST Start Date: 06/20/12 Status: Ordered lisinopril 20 mg oral tablet 1, tablet, By Mouth, Daily, # 30 tablet, Refills 5, Maintenance, 02/02/22 6:49:00 EDT, Route to Pharmacy Electronically, [facility] STORE 49123, 157, cm, 12/06/21 8:57:00 EDT, Height Start Date: 02/02/22 Status: Ordered mercaptopurine 50 mg oral tablet 2 tablet = 100 mg, By Mouth, Daily in AM, 0 Refills, Maintenance, 01/06/20 11:07:00 EDT Start Date: 01/06/20 Status: Ordered pregabalin 150 mg oral capsule 1 capsule = 150 mg, By Mouth, 2 times a day, # 60 capsule, 5 Refills, Maintenance, 10/30/21 8:55:00EDT, Capsule, [facility]/pharmacy #0693, generic brand [...] 9:21:00 EDT, Route to Pharmacy Electronically, [facility]/pharmacy #2339, Partial fill upon patient request [...] dryness Confirmed Active 1colo 201418; repeat 2020 32488; repeat 2017 Social History Social History Type Response Smoking Status Never smoker entered on: 09/20/16 Sex Patient Care team information Care Team Personnel Name: Anderson Best RN Position: [facility] RN Member Role: Primary Care Nurse Name: Dwight De Oliveira MD Position: [facility] Primary Care Physician Member Role: PCP Address: Address: [address] [place] [id number]- Name: Anette Boyce RN Position: S RN Member Role: Primary Care Nurse Name: Afia Hughes RN Position: S RN Member Role: Primary Care Nurse Name: Tomer Merino RN Position: S RN Member Role: Primary Care Nurse Care Team Related Persons Name: APRIL CRENSHAWIC Address: [address] [address]
--- OUTSIDE RECORDS SUMMARY | 2023-11-27 20:14 | XMS_ITS | Continuity of Care Document ---
Author Organization [facility] Mil[facility] [place] Address [address] [place] [address]- Care Team Providers Care Merchandise Complaint Adjuster Name Role Phone Dwight De Oliveira MD Primary Care Physician Encounter [facility] Date(s): 08/24/21 - 09/23/21 [facility] Adult [address] [place] [address]- Allergies, Adverse Reactions, Alerts No Known Allergies [...] 12/30/19 Not Given Patient Refuses 1Result Comment: [id number] 2Admin Note: declined 3Admin Note: declined Medications amLODIPine 5 mg oral tablet 1 tablet, By Mouth, Daily, # 30 tablet, 5 Refills, [facility] 01640, 157, cm, 06/07/21 8:43:00 EST, Height, 80.1, kg, 01/22/20 14:40:00 EDT, Dry Weight Start Date: 06/18/21 Status: Ordered atorvastatin 40 mg oral tablet 1 tablet, By Mouth, Daily, # 30 tablet, 5 Refills, [facility] 29564, 157, cm, 06/07/21 8:43:00 EST, Height, 80.1, kg, 01/22/20 14:40:00 EDT, Dry Weight Start Date: 08/07/21 Status: Ordered clobetasol 0.05% topical cream 1 application, Topically, 2 times a day, # 60 Gm, 0 Refills, Maintenance, 08/30/21 16:43:00 EDT, Cream, [facility]/pharmacy #2339, Partial fill upon patient request if the prescription is for a schedule II opioid drug., 1 application Topically 2 times a day,... Start Date: 08/30/21 Status: Ordered fenofibrate 54 mg oral tablet 1 tablet, By Mouth, Daily, # 30 tablet, 5 Refills, [facility] STORE 34811, 157, cm, 06/07/21 8:43:00 EST, Height, 80.1, [...] Replace Required Details, Route to Pharmacy Electronically, [facility]/pharmacy #2339, 157, cm, 10/27/20 10:35:00 ED... [...] 5 Refills, Maintenance, 05/31/21 11:19:00 EST, Capsule, [facility]/pharmacy #0693, generic brand only, 157, [...] vaginal dryness(Confirmed) Active 1colo 2014; repeat 2020 08823; repeat 2017 Social History Social History Type Response Smoking Status Never smoker entered on: 09/20/16 Sex
--- OUTSIDE RECORDS SUMMARY | 2023-11-27 20:14 | XMS_ITS | Continuity of Care Document ---
Author Organization [facility] [place] Mil[facility] lt Address [address] [place] [address]- Care Team Providers Care Mexican Food Machine Tender Name Role Phone Dwight De Oliveira MD Primary Care Physician [phone] Encounter [facility] [place] Date(s): 07/05/23 - 08/04/23 [facility] [place] Adult [address] [place] [address]- Allergies, Adverse Reactions, Alerts No Known Allergies Immunizations Given and Recorded Vaccine Date Status Refusal Reason SARS-CoV-2 (COVID-19) Ad26 vaccine 1 10/27/20 Give n Influenza Virus Vaccine (oldterm) 2 01/31/17 Given tetanus/diphtheria/pertussis, acel(Tdap) 09/20/16 Given tetanus-diphtheria toxoids (Td) 3 01/20/05 Given 1Result Comment: [id number] 2Admin Note: declined 3Admin Note: declined Medications atorvastatin 40 mg oral tablet 1 tablet, By Mouth, Daily, # 90 tablet, 1 Refills, Maintenance, 05/13/23 9:00:00 [facility] #[id number], 157, cm, 10/17/22 7:48:00 EDT, Height Start Date: 05/13/23 Status: Ordered Clobetasol (Eqv-Temovate) 0.05% topical cream See Instructions, APPLY TO AFFECTED AREA TWICE A DAY, # 60 Gm, 0 Refills, Maintenance, 06/22/22 11:25:00 [facility] ST[facility] 51822, 30, APPLY TO AFFECTED AREA TWICE A DAY, 157, cm, 02/15/22 10:32:00 EDT, Height Start Date: 06/22/22 Status: Ordered fenofibrate 54 mg oral tablet 1 tablet, By Mouth, Daily, # 90 tablet, 1 Refills, Maintenance, 05/13/23 9:00:00 EST, [facility] #[id number], 157, cm, 10/17/22 7:48:00 EDT, Height Start Date: 05/13/23 Status: Ordered lisinopril 20 mg oral tablet 1, tablet, By Mouth, Daily, # 90 tablet, Refills 1, Tot. Refills 1, Maintenance, 02/13/23 8:15:00 EDT, [facility], 157, cm, 10/17/22 7:48:00 EDT, Height Start Date: 02/13/23 Status: Ordered mercaptopurine 50 mg oral tablet 2 tablet = 100 mg, By Mouth, Daily in AM, 0 Refills, Maintenance, 01/06/20 11:07:00 EDT Start Date: 01/06/20 Status: Ordered pregabalin 150 mg oral capsule 1 capsule = 150 mg, By Mouth, 2 times a day, # 60 capsule, 5 Refills, Maintenance, 07/09/23 15:47:00 EST, Capsule, [facility] #[id number], generic brand only, 157, cm, 06/21/23 8:23:00 [...] EDT, Route to Pharmacy Electronically, [facility]/pharmacy #[id number], Partial fill upon patient request if the [...] Personnel Name: Dwight De Oliveira MD Position: [facility] Physician - Primary Care Member Role: PCP Address: Address: [address] [place] [address]- Name: Anette Boyce RN Position: [facility] [place] Nurse Member Role: Primary Care Nurse Name: Afia Hughes RN Position: [facility] RN Member Role: Primary Care Nurse Name: Tomer Merino RN Position: [facility] RN Member Role: Primary Care Nurse Care Team Related Persons Name: ROSE CRENSHAW Address: [address] [address]
--- OUTSIDE RECORDS SUMMARY | 2023-11-27 20:14 | XMS_ITS | Continuity of Care Document ---
Author Organization [facility] Milo lt Address [address] [place] [address]- Care Team Providers Care Parliamentary Librarian Name Role Phone Dwight De Oliveira MD Primary Care Physician [place] [facility] [place](s): 04/25/20 - 05/25/20 [facility] Adult [address] [place] [address]- Allergies, Adverse Reactions, Alerts Substance Reaction Severity [...] Route to Pharmacy Electronically, [facility]/pharmacy #[id number], 158, cm, 12/31/19 4:02:00 EDT, He... Start Date: 01/12/20 Status: Ordered atorvastatin 40 mg oral tablet 1 tablet, By Mouth, Daily, # 30 tablet, 5 Refills, Maintenance, 02/05/20 11:40:00 EDT, [facility]/pharmacy#2339, 157, cm, 01/26/20 8:00:00 EDT, Height, 80.1, kg, 01/22/20 14:40:00 EDT, Dry Weight Start Date: 02/05/20 Status: Ordered fenofibrate 54 mg oral tablet 1 tablet, By Mouth, Daily, # 30 tablet, 5 Refills, Maintenance, 02/05/20 11:30:00 EDT, [facility]/pharmacy#2339, 157, cm, 01/26/20 8:00:00 EDT, Height, 80.1, kg, 01/22/20 14:40:00 EDT, Dry Weight Start Date: 02/05/20 Status: Ordered Flagyl 500 mg oral tablet 1 tablet = 500 mg, By Mouth, 3 times a day, # 30 tablet, 0 Refills, Maintenance, 01/26/20 8:16:00 EDT, [facility], 157, cm, 01/26/20 8:00:00 EDT, [...] 11:30:00 EDT, Route to Pharmacy Electronically, [facility]/pharmacy #2339, 157, cm, 01/26/20 8:00:00 EDT, Height, [...] Maintenance, 01/08/20 14:41:00 EDT, [facility]/pharmacy #2339, 158, cm, 12/31/19 4:02:00 EDT, Height, [...] vaginal dryness(Confirmed) Active 1colo 201418; repeat 2020 16748; repeat 2017 Social History Social History Type Response Smoking Status Never smoker entered on: 09/20/16 Sex
--- OUTSIDE RECORDS SUMMARY | 2023-11-27 20:14 | XMS_ITS | Continuity of Care Document ---
Author Organization [facility] Milo lt Address [address] [place] [address]- Care Team Providers Care Shredding Machine Tender Name Role Phone Dwight De Oliveira MD Primary Care Physician [phone] [place] [facility] [place] 05/21/21 [facility] Adult [address] [place] [address]- Attending Physician: Admtr, Ar8 Allergies, Adverse Reactions, [...] 12/30/19 Not Given Patient Refuses 1Result Comment: [id number] 2Admin Note: declined 3Admin Note: declined Medications amLODIPine 5 mg oral tablet See Instructions, TAKE 1 TABLET BY MOUTH EVERY DAY, # 30 tablet, Refills 5, Tot. Refills 5, Soft Stop, 12/21/20 9:23:00 EDT, Instructions Replace Required Details, Route to Pharmacy Electronically, [facility]/pharmacy #[id number], 157, cm, 10/27/20 10:35:00 EDT, H... Start [...] Replace Required Details, Route to Pharmacy Electronically, [facility]/pharmacy #2339, 157, cm, 10/27/20 10:35:00 ED... Start Date: 02/07/21 Status: Ordered mercaptopurine 50 mg oral tablet 2 tablet = 100 mg, By Mouth, Daily in AM, 0 Refills, Maintenance, 01/06/20 11:07:00 EDT Start Date: 01/06/20 Status: Ordered pregabalin 150 mg oral capsule 1 capsule = 150 mg, By Mouth, 2 times a day, # 60 capsule, 5 Refills, Maintenance, 12/02/20 8:32:00EDT, Capsule, [facility]/pharmacy #0693, generic brand only, 157, cm, 10/27/20 [...] 17:39:00 EDT, Aerosol, Route to Pharmacy Electronically, [id number], [facility]/pharmacy #2339, 157, cm, 09/01/20 17:23:00 EDT, Hei... [...] vaginal dryness(Confirmed) Active 1colo 2014; repeat 2020 40386; repeat 2017 Social History Social History Type Response Smoking Status Never smoker entered on: 09/20/16 Sex
--- OUTSIDE RECORDS SUMMARY | 2023-11-27 20:14 | XMS_ITS | Continuity of Care Document ---
Author Organization [facility] [place] Address [address] [place] [address]- Care Team Providers Care Application Software Developer Name Role Phone Dwight De Oliveira MD Primary Care Physician [phone] Encounter [facility] Date(s): 06/24/23 - 08/23/23 [facility] [address] [address] Attending Physician: Carmenza Carney Referring Physician: Dwight De Oliveira MD Allergies, Adverse Reactions, Alerts No Known Allergies Immunizations Given and Recorded Vaccine Date Status Refusal Reason SARS-CoV-2 (COVID-19) Ad26 vaccine 1 10/27/20 Give n Influenza Virus Vaccine (oldterm) 2 01/31/17 Given tetanus/diphtheria/pertussis, acel(Tdap) 09/20/16 Given tetanus-diphtheria toxoids (Td) 3 01/20/05 Given 1Result Comment: [id number] 2Admin Note: declined 3Admin Note: declined Medications atorvastatin 40 mg oral tablet 1 tablet, By Mouth, Daily, # 90 tablet, 1 Refills, Maintenance, 05/13/23 9:00:00 [facility] #[id number], 157, cm, 10/17/22 7:48:00 EDT, Height Start Date: 05/13/23 Status: Ordered Clobetasol (Eqv-Temovate) 0.05% topical cream See Instructions, APPLY TO AFFECTED AREA TWICE A DAY, # 60 Gm, 0 Refills, Maintenance, 06/22/22 11:25:00 [facility] 81627, 30, APPLY TO AFFECTED AREA TWICE A DAY, 157, cm, 02/15/22 10:32:00 EDT, Height Start Date: 06/22/22 Status: Ordered fenofibrate 54 mg oral tablet 1 tablet, By Mouth, Daily, # 90 tablet, 1 Refills, Maintenance, 05/13/23 9:00:00 EST, [facility] #16514, 157, cm, 10/17/22 7:48:00 EDT, Height Start Date: 05/13/23 Status: Ordered lisinopril 20 mg oral tablet 1, tablet, By Mouth, Daily, # 90 tablet, Refills 1, Maintenance, 08/08/23 10:38:00 EDT, [facility], 157, cm, 06/21/23 8:23:00 EST, Height Start Date: 08/08/23 Status: Ordered mercaptopurine 50 mg oral tablet 2 tablet = 100 mg, By Mouth, Daily in AM, 0 Refills, Maintenance, 01/06/20 11:07:00 EDT Start Date: 01/06/20 Status: Ordered pregabalin 150 mg oral capsule 1 capsule = 150 mg, By Mouth, 2 times a day, # 60 capsule, 5 Refills, Maintenance, 07/09/23 15:47:00 EST, [id number], generic brand only, 157, cm, 06/21/23 8:23:00 [...] 12/06/21 9:21:00 EDT, Route to Pharmacy Electronically, [facility]/pharmacy #8477, Partial fill upon patient request if the [...] Personnel Name: Dwight De Oliveira MD Position: [facility] Physician - Primary Care Member Role: PCP Address: Address: [address] [place] [address]- Name: Anette Boyce RN Position: [facility] [place] Nurse Member Role: Primary Care Nurse Name: Afia Hughes RN Position: [facility] RN Member Role: Primary Care Nurse Name: Tomer Merino RN Position: [facility] RN Member Role: Primary Care Nurse Care Team Related Persons Name: ROSE CRENSHAW Address: [address] [address]
--- OUTSIDE RECORDS SUMMARY | 2023-11-27 20:14 | XMS_ITS | Continuity of Care Document ---
Author Organization [facility] Address [address] [place] [address]- Care Team Providers Care Bite Block Maker Name Role Phone Dwight De Oliveira MD Primary Care Physician [phone] [place] [facility] [place] 10/17/19 - 11/22/[address] [address]- [facility] Attending Physician: Dwight De Oliveira MD Admitting [...] Replace Required Details, Route to Pharmacy Electronically, [facility]/pharmacy #5703, [id number], 06/22/19 9:24:00 EST, H... Start Date: 07/13/19 Status: Ordered atorvastatin 40 mg oral tablet 1 tablet, By Mouth, Daily, # 30 tablet, 5 Refills, Maintenance, 07/23/19 14:20:00 EDT, [facility] STORE 17238, 158, mikayla, 06/22/19 9:24:00 EST, Height, 81.6, [...] 11/04/19 11:42:00 EDT, Route to Pharmacy Electronically, [facility]/pharmacy #2339, 158, cm, 11/04/19 11:05:00 EDT, Height Start Date: 11/04/19 Status: Ordered fenofibrate 54 mg oral tablet 1 tablet, By Mouth, Daily, # 30 tablet, 5 Refills, Maintenance, 07/23/19 14:20:00 EDT, [facility] STORE 95870, 158, cm, 06/22/19 9:24:00 EST, Height, 81.6, kg, 09/24/17 8:57:00 EDT, Dry Weight Start Date: 07/23/19 Status: Ordered fluticasone 27.5 mcg/inh nasal spray 1 sprays, Nares, Both, Daily, PRN for allergy symptoms, # 10 Gm, 1 Refills, Maintenance, 11/04/19 11:41:00 EDT, [facility], [facility]/pharmacy #2339, 1 sprays Nares, Both Daily,PRN:for [...] EDT, Route to Pharmacy Electronically, [facility], 158, cm, 06/22/19 9:24:00 EST, Height, 81.6,kg, 09/24/17 8:57:00 EDT, Dry Weight Start Date: 07/23/19 Status: Ordered meclizine 25 mg oral tablet 1 tablet = 25 mg, By Mouth, 3 times a day, PRN for dizziness, # 30 tablet, 0 Refills, Maintenance, 11/10/19 10:36:00 EDT, Tablet, [facility]/pharmacy #2339, 158, cm, 11/10/19 9:31:00 EDT, Height Start Date: 11/10/19 Status: Ordered pregabalin 150 mg oral capsule 1 capsule = 150 mg, By Mouth, 2 times a day, # 180 capsule, 3 Refills, Maintenance, 10/16/19 16:18:00 EDT, Capsule, [facility]/pharmacy #2339, generic brand only, 158, cm, [...] vaginal dryness(Confirmed) Active 1colo 2014; repeat 2020 75240; repeat 2017 Social History Social History Type Response Smoking Status Never smoker entered on: 09/20/16 Sex
--- OUTSIDE RECORDS SUMMARY | 2023-11-27 20:14 | XMS_ITS | Continuity of Care Document ---
Author Organization [facility] Address [address] [place] [address]- Care Team Providers Care High School Business Teacher Name Role Phone Yennifer OSORIO, Dwight Dunlap Primary Care Physician Encounter [facility] Date(s): 06/17/19 - 08/26/[address] [address]- [facility] Attending Physician: Jan Melendez MD Admitting Physician: Jan Melendez MD Referring Physician: Jan Melendez MD Allergies, Adverse Reactions, Alerts Substance Reaction [...] Pharmacy Electronically, [facility]/pharmacy #2339, 158, cm, 06/22/19 9:24:00 EST, H... Start Date: 07/13/19 Status: Ordered atorvastatin 40 mg oral tablet 1 tablet, By Mouth, Daily, # 30 tablet, 5 Refills, Maintenance, 07/23/19 14:20:00 EDT, [facility] STORE 76616, 158, cm, 06/22/19 9:24:00 EST, Height, 81.6, [...] tablet, 5 Refills, Maintenance, 07/23/19 14:20:00 EDT, [facility] STORE 18928, 158, cm, 06/22/19 9:24:00 EST, Height, 81.6, kg, 09/24/17 8:57:00 EDT, Dry Weight Start Date: 07/23/19 Status: Ordered Humira See Instructions, 40 mg Subcutaneous Infusion Once every 15 days, 0 Refills, Maintenance, 06/20/12 10:48:17 Start Date: 06/20/12 Status: Ordered lisinopril 20 mg oral tablet 1, tablet, By Mouth, Daily, # 30 tablet, Refills 5, Tot. Refills 0, Maintenance, 07/23/19 14:20:00 EDT, Route to Pharmacy Electronically, [facility] 40066, 158, cm, 06/22/19 9:24:00 EST, Height, 81.6,kg, 09/24/17 8:57:00 EDT, Dry Weight Start Date: 07/23/19 Status: Ordered pregabalin 150 mg oral capsule 1 capsule = 150 mg, By Mouth, 2 times a day, # 180 capsule, 0 Refills, Maintenance, 07/20/19 9:51:00 EDT, Capsule, [facility]/pharmacy #2336, generic brand only, 158, cm, 06/22/19 9:24:00 EST, Height, 81.6,kg, 09/24/17 8:57:00 EDT, Dry Weight Start Date: 07/20/19 Status: Ordered Problem List Condition Effective Dates [...] vaginal dryness(Confirmed) Active 1colo 2014; repeat 2020 61129; repeat 2017 Social History Social History Type Response Smoking Status Never smoker entered on: 09/20/16 Sex
--- OUTSIDE RECORDS SUMMARY | 2023-11-27 20:14 | XMS_ITS | Continuity of Care Document ---
Author Organization [facility] Milo lt Address [address] [place] [address]- Care Team Providers Care Blanket Winder Operator Name Role Phone Dwight De Oliveira MD Primary Care Physician [phone] Encounter [facility] [place] Date(s): 02/13/23 - 03/15/23 [facility] Adult [address] [place] [address]- Allergies, Adverse Reactions, Alerts No Known Allergies Immunizations Given and Recorded Vaccine Date Status Refusal Reason SARS-CoV-2 (COVID-19) Ad26 vaccine 1 10/27/20 Give n Influenza Virus Vaccine (oldterm) 2 01/31/17 Given tetanus/diphtheria/pertussis, acel(Tdap) 09/20/16 Given tetanus-diphtheria toxoids (Td) 3 01/20/05 Given 1Result Comment: [id number] 2Admin Note: declined 3Admin Note: declined Medications atorvastatin 40 mg oral tablet 1 tablet, By Mouth, Daily, # 90 tablet, 1 Refills, Maintenance, 10/24/22 10:14:00 EDT, [facility][id number], 157, cm, 10/17/22 7:48:00 EDT, Height Start Date: 10/24/22 Status: Ordered Clobetasol (Eqv-Temovate) 0.05% topical cream See Instructions, APPLY TO AFFECTED AREA TWICE A DAY, # 60 Gm, 0 Refills, Maintenance, 06/22/22 11:25:00 EST, [facility], 30, APPLY TO AFFECTED AREA TWICE A DAY, 157, cm, 02/15/22 10:32:00 EDT, Height Start Date: 06/22/22 Status: Ordered fenofibrate 54 mg oral tablet 1 tablet, By Mouth, Daily, # 90 tablet, 1 Refills, Maintenance, 10/24/22 10:14:00 EDT, [facility] #[id number], 157, cm, 10/17/22 7:48:00 EDT, Height Start Date: 10/24/22 Status: Ordered lisinopril 20 mg oral tablet 1, tablet, By Mouth, Daily, # 90 tablet, Refills 1, Tot. Refills 1, Maintenance, 02/13/23 8:15:00 EDT, Route to Pharmacy Electronically, [facility] #[id number], 157, cm, 10/17/22 7:48:00 EDT, Height Start Date: 02/13/23 Status: Ordered mercaptopurine 50 mg oral tablet 2 tablet = 100 mg, By Mouth, Daily in AM, 0 Refills, Maintenance, 01/06/20 11:07:00 EDT Start Date: 01/06/20 Status: Ordered pregabalin 150 mg oral capsule 1 capsule = 150 mg, By Mouth, 2 times a day, # 60 capsule, 5 Refills, Maintenance, 12/31/22 10:09:00 EDT, Capsule, [facility] #[id number], generic brand only, 157, cm, 10/17/22 7:48:00 [...] 12/06/21 9:21:00 EDT, Route to Pharmacy Electronically, [facility]/pharmacy #[id number], Partial fill upon patient request if the [...] Personnel Name: Dwight De Oliveira MD Position: [facility] Physician - Primary Care Member Role: PCP Address: Address: [address] [place] [address]- Name: Anette Boyce RN Position: [facility] AMB Nurse Member Role: Primary Care Nurse Name: Afia Hughes RN Position: [facility] RN Member Role: Primary Care Nurse Name: Tomer Merino RN Position: [facility] RN Member Role: Primary Care Nurse Care Team Related Persons Name: ROSE CRENSHAW Address: [address] [address]
--- OUTSIDE RECORDS SUMMARY | 2023-11-27 20:14 | XMS_ITS | Continuity of Care Document ---
Author Organization [facility] Address [address] [place] [address] [address] [place] [address]- Care Team Providers Care Sole Stitcher Hand Name Role Phone Dwight De Oliveira MD Primary Care Physician [phone] Encounter [facility] [place] Date(s): 01/19/20 - 02/18/[address] [place] [address]- [facility] Allergies, Adverse Reactions, Alerts Substance Reaction Severity [...] [facility]/pharmacy #[id number], 158, cm, 12/31/19 4:02:00 EDT, He... Start Date: 01/12/20 Status: Ordered atorvastatin 40 mg oral tablet 1 tablet, By Mouth, Daily, # 30 tablet, 5 Refills, Maintenance, 02/05/20 11:40:00 EDT, [facility]/pharmacy#2339, 157, cm, 01/26/20 8:00:00 EDT, Height, 80.1, kg, 01/22/20 14:40:00 EDT, Dry Weight Start Date: 02/05/20 Status: Ordered fenofibrate 54 mg oral tablet 1 tablet, By Mouth, Daily, # 30 tablet, 5 Refills, Maintenance, 02/05/20 11:30:00 EDT, [facility]/pharmacy#2339, 157, cm, 01/26/20 8:00:00 EDT, Height, 80.1, kg, 01/22/20 14:40:00 EDT, Dry Weight Start Date: 02/05/20 Status: Ordered Flagyl 500 mg oral tablet 1 tablet = 500 mg, By Mouth, 3 times a day, # 30 tablet, 0 Refills, Maintenance, 01/26/20 8:16:00 EDT, [facility], 157, cm, 01/26/20 8:00:00 EDT, Height, 80.1, kg, 01/22/20 14:40:00 EDT, Dry Weight Start Date: 01/26/20 Stop Date: 02/05/20 Status: Ordered Humira See Instructions, 40 mg Subcutaneous Infusion Once every 15 days, 0 Refills, Maintenance, 06/20/12 10:48:17 EST Start Date: 06/20/12 Status: Ordered Keflex monohydrate 500 mg oral capsule 1 capsule = 500 mg, By Mouth, 4 times a day, for 10 days, # 40 capsule, 0 Refills, Acute 02/28/20 14:40:00 EDT, 02/18/20 14:40:00 EDT, Capsule, [facility]/pharmacy #2339, 157, cm, 02/17/20 14:14:00 EDT, Height, 80.1, kg, 01/22/20 14:40:00 EDT, Dry Weight Start Date: 02/18/20 Stop Date: 02/28/20 Status: Ordered lisinopril 20 mg oral tablet 1, tablet, By Mouth, Daily, # 30 tablet, Refills 5, Tot. Refills 5, Maintenance, 02/05/20 11:30:00 EDT, Route to Pharmacy Electronically, [facility]/pharmacy #2339, 157, cm, 01/26/20 8:00:00 EDT, [...] 01/26/20 8:13:00 EDT, Route to Pharmacy Electronically, [facility] Start Date: 01/26/20 Stop Date: 02/25/20 Status: Ordered loperamide 2 mg oral capsule 4 mg, 2, capsule, By Mouth, 3 times a day before meals and bedtime, PRN, for 30 days, # 240 capsule, Refills 0, Tot. Refills 0, Acute 02/25/20 8:13:00 EDT, Loose Stool, 01/26/20 8:13:00 EDT, Route toPharmacy Electronically, [facility],... Start Date: 01/26/20 Stop [...] each, 0 Refills, Maintenance, 01/08/20 14:41:00 EDT, [facility]/pharmacy #2339, 158, cm, 12/31/19 [...] vaginal dryness(Confirmed) Active 1colo 2014; repeat 2020 60987; repeat 2017 Social History Social History Type Response Smoking Status Never smoker entered on: 09/20/16 Sex
--- OUTSIDE RECORDS SUMMARY | 2023-11-27 20:14 | XMS_ITS | Continuity of Care Document ---
Author Organization [facility] Milo lt Address [address] [place] [address]- Care Team Providers Care Piece Work Checker Name Role Phone Dwight De Oliveira MD Primary Care Physician [phone] Encounter [facility] [place] Date(s): 10/30/21 - 11/06/21 [facility] Adult [address] [place] [address]- Attending Physician: Dwight De Oliveira MD Allergies, [...] 12/30/19 Not Given Patient Refuses 1Result Comment: [id number] 2Admin Note: declined 3Admin Note: declined Medications amLODIPine 5 mg oral tablet 1 tablet, By Mouth, Daily, # 30 tablet, 5 Refills, [facility], 157, cm, 06/07/21 8:43:00 EST, Height, 80.1, kg, 01/22/20 14:40:00 EDT, Dry Weight Start Date: 06/18/21 Status: Ordered atorvastatin 40 mg oral tablet 1 tablet, By Mouth, Daily, # 30 tablet, 5 Refills, [facility] 79[facility], 157, cm, 06/07/21 8:43:00 EST, Height, 80.1, kg, 01/22/20 14:40:00 EDT, Dry Weight Start Date: 08/07/21 Status: Ordered clobetasol 0.05% topical cream 1 application, Topically, 2 times a day, # 60 Gm, 0 Refills, Maintenance, 08/30/21 16:43:00 EDT, Cream, [facility]/pharmacy #2339, Partial fill upon patient request if the prescription is for a schedule II opioid drug., 1 application Topically 2 times a day,... Start Date: 08/30/21 Status: Ordered fenofibrate 54 mg oral tablet 1 tablet, By Mouth, Daily, # 30 tablet, 5 Refills, [facility] 97271, 157, cm, 06/07/21 8:43:00 EST, Height, 80.1, [...] Replace Required Details, Route to Pharmacy Electronically, [facility]/pharmacy #[id number], 157, cm, 10/27/20 10:35:00 ED... Start Date: 02/07/21 Status: Ordered mercaptopurine 50 mg oral tablet 2 tablet = 100 mg, By Mouth, Daily in AM, 0 Refills, Maintenance, 01/06/20 11:07:00 EDT Start Date: 01/06/20 Status: Ordered pregabalin 150 mg oral capsule 1 capsule = 150 mg, By Mouth, 2 times a day, # 60 capsule, 5 Refills, Maintenance, 10/30/21 8:55:00EDT, Capsule, [facility]/pharmacy #[id number], generic brand only, 157, cm, 10/30/21 [...] vaginal dryness(Confirmed) Active 1colo 201418; repeat 2020 52033; repeat 2017 Vital Signs Most recent to oldest [Reference Range]: 1 Height 157 cm (10/30/21 8:21 AM) Weight 80.9 kg (10/30/21 8:21 AM) Oxygen Saturation [94-100 %] 98 % (10/30/21 8:21 AM) Pulse Rate [55-90 bpm] 82 bpm (10/30/21 8:21 AM) Body Mass Index [18.5-24.99] 32.82 *>HHI* (10/30/21 8:21 AM) Blood Pressure [90-138/55-84 mm Hg] 112/ 72mm Hg (10/30/21 8:21 AM) Mode of Delivery (Oxygen) Room air (10/30/21 8:21 AM) Blood pressure sites Arm, left (10/30/21 8:21 AM) Weight Obtained Via Standing scale (10/30/21 8:21 AM) Social History Social History Type Response Smoking Status Never smoker entered on: 09/20/16 Sex
--- OUTSIDE RECORDS SUMMARY | 2023-11-27 20:14 | XMS_ITS | Continuity of Care Document ---
Author Organization [facility] Address [address] [place] [address]- Care Team Providers Care Party Coordinator Name Role Phone Yennifer OSORIO, Dwight Dunlap Primary Care Physician [place] [facility] [place] 08/05/19 - 08/15/[address] [facility] [address] [address]- [facility] Attending Physician: Calderon Rodrigez Admitting Physician: [...] Replace Required Details, Route to Pharmacy Electronically, [facility]/pharmacy #[id number], 158mikayla, 06/22/19 9:24:00 EST, H... Start Date: 07/13/19 Status: Ordered atorvastatin 40 mg oral tablet 1 tablet, By Mouth, Daily, # 30 tablet, 5 Refills, Maintenance, 07/23/19 14:20:00 EDT, [facility] 87335, 158, mikayla, 06/22/19 9:24:00 EST, Height, 81.6, [...] tablet, 5 Refills, Maintenance, 07/23/19 14:20:00 EDT, [facility] 40860, 158, cm, 06/22/19 9:24:00 EST, Height, 81.6, [...] 07/23/19 14:20:00 EDT, Route to Pharmacy Electronically, [facility] 8[facility]25, 158, cm, 06/22/19 9:24:00 EST, Height, 81.6,kg, 09/24/17 8:57:00 EDT, Dry Weight Start Date: 07/23/19 Status: Ordered pregabalin 150 mg oral capsule 1 capsule = 150 mg, By Mouth, 2 times a day, # 180 capsule, 0 Refills, Maintenance, 07/20/19 9:51:00 EDT, Capsule, [facility]/pharmacy #2331, generic brand only, 158, cm, 06/22/19 9:24:00 [...] vaginal dryness(Confirmed) Active 1colo 2014; repeat 2020 44651; repeat 2017 Social History Social History Type Response Smoking Status Never smoker entered on: 09/20/16 Sex
--- OUTSIDE RECORDS SUMMARY | 2023-11-27 20:14 | XMS_ITS | Continuity of Care Document ---
Author Organization [facility] Milo lt Address [address] [place] [address]- Care Team Providers Care Coating Mixer Tender Name Role Phone Dwight De Oliveira MD Primary Care Physician Encounter [facility] [place] Date(s): 04/25/20 - 05/25/20 [facility] Adult [address] [place] [address]- Allergies, Adverse Reactions, Alerts Substance Reaction Severity [...] Details, Route to Pharmacy Electronically, [facility]/pharmacy #[id number], 158, cm, 12/31/19 4:02:00 EDT, He... Start Date: 01/12/20 Status: Ordered atorvastatin 40 mg oral tablet 1 tablet, By Mouth, Daily, # 30 tablet, 5 Refills, Maintenance, 02/05/20 11:40:00 EDT, [facility]/pharmacy#2339, 157, cm, 01/26/20 8:00:00 EDT, Height, 80.1, kg, 01/22/20 14:40:00 EDT, Dry Weight Start Date: 02/05/20 Status: Ordered fenofibrate 54 mg oral tablet 1 tablet, By Mouth, Daily, # 30 tablet, 5 Refills, Maintenance, 02/05/20 11:30:00 EDT, [facility]/pharmacy#2339, 157, cm, 01/26/20 8:00:00 EDT, Height, 80.1, kg, 01/22/20 14:40:00 EDT, Dry Weight Start Date: 02/05/20 Status: Ordered Flagyl 500 mg oral tablet 1 tablet = 500 mg, By Mouth, 3 times a day, # 30 tablet, 0 Refills, Maintenance, 01/26/20 8:16:00 EDT, [facility], 157, cm, 01/26/20 8:00:00 [...] Pharmacy Electronically, [facility]/pharmacy #[id number], 157, cm, 01/26/20 8:00:00 EDT, [...] Refills, Maintenance, 01/08/20 14:41:00 EDT, [facility]/pharmacy #2339, 158, cm, 12/31/19 4:02:00 EDT, [...] vaginal dryness(Confirmed) Active 1colo 201418; repeat 2020 18952; repeat 2017 Social History Social History Type Response Smoking Status Never smoker entered on: 09/20/16 Sex
--- OUTSIDE RECORDS SUMMARY | 2023-11-27 20:14 | XMS_ITS | Continuity of Care Document ---
Author Organization [facility] Milo [facility] Address [address] [place] [address]- Care Team Providers Care Law Enforcement Officer Name Role Phone Dwight De Oliveira MD Primary Care Physician [place] [facility] [place] 11[place]03/20 [facility] Adult [address] [place] [address]- Encounter Diagnosis CC (Crohn's colitis)(Discharge Diagnosis) - 10/27/20 Hypercholesterolemia(Discharge Diagnosis) - 10/27/20 Hypertension(Discharge Diagnosis) - 10/27/20 Fibromyalgia syndrome(Discharge Diagnosis) - 10/27/20 Attending Physician: Dwight De Oliveira MD Allergies, [...] 12/30/19 Not Given Patient Refuses 1Result Comment: [id number] 2Admin Note: declined 3Admin Note: declined Medications amLODIPine 5 mg oral tablet See Instructions, TAKE 1 TABLET BY MOUTH EVERY DAY, # 30 tablet, Refills 11, Tot. Refills 11, Soft Stop, 10/27/20 10:52:00 EDT, Instructions Replace Required Details, Route to Pharmacy Electronically, [facility]/pharmacy #[id number], 157, cm, 10/27/20 10:35:00 EDT... Start Date: 10/27/20 Status: Ordered atorvastatin 40 mg oral tablet See Instructions, TAKE 1 TABLET BY MOUTH EVERY DAY, # 30 tablet, 11 Refills, Maintenance, [id number], 157, cm, 10/27/20 10:35:00 EDT, Height, 80.1, kg, 01/22/20 14:40:00 EDT, Dry Weight Start Date: 10/27/20 Status: Ordered fenofibrate 54 mg oral tablet See Instructions, TAKE 1 TABLET BY MOUTH EVERY DAY, # 30 tablet, 11 Refills, Maintenance, [id number], 157, cm, 10/27/20 10:35:00 EDT, Height, 80.1, kg, 01/22/20 14:40:00 EDT, Dry Weight Start Date: 10/27/20 Status: Ordered Humira See Instructions, 40 mg Subcutaneous Infusion Once every 15 days, 0 Refills, Maintenance, 06/20/12 10:48:17 EST Start Date: 06/20/12 Status: Ordered lisinopril 20 mg oral tablet See Instructions, TAKE 1 TABLET BY MOUTH EVERY DAY, # 30 tablet, Refills 11, Tot. Refills 11, Maintenance, Instructions Replace Required Details, Route to Pharmacy Electronically, [facility] 46235, 157, cm, 10/27/20 10:35:00 EDT, Height, 80.1, kg, 01/04... Start Date: 10/27/20 Status: Ordered mercaptopurine 50 mg oral tablet 2 tablet = 100 mg, By Mouth, Daily in AM, 0 Refills, Maintenance, 01/06/20 11:07:00 EDT Start Date: 01/06/20 Status: Ordered pregabalin 150 mg oral capsule 1 capsule = 150 mg, By Mouth, 2 times a day, # 60 capsule, 5 Refills, Maintenance, 06/03/20 16:22:00 EST, Capsule, [facility]/pharmacy #[id number], generic brand only, 157, cm, 05/03/20 [...] 17:39:00 EDT, Aerosol, Route to Pharmacy Electronically, [id number], [facility]/pharmacy #2339, 157, cm, 09/01/20 17:23:00 EDT, Hei... [...] Effective Dates Health Status Clinical Service Informant CC (Crohn's colitis) Discharge Diagnosis 10/27/20 Hypercholesterolemia Discharge Diagnosis 10/27/20 Hypertension Discharge Diagnosis 10/27/20 Fibromyalgia syndrome Discharge Diagnosis 10/27/20 Vital Signs Most recent to oldest [Reference Range]: 1 Height 157 cm (10/27/20 10:35 AM) Weight 77.6 kg (10/27/20 10:35 AM) Oxygen Saturation [94-100 %] 98 % (10/27/20 10:35 AM) Pulse Rate [55-90 bpm] 102 bpm *H* (10/27/20 10:35 AM) Body Mass Index [18.5-24.99] 31.48 *>HHI* (10/27/20 10:35 AM) Blood Pressure [90-138/55-84 mm Hg] 102/ 70mm Hg (10/27/20 10:35 AM) Mode of Delivery (Oxygen) Room air (10/27/20 10:35 AM) Blood pressure sites Arm, left (10/27/20 10:35 AM) Weight Obtained Via Standing scale (10/27/20 10:35 AM) Social History Social History Type Response Smoking Status Never smoker entered on: 09/20/16 Sex
--- OUTSIDE RECORDS SUMMARY | 2023-11-27 20:14 | XMS_ITS | Continuity of Care Document ---
Author Organization [facility] Mil[facility] Address [address] [place] [address]- Care Team Providers Care Correctional Probation Officer Name Role Phone Dwight De Oliveira MD Primary Care Physician [phone] [place] [facility] [place](s): 04/21/21 - 05/21/21 [facility] Adult [address] [place] [address]- Allergies, Adverse Reactions, Alerts No Known Allergies [...] 12/30/19 Not Given Patient Refuses 1Result Comment: [id number] 2Admin Note: declined 3Admin Note: declined Medications amLODIPine 5 mg oral tablet See Instructions, TAKE 1 TABLET BY MOUTH EVERY DAY, # 30 tablet, Refills 5, Tot. Refills 5, Soft Stop, 12/21/20 9:23:00 EDT, Instructions Replace Required Details, Route to Pharmacy Electronically, [facility]/pharmacy #[id number], 157, cm, 10/27/20 10:35:00 EDT, H... Start Date: 12/21/20 Status: Ordered atorvastatin 40 mg oral tablet See Instructions, TAKE 1 TABLET BY MOUTH EVERY DAY, # 30 tablet, 5 Refills, Maintenance, 02/14/21 8:04:00 EDT, [facility]/pharmacy #2339, 157, cm, 10/27/20 10:35:00 EDT, Height, 80.1, kg, 01/22/20 14:40:00 EDT, Dry Weight Start Date: 02/14/21 Status: Ordered fenofibrate 54 mg oral tablet See Instructions, TAKE 1 TABLET BY MOUTH EVERY DAY, # 30 tablet, 5 Refills, Maintenance, 02/14/21 8:04:00 EDT, [facility]/pharmacy #2339, 157, cm, 10/27/20 10:35:00 EDT, [...] Replace Required Details, Route to Pharmacy Electronically, [facility]/pharmacy #2339, 157, cm, 10/27/20 10:35:00 ED... Start Date: 02/07/21 Status: Ordered mercaptopurine 50 mg oral tablet 2 tablet = 100 mg, By Mouth, Daily in AM, 0 Refills, Maintenance, 01/06/20 11:07:00 EDT Start Date: 01/06/20 Status: Ordered pregabalin 150 mg oral capsule 1 capsule = 150 mg, By Mouth, 2 times a day, # 60 capsule, 5 Refills, Maintenance, 12/02/20 8:32:00EDT, Capsule, [facility]/pharmacy #[id number], generic brand only, 157, cm, [...] 17:39:00 EDT, Aerosol, Route to Pharmacy Electronically, [id number], [facility]/pharmacy #2339, 157, cm, 09/01/20 17:23:00 EDT, [...] vaginal dryness(Confirmed) Active 1colo 2014; repeat 2020 33510; repeat 2017 Social History Social History Type Response Smoking Status Never smoker entered on: 09/20/16 Sex
--- OUTSIDE RECORDS SUMMARY | 2023-11-27 20:14 | XMS_ITS | Continuity of Care Document ---
Author Organization [facility] [place] Milo [facility] Address [address] [place] [address]- Care Team Providers Care Survey Crew Chief Name Role Phone Dwight De Oliveira MD Primary Care Physician [place] [facility] [place](s): 01/12/20 - 02/11/20 [facility] [place] Adult [address] [place] [address]- [facility] Allergies, Adverse Reactions, Alerts Substance Reaction [...] Replace Required Details, Route to Pharmacy Electronically, [facility]/pharmacy #[id number], 158, cm, 12/31/19 4:02:00 EDT, He... Start Date: 01/12/20 Status: Ordered atorvastatin 40 mg oral tablet 1 tablet, By Mouth, Daily, # 30 tablet, 5 Refills, Maintenance, 02/05/20 11:40:00 EDT, [facility]/pharmacy#2339, 157, cm, 01/26/20 8:00:00 EDT, Height, 80.1, kg, 01/22/20 14:40:00 EDT, Dry Weight Start Date: 02/05/20 Status: Ordered fenofibrate 54 mg oral tablet 1 tablet, By Mouth, Daily, # 30 tablet, 5 Refills, Maintenance, 02/05/20 11:30:00 EDT, [facility]/pharmacy#2339, 157, cm, 01/26/20 8:00:00 EDT, Height, 80.1, kg, 01/22/20 14:40:00 EDT, Dry Weight Start Date: 02/05/20 Status: Ordered Flagyl 500 mg oral tablet 1 tablet = 500 mg, By Mouth, 3 times a day, # 30 tablet, 0 Refills, Maintenance, 01/26/20 8:16:00 EDT, [facility], 157, cm, 01/26/20 8:00:00 [...] EDT, [id number], cm, 01/26/20 8:00:00 EDT, Height, [...] 01/26/20 8:13:00 EDT, Route to Pharmacy Electronically, [facility] Start Date: 01/26/20 Stop Date: 02/25/20 Status: Ordered loperamide 2 mg oral capsule 4 mg, 2, capsule, By Mouth, 3 times a day before meals and bedtime, PRN, for 30 days, # 240 capsule, Refills 0, Tot. Refills 0, Acute 02/25/20 8:13:00 EDT, Loose Stool, 01/26/20 8:13:00 EDT, Route toPharmacy Electronically, [facility],... Start Date: 01/26/20 Stop [...]
--- OUTSIDE RECORDS SUMMARY | 2023-11-27 20:14 | XMS_ITS | Continuity of Care Document ---
Author Organization [facility] [place] Mil[facility] Address [address] [place] [address]- Care Team Providers Care Meat Team Member Name Role Phone Dwight De Oliveira MD Primary Care Physician [place] [facility] [place] 02/16/22 - 03/18/22 [facility] [place] Adult [address] [place] [address]- Allergies, Adverse Reactions, Alerts No Known Allergies [...] 12/30/19 Not Given Patient Refuses 1Result Comment: [id number] 2Admin Note: declined 3Admin Note: declined Medications atorvastatin 40 mg oral tablet 1 tablet, By Mouth, Daily, # 30 tablet, 5 Refills, Maintenance, 02/15/22 12:10:00 EDT, [facility]/pharmacy#2339, 157, cm, 02/15/22 10:32:00 EDT, Height Start Date: 02/15/22 Status: Ordered clobetasol 0.05% topical cream See Instructions, APPLY TO AFFECTED AREA TWICE A DAY, # 60 Gm, 0 Refills, Maintenance, 02/05/22 6:39:00 EDT, [facility], 60, APPLY TO AFFECTED AREA TWICE A DAY, 157, cm, 12/06/21 8:57:00 EDT, Height Start Date: 02/05/22 Status: Ordered fenofibrate 54 mg oral tablet 1 tablet, By Mouth, Daily, # 30 tablet, 5 Refills, Maintenance, 02/02/22 6:48:00 EDT, [facility] ST[facility] 99831, 157, cm, 12/06/21 8:57:00 EDT, Height Start Date: 02/02/22 Status: Ordered Humira See Instructions, 40 mg Subcutaneous Infusion Once every 15 days, 0 Refills, Maintenance, 06/20/12 10:48:17 EST Start Date: 06/20/12 Status: Ordered lisinopril 20 mg oral tablet 1, tablet, By Mouth, Daily, # 30 tablet, Refills 5, Maintenance, 02/02/22 6:49:00 EDT, Route to Pharmacy Electronically, [facility] 79058, 157, cm, 12/06/21 8:57:00 EDT, Height Start Date: 02/02/22 Status: Ordered mercaptopurine 50 mg oral tablet 2 tablet = 100 mg, By Mouth, Daily in AM, 0 Refills, Maintenance, 01/06/20 11:07:00 EDT Start Date: 01/06/20 Status: Ordered pregabalin 150 mg oral capsule 1 capsule = 150 mg, By Mouth, 2 times a day, # 60 capsule, 5 Refills, Maintenance, 10/30/21 8:55:00EDT, Capsule, [facility]/pharmacy #[id number], generic brand only, 157, cm, 10/30/21 [...] dryness Confirmed Active 1colo 2014; repeat 2020 07973; repeat 2017 Social History Social History Type Response Smoking Status Never smoker entered on: 09/20/16 Sex Patient Care team information Care Team Personnel Name: Anderson Best RN Position: [facility] RN Member Role: Primary Care Nurse Name: Dwight De Oliveira MD Position: [facility] Primary Care Physician Member Role: PCP Address: Address: [address] [place] [address]- Name: Anette Boyce RN Position: S RN Member Role: Primary Care Nurse Name: Afia Hughes RN Position: S RN Member Role: Primary Care Nurse Name: Tomer Merino RN Position: [facility] RN Member Role: Primary Care Nurse Care Team Related Persons Name: ROSE CRENSHAW Address: [address] [address]
--- OUTSIDE RECORDS SUMMARY | 2023-11-27 20:14 | XMS_ITS | Continuity of Care Document ---
Author Organization [facility] Mil[facility] Address [address] [place] [address]- Care Team Providers Care Outer Diameter Grinder Name Role Phone Yennifer OSORIO, Dwight Dunlap Primary Care Physician Encounter [facility] [place] Date(s): 11/03/19 - 12/03/19 [facility] Adult [address] [place] [address]- [facility] Allergies, Adverse Reactions, Alerts Substance Reaction Severity [...] Replace Required Details, Route to Pharmacy Electronically, [facility]/pharmacy #2339, 158, cm, 06/22/19 9:24:00 EST, H... Start Date: 07/13/19 Status: Ordered atorvastatin 40 mg oral tablet 1 tablet, By Mouth, Daily, # 30 tablet, 5 Refills, Maintenance, 07/23/19 14:20:00 EDT, [facility] STORE 58968, 158, cm, 06/22/19 9:24:00 EST, Height, 81.6, [...] 11/04/19 11:42:00 EDT, Route to Pharmacy Electronically, [facility]/pharmacy #2339, 158, cm, 11/04/19 11:05:00 EDT, Height Start Date: 11/04/19 Status: Ordered fenofibrate 54 mg oral tablet 1 tablet, By Mouth, Daily, # 30 tablet, 5 Refills, Maintenance, 07/23/19 14:20:00 EDT, [facility] 60728, 158, cm, 06/22/19 9:24:00 EST, Height, 81.6, kg, 09/24/17 8:57:00 EDT, Dry Weight Start Date: 07/23/19 Status: Ordered fluticasone 27.5 mcg/inh nasal spray 1 sprays, Nares, Both, Daily, PRN for allergy symptoms, # 10 Gm, 1 Refills, Maintenance, 11/04/19 11:41:00 EDT, [facility], [facility]/pharmacy #2339, 1 sprays Nares, Both [...] 07/23/19 14:20:00 EDT, Route to Pharmacy Electronically, [facility]ORE 95985, 158, cm, 06/22/19 9:24:00 EST, Height, 81.6,kg, 09/24/17 8:57:00 EDT, Dry Weight Start Date: 07/23/19 Status: Ordered meclizine 25 mg oral tablet 1 tablet = 25 mg, By Mouth, 3 times a day, PRN for dizziness, # 30 tablet, 0 Refills, Maintenance, 11/10/19 10:36:00 EDT, Tablet, [facility], 158, cm, 11/10/19 9:31:00 EDT, Height [...] vaginal dryness(Confirmed) Active 1colo 2014; repeat 2020 01216; repeat 2017 Social History Social History Type Response Smoking Status Never smoker entered on: 09/20/16 Sex
--- OUTSIDE RECORDS SUMMARY | 2023-11-27 20:14 | XMS_ITS | Continuity of Care Document ---
Author Organization [facility] Milo lt Address [address] [place] [address]- Care Team Providers Care Oven Loader Name Role Phone Dwight De Oliveira MD Primary Care Physician [phone] Encounter [facility] [place] Date(s): 12/06/21 - 12/13/21 [facility] Adult [address] [place] [address]- Encounter Diagnosis Abnormal LFTs(Discharge Diagnosis) - 12/06/21 CC (Crohn's colitis)(Discharge Diagnosis) - 12/06/21 Hypercholesterolemia(Discharge Diagnosis) - 12/06/21 Hypertension(Discharge Diagnosis) - 12/06/21 Palpitations(Discharge Diagnosis) - 12/06/21 Attending Physician: Dwight De Oliveira MD Allergies, [...] 12/30/19 Not Given Patient Refuses 1Result Comment: [id number] 2Admin Note: declined 3Admin Note: declined Medications atorvastatin 40 mg oral tablet 1 tablet, By Mouth, Daily, # 30 tablet, 5 Refills, [facility] 557[facility], 157, cm, 06/07/21 8:43:00 EST, Height, 80.1, kg, 01/22/20 14:40:00 EDT, Dry Weight Start Date: 08/07/21 Status: Ordered clobetasol 0.05% topical cream 1 application, Topically, 2 times a day, # 60 Gm, 0 Refills, Maintenance, 08/30/21 16:43:00 EDT, Cream, [facility]/pharmacy #2339, Partial fill upon patient request if the prescription is for a schedule II opioid drug., 1 application Topically 2 times a day,... Start Date: 08/30/21 Status: Ordered fenofibrate 54 mg oral tablet 1 tablet, By Mouth, Daily, # 30 tablet, 5 Refills, [facility] STORE 13537, 157, cm, 06/07/21 8:43:00 EST, Height, 80.1, [...] Replace Required Details, Route to Pharmacy Electronically, [facility]/pharmacy #2339, 157, cm, 10/27/20 10:35:00 ED... Start Date: 02/07/21 Status: Ordered mercaptopurine 50 mg oral tablet 2 tablet = 100 mg, By Mouth, Daily in AM, 0 Refills, Maintenance, 01/06/20 11:07:00 EDT Start Date: 01/06/20 Status: Ordered pregabalin 150 mg oral capsule 1 capsule = 150 mg, By Mouth, 2 times a day, # 60 capsule, 5 Refills, Maintenance, 10/30/21 8:55:00EDT, Capsule, [facility]/pharmacy #0693, generic brand only, 157, cm, [...] 12/06/21 9:21:00 EDT, Route to Pharmacy Electronically, [facility]/pharmacy #[id number], Partial fill upon patient request if the prescription is for a schedule II opioid drug.... Start Date: 12/06/21 Status: Ordered Problem List Condition Effective Dates [...] Active Hypercholesterolemia(Confirmed) 06/23/09 Active Hypertension(Confirmed) 04/18/10 Active Macrocytic anemia(Confirmed) Active Obese class I(Confirmed) Active Palpitations(Confirmed) Active RLS (restless legs syndrome)(Confirmed) Active Menopausal vaginal dryness(Confirmed) Active 1colo 2014; repeat 202015; repeat 2017 Diagnosis Diagnosis Type Effective Dates Health Status Clinical Service Informant Abnormal LFTs Discharge Diagnosis 12/06/21 CC (Crohn's colitis) Discharge Diagnosis 12/06/21 Hypercholesterolemia Discharge Diagnosis 12/06/21 Hypertension Discharge Diagnosis 12/06/21 Palpitations Discharge Diagnosis 12/06/21 Vital Signs Most recent to oldest [Reference Range]: 1 Height 157 cm (12/06/21 8:57 AM) Weight 81.7 kg (12/06/21 8:57 AM) Oxygen Saturation [94-100 %] 98 % (12/06/21 8:57 AM) Pulse Rate [55-90 bpm] 82 bpm (12/06/21 8:57 AM) Body Mass Index [18.5-24.99] 33.15 *>HHI* (12/06/21 8:57 AM) Blood Pressure [90-138/55-84 mm Hg] 122/ 74mm Hg (12/06/21 8:57 AM) Mode of Delivery (Oxygen) Room air (12/06/21 8:57 AM) Blood pressure sites Arm, left (12/06/21 8:57 AM) Weight Obtained Via Standing scale (12/06/21 8:57 AM) Social History Social History Type Response Smoking Status Never smoker entered on: 09/20/16 Sex
--- OUTSIDE RECORDS SUMMARY | 2023-11-27 20:14 | XMS_ITS | Continuity of Care Document ---
Author Organization [facility] Milo Address [address] [place] [address]- Care Team Providers Care Peoplesoft Analyst Name Role Phone Dwight De Oliveira MD Primary Care Physician Encounter [facility] [place] Date(s): 01/06/20 - 02/05/20 [facility] Adult [address] [place] [address]- [facility] Allergies, Adverse Reactions, Alerts Substance [...] Pharmacy Electronically, [facility]/pharmacy #2339, 158, cm, 12/31/19 4:02:00 EDT, He... Start Date: 01/12/20 Status: Ordered atorvastatin 40 mg oral tablet 1 tablet, By Mouth, Daily, # 30 tablet, 5 Refills, Maintenance, 02/05/20 11:40:00 EDT, [facility]/pharmacy#2339, 157, cm, 01/26/20 8:00:00 EDT, Height, 80.1, kg, 01/22/20 14:40:00 EDT, Dry Weight Start Date: 02/05/20 Status: Ordered fenofibrate 54 mg oral tablet 1 tablet, By Mouth, Daily, # 30 tablet, 5 Refills, Maintenance, 02/05/20 11:30:00 EDT, [facility]/pharmacy#2339, 157, cm, 01/26/20 8:00:00 EDT, Height, 80.1, kg, 01/22/20 14:40:00 EDT, Dry Weight Start Date: 02/05/20 Status: Ordered Flagyl 500 mg oral tablet 1 tablet = 500 mg, By Mouth, 3 times a day, # 30 tablet, 0 Refills, Maintenance, 01/26/20 8:16:00 EDT, [facility], 157, cm, 01/26/20 8:00:00 EDT, [...] 02/05/20 11:30:00 EDT, Route to Pharmacy Electronically, [facility]/pharmacy #2339, 157, cm, 01/26/20 [...] 01/26/20 8:13:00 EDT, Route to Pharmacy Electronically, [facility] Start Date: 01/26/20 Stop Date: 02/25/20 Status: Ordered loperamide 2 mg oral capsule 4 mg, 2, capsule, By Mouth, 3 times a day before meals and bedtime, PRN, for 30 days, # 240 capsule, Refills 0, Tot. Refills 0, Acute 02/25/20 8:13:00 EDT, Loose Stool, 01/26/20 8:13:00 EDT, Route toPharmacy Electronically, [facility],... Start Date: 01/26/20 Stop Date: [...] each, 0 Refills, Maintenance, 01/08/20 14:41:00 EDT, [facility]/pharmacy #2339, 158, cm, 12/31/19 [...] vaginal dryness(Confirmed) Active 1colo 2014; repeat 2020 09786; repeat 2017 Social History Social History Type Response Smoking Status Never smoker entered on: 09/20/16 Sex
--- OUTSIDE RECORDS SUMMARY | 2023-11-27 20:14 | XMS_ITS | Continuity of Care Document ---
Author Organization [facility] Milo lt Address [address] [place] [address]- Care Team Providers Care Camp Guard Name Role Phone Yennifer OSORIO, Dwight Dunlap Primary Care Physician [place] [facility] [place] 11/27/20 [facility] Adult [address] [place] [address]- Allergies, Adverse Reactions, Alerts Substance Reaction Severity [...] 12/30/19 Not Given Patient Refuses 1Result Comment: [id number] 2Admin Note: declined 3Admin Note: declined Medications amLODIPine 5 mg oral tablet See Instructions, TAKE 1 TABLET BY MOUTH EVERY DAY, # 30 tablet, Refills 11, Tot. Refills 11, Soft Stop, 10/27/20 10:52:00 EDT, Instructions Replace Required Details, Route to Pharmacy Electronically, [facility]/pharmacy #0693, 157, cm, 10/27/20 10:35:00 EDT... Start Date: 10/27/20 Status: Ordered atorvastatin 40 mg oral tablet See Instructions, TAKE 1 TABLET BY MOUTH EVERY DAY, # 30 tablet, 11 Refills, Maintenance, [facility] [id number], 157, cm, 10/27/20 10:35:00 EDT, Height, 80.1, kg, 09/18/20 14:40:00 EDT, Dry Weight Start Date: 10/27/20 Status: Ordered fenofibrate 54 mg oral tablet See Instructions, TAKE 1 TABLET BY MOUTH EVERY DAY, # 30 tablet, 11 Refills, Maintenance, [facility] [id number], 157, cm, 10/27/20 10:35:00 EDT, Height, 80.1, [...] Pharmacy Electronically, [facility] STORE 70309, 157, cm, 10/27/20 10:35:00 EDT, Height, 80.1, [...] 5 Refills, Maintenance, 06/03/20 16:22:00 EST, Capsule, [facility]/pharmacy #0693, generic brand only, 157, [...] 17:39:00 EDT, Aerosol, Route to Pharmacy Electronically, [id number], [facility], 157, cm, 09/01/20 17:23:00 EDT, [...] vaginal dryness(Confirmed) Active 1colo 2014; repeat 2020 26591; repeat 2017 Social History Social History Type Response Smoking Status Never smoker entered on: 09/20/16 Sex
--- OUTSIDE RECORDS SUMMARY | 2023-11-27 20:14 | XMS_ITS | Continuity of Care Document ---
Author Organization [facility] Milo lt Address [address] [place] [address]- Care Team Providers Care Elementary School Tutor Name Role Phone Yennifer OSORIO, Dwight Dunlap Primary Care Physician Encounter [facility] [place] Date(s): 10/28/20 - 11/27/20 [facility] Adult [address] [place] [address]- Allergies, Adverse Reactions, Alerts Substance Reaction Severity [...] 12/30/19 Not Given Patient Refuses 1Result Comment: [id number] 2Admin Note: declined 3Admin Note: declined Medications amLODIPine 5 mg oral tablet See Instructions, TAKE 1 TABLET BY MOUTH EVERY DAY, # 30 tablet, Refills 11, Tot. Refills 11, Soft Stop, 10/27/20 10:52:00 EDT, Instructions Replace Required Details, Route to Pharmacy Electronically, [facility]/pharmacy #0693, 157, cm, 10/27/20 10:35:00 EDT... Start Date: 10/27/20 Status: Ordered atorvastatin 40 mg oral tablet See Instructions, TAKE 1 TABLET BY MOUTH EVERY DAY, # 30 tablet, 11 Refills, Maintenance, [facility] [id number], 157, cm, 10/27/20 10:35:00 EDT, Height, 80.1, kg, 01/22/20 14:40:00 EDT, Dry Weight Start Date: 10/27/20 Status: Ordered fenofibrate 54 mg oral tablet See Instructions, TAKE 1 TABLET BY MOUTH EVERY DAY, # 30 tablet, 11 Refills, Maintenance, [facility] [id number], 157, cm, 10/27/20 10:35:00 EDT, Height, 80.1, [...] Replace Required Details, Route to Pharmacy Electronically, [facility] STORE 45315, 157, cm, 10/27/20 10:35:00 EDT, Height, 80.1, [...] 5 Refills, Maintenance, 06/03/20 16:22:00 EST, Capsule, [facility]/pharmacy #0693, generic brand only, 157, cm, 05/03/20 [...] 17:39:00 EDT, Aerosol, Route to Pharmacy Electronically, [id number], [facility], 157, cm, 09/01/20 17:23:00 EDT, [...] vaginal dryness(Confirmed) Active 1colo 2014; repeat 2020 53942; repeat 2017 Social History Social History Type Response Smoking Status Never smoker entered on: 09/20/16 Sex
--- OUTSIDE RECORDS SUMMARY | 2023-11-27 20:14 | XMS_ITS | Continuity of Care Document ---
Author Organization [facility] Address [address] [place] [address]- Care Team Providers Care Sales Assistants And Salespersons Name Role Phone Dwight De Oliveira MD Primary Care Physician Encounter 07/17/23 - 07/24/23 [facility] [address], [address] [place], [place] [address] Attending Physician: Dwight De Oliveira MD Admitting Physician: Dwight De Oliveira MD Referring Physician: Dwight De Oliveira MD Allergies, Adverse Reactions, Alerts No Known Allergies Immunizations Given and Recorded Vaccine Date Status Refusal Reason SARS-CoV-2 (COVID-19) Ad26 vaccine 1 10/27/20 Give n Influenza Virus Vaccine (oldterm) 2 01/31/17 Given tetanus/diphtheria/pertussis, acel(Tdap) 09/20/16 Given tetanus-diphtheria toxoids (Td) 3 01/20/05 Given 1Result Comment: [id number] 2Admin Note: declined 3Admin Note: declined Medications atorvastatin 40 mg oral tablet 1 tablet, By Mouth, Daily, # 90 tablet, 1 Refills, Maintenance, 05/13/23 9:00:00 [facility] #[id number], 157, cm, 10/17/22 7:48:00 EDT, Height Start Date: 05/13/23 Status: Ordered Clobetasol (Eqv-Temovate) 0.05% topical cream See Instructions, APPLY TO AFFECTED AREA TWICE A DAY, # 60 Gm, 0 Refills, Maintenance, 06/22/22 11:25:00 [facility] STORE 15827, 30, APPLY TO AFFECTED AREA TWICE A DAY, 157, cm, 02/15/22 10:32:00 EDT, Height Start Date: 06/22/22 Status: Ordered fenofibrate 54 mg oral tablet 1 tablet, By Mouth, Daily, # 90 tablet, 1 Refills, Maintenance, 05/13/23 9:00:00 EST, [facility] #78334, 157, cm, 10/17/22 7:48:00 EDT, Height Start Date: 05/13/23 Status: Ordered lisinopril 20 mg oral tablet 1, tablet, By Mouth, Daily, # 90 tablet, Refills 1, Tot. Refills 1, Maintenance, 02/13/23 8:15:00 EDT, [id number], 157, cm, 10/17/22 7:48:00 EDT, Height Start Date: 02/13/23 Status: Ordered mercaptopurine 50 mg oral tablet 2 tablet = 100 mg, By Mouth, Daily in AM, 0 Refills, Maintenance, 01/06/20 11:07:00 EDT Start Date: 01/06/20 Status: Ordered pregabalin 150 mg oral capsule 1 capsule = 150 mg, By Mouth, 2 times a day, # 60 capsule, 5 Refills, Maintenance, 07/09/23 15:47:00 EST, [facility]ule, [facility], generic brand only, 157, cm, 06/21/23 8:23:00 [...] 12/06/21 9:21:00 EDT, Route to Pharmacy Electronically, [facility]/pharmacy #[id number], Partial fill upon patient request if the [...] Active Menopausal vaginal dryness Confirmed Active 1colo 2014 86319; repeat 2020 78883; repeat 2017 Results Radiology Reports * Exam Date Time Procedure Performing Provider Status 07/17/23 10:04 AM MM Digital Mammo Screening Maria Teresa Garza; Auth (Verified) Notes: (MM Digital Mammo Screening) Reason For Exam: screeningf RESULT: MM Digital Mammo Screening PROCEDURE: MM Digital Mammo Screening INDICATION: Screening for breast cancer. No known palpable abnormalities. COMPARISON: [facility] dating back to 09/16/2018. TECHNIQUE: Full-field digital CC and MLO 3D tomosynthesis images of both breasts were acquired. Computer-aided detection (CAD) was utilized in the interpretation of this study. DENSITY: The breast tissue contains scattered areas of fibroglandular density. FINDINGS: No suspicious masses, suspicious microcalcifications, or areas of architectural distortion are seen in either breast to suggest malignancy. IMPRESSION: No mammographic evidence of malignancy. RECOMMENDATION: Annual mammographic screening BI-RADS: 1 (Negative) Lay letter mailed to patient WSN: [id number] Ordering Physician: Dwight De Oliveira Dictated By: Anay Estrada MD, I Dictated Date/Time: 07/17/23 2:34 pm Reviewed By: Anay Estrada MD, I Signed By: Anay Estrada MD, I Signed Date/Time: 07/17/23 2:34 pm Transcribed By: LIAM Trauma Manager Date/Time: 07/17/23 2:32 pm Birads: Social History Social History Type Response Smoking Status Never smoker entered on: 09/20/16 Sex Patient Care team information Care Team Personnel Name: Dwight De Oliveira MD Position: [facility] Physician - Primary Care Member Role: PCP Address: Address: [address] [place] [address]- [place] Name: Anette Boyce RN Position: [facility] Nurse Member Role: Primary Care Nurse Name: Afia Hughes RN Position: [facility] RN Member Role: Primary Care Nurse Name: Tomer Merino RN Position: [facility] RN Member Role: Primary Care Nurse Care Team Related Persons Name: ROSE CRENSHAW Address: home [address] [place] [address]
--- OUTSIDE RECORDS SUMMARY | 2023-11-27 20:14 | XMS_ITS | Continuity of Care Document ---
Author Organization [facility] Address [address] [place] [address] [address] [place] [address]- Care Team Providers Care Technical Support Manager Name Role Phone Dwight De Oliveira MD Primary Care Physician [phone] Encounter [facility] Date(s): 01/01/20 - 01/31/[address] [place] [address]- [facility] Allergies, Adverse Reactions, Alerts Substance Reaction Severity [...] to Pharmacy Electronically, [facility]/pharmacy #[id number], 158, cm, 12/31/19 4:02:00 EDT, He... Start Date: 01/12/20 Status: Ordered atorvastatin 40 mg oral tablet 1 tablet, By Mouth, Daily, # 30 tablet, 5 Refills, Maintenance, 01/13/20 15:56:00 EDT, [facility]/pharmacy#2339, 157.48, cm, 01/13/20 14:36:00 EDT, Height, 77.27, kg, 01/12/20 16:16:00 EDT, Dry Weight Start Date: 01/13/20 Status: Ordered fenofibrate 54 mg oral tablet 1 tablet, By Mouth, Daily, # 30 tablet, 5 Refills, Maintenance, 07/23/19 14:20:00 EDT, [facility] ST[facility] 25839, 158, cm, 06/22/19 9:24:00 EST, Height, 81.6, kg, 09/24/17 8:57:00 EDT, Dry Weight Start Date: 07/23/19 Status: Ordered Flagyl 500 mg oral tablet 1 tablet = 500 mg, By Mouth, 3 times a day, # 30 tablet, 0 Refills, Maintenance, 01/26/20 8:16:00 EDT, [facility], 157, cm, 01/26/20 8:00:00 [...] 07/23/19 14:20:00 EDT, Route to Pharmacy Electronically, [facility] 41232, 158, cm, 06/22/19 9:24:00 EST, Height, 81.6,kg, 09/24/17 8:57:00 EDT, Dry Weight Start Date: 07/23/19 Status: Ordered Lomotil 0.025 mg-2.5 mg oral tablet 2, tablet, By Mouth, 3 times a day before meals and bedtime, PRN, for 30 days, # 240 tablet, Refills 0, Tot. Refills 0, Acute, as needed for loose stool, 02/25/20 8:13:00 EDT, 01/26/20 8:13:00 EDT, Route to Pharmacy Electronically, [facility] Start Date: 01/26/20 Stop Date: 02/25/20 Status: Ordered loperamide 2 mg oral capsule 4 mg, 2, capsule, By Mouth, 3 times a day before meals and bedtime, PRN, for 30 days, # 240 capsule, Refills 0, Tot. Refills 0, Acute 02/25/20 8:13:00 EDT, Loose Stool, 01/26/20 8:13:00 EDT, Route toPharmacy Electronically, [facility],... Start Date: 01/26/20 Stop [...] each, 0 Refills, Maintenance, 01/08/20 14:41:00 EDT, [facility]/pharmacy #2339, 158, cm, 12/31/19 4:02:00 EDT, Height, [...]
--- OUTSIDE RECORDS SUMMARY | 2023-11-27 20:14 | XMS_ITS | Continuity of Care Document ---
Author Organization [facility] Milo lt Address [address] [place] [address]- Care Team Providers Care Cannon Pinion Adjuster Name Role Phone Dwight De Oliveira MD Primary Care Physician [phone] [place] [facility] [place] Date(s): 05/02/20 - 06/02/20 [facility] Adult [address] [place] [address]- Attending Physician: Lisa Aguirre NP Referring Physician: Dwight De Oliveira MD [...] Details, Route to Pharmacy Electronically, [facility]/pharmacy #2339, 158, cm, 12/31/19 4:02:00 EDT, He... Start Date: 01/12/20 Status: Ordered atorvastatin 40 mg oral tablet 1 tablet, By Mouth, Daily, # 30 tablet, 5 Refills, Maintenance, 02/05/20 11:40:00 EDT, [facility]/pharmacy#2339, 157, cm, 01/26/20 8:00:00 EDT, Height, 80.1, kg, 01/22/20 14:40:00 EDT, Dry Weight Start Date: 02/05/20 Status: Ordered fenofibrate 54 mg oral tablet 1 tablet, By Mouth, Daily, # 30 tablet, 5 Refills, Maintenance, 02/05/20 11:30:00 EDT, [facility]/pharmacy#2339, 157, cm, 01/26/20 8:00:00 EDT, Height, 80.1, kg, 01/22/20 14:40:00 EDT, Dry Weight Start Date: 02/05/20 Status: Ordered Flagyl 500 mg oral tablet 1 tablet = 500 mg, By Mouth, 3 times a day, # 30 tablet, 0 Refills, Maintenance, 01/26/20 8:16:00 EDT, [facility], 157, cm, 01/26/20 8:00:00 EDT, Height, [...] Route to Pharmacy Electronically, [facility]/pharmacy #2339, 157, cm, 01/26/20 8:00:00 EDT, [...] vaginal dryness(Confirmed) Active 1colo 201418; repeat 2020 86610; repeat 2017 Vital Signs Most recent to oldest [Reference Range]: 1 Height 157 cm (05/03/20 6:52 AM) Social History Social History Type Response Smoking Status Never smoker entered on: 09/20/16 Sex
--- OUTSIDE RECORDS SUMMARY | 2023-11-27 20:14 | XMS_ITS | Continuity of Care Document ---
Author Organization [facility] Milo Address [address] [place] [address]- Care Team Providers Care Manager Athletics Name Role Phone Dwight De Oliveira MD Primary Care Physician [phone] [facility] [place]20 [facility] Adult [address] [place] [address]- [facility] Attending Physician: Admtr, Ar8 Allergies, Adverse Reactions, [...] Electronically, [facility]/pharmacy #2339, 158, cm, 12/31/19 4:02:00 EDT, He... Start Date: 01/12/20 Status: Ordered atorvastatin 40 mg oral tablet 1 tablet, By Mouth, Daily, # 30 tablet, 5 Refills, Maintenance, 02/05/20 11:40:00 EDT, [facility]/pharmacy#2339, 157, cm, 01/26/20 8:00:00 EDT, Height, 80.1, kg, 01/22/20 14:40:00 EDT, Dry Weight Start Date: 02/05/20 Status: Ordered fenofibrate 54 mg oral tablet 1 tablet, By Mouth, Daily, # 30 tablet, 5 Refills, Maintenance, 02/05/20 11:30:00 EDT, [facility]/pharmacy#2339, 157, cm, 01/26/20 8:00:00 EDT, Height, 80.1, kg, 01/22/20 14:40:00 EDT, Dry Weight Start Date: 02/05/20 Status: Ordered Flagyl 500 mg oral tablet 1 tablet = 500 mg, By Mouth, 3 times a day, # 30 tablet, 0 Refills, Maintenance, 01/26/20 8:16:00 EDT, [facility], 157, cm, [...] 02/05/20 11:30:00 EDT, Route to Pharmacy Electronically, [facility]/pharmacy #2339, 157, cm, 01/26/20 8:00:00 [...] 01/26/20 8:13:00 EDT, Route to Pharmacy Electronically, [facility] Start Date: 01/26/20 Stop Date: 02/25/20 Status: Ordered loperamide 2 mg oral capsule 4 mg, 2, capsule, By Mouth, 3 times a day before meals and bedtime, PRN, for 30 days, # 240 capsule, Refills 0, Tot. Refills 0, Acute 02/25/20 8:13:00 EDT, Loose Stool, 01/26/20 8:13:00 EDT, Route toPharmacy Electronically, [facility],... Start Date: 01/26/20 Stop Date: 02/25/20 [...] each, 0 Refills, Maintenance, 01/08/20 14:41:00 EDT, [facility]/pharmacy #2339, 158, cm, 12/31/19 [...] vaginal dryness(Confirmed) Active 1colo 2014; repeat 2020 74676; repeat 2017 Social History Social History Type Response Smoking Status Never smoker entered on: 09/20/16 Sex
--- OUTSIDE RECORDS SUMMARY | 2023-11-27 20:14 | XMS_ITS | Continuity of Care Document ---
Author Organization [facility] Milo Address [address] [place] [address]- Care Team Providers Care Senior Quality Methods Specialist Name Role Phone Yennifer OSORIO, Dwight Dunlap Primary Care Physician [phone] Encounter [facility] [place] Date(s): 11/10/19 - 11/17/19 [facility] Adult [address] [place] [address]- [place] Encounter Diagnosis Vertigo(Discharge Diagnosis) - 11/10/19 Clogged ear(Discharge Diagnosis) - 11/10/19 Attending Physician: Lisa Aguirre NP Allergies, Adverse [...] Replace Required Details, Route to Pharmacy Electronically, [facility]/pharmacy #[id number], 158, mikayla, 06/22/19 9:24:00 EST, H... Start Date: 07/13/19 Status: Ordered atorvastatin 40 mg oral tablet 1 tablet, By Mouth, Daily, # 30 tablet, 5 Refills, Maintenance, 07/23/19 14:20:00 EDT, [facility] STORE 91342, 158, cm, 06/22/19 9:24:00 EST, Height, 81.6, [...] 11/04/19 11:42:00 EDT, Route to Pharmacy Electronically, [facility]/pharmacy #[id number], 158, cm, 11/04/19 11:05:00 EDT, Height Start Date: 11/04/19 Status: Ordered fenofibrate 54 mg oral tablet 1 tablet, By Mouth, Daily, # 30 tablet, 5 Refills, Maintenance, 07/23/19 14:20:00 EDT, [facility], 158, cm, 06/22/19 9:24:00 EST, Height, 81.6, kg, 09/24/17 8:57:00 EDT, Dry Weight Start Date: 07/23/19 Status: Ordered fluticasone 27.5 mcg/inh nasal spray 1 sprays, Nares, Both, Daily, PRN for allergy symptoms, # 10 Gm, 1 Refills, Maintenance, 11/04/19 11:41:00 EDT, [place], [facility]/pharmacy #2339, 1 sprays Nares, Both Daily,PRN:for [...] EDT, Route to Pharmacy Electronically, [facility], 158, cm, 06/22/19 9:24:00 EST, Height, 81.6,kg, 09/24/17 8:57:00 EDT, Dry Weight Start Date: 07/23/19 Status: Ordered meclizine 25 mg oral tablet 1 tablet = 25 mg, By Mouth, 3 times a day, PRN for dizziness, # 30 tablet, 0 Refills, Maintenance, 11/10/19 10:36:00 EDT, Tablet, [facility]/pharmacy #2339, 158, cm, 11/10/19 9:31:00 EDT, Height Start Date: 11/10/19 Status: Ordered pregabalin 150 mg oral capsule 1 capsule = 150 mg, By Mouth, 2 times a day, # 180 capsule, 3 Refills, Maintenance, 10/16/19 16:18:00 EDT, Capsule, [facility]/pharmacy #2339, generic brand only, 158, cm, [...] Diagnosis Diagnosis Type Effective Dates Health Status Clini csotty Service Informant Vertigo Discharge Diagnosis 11/10/19 Clogged ear Discharge Diagnosis 11/10/19 Vital Signs Most recent to oldest [Reference Range]: 1 Height 158 cm (11/10/19 9:31 AM) Social History Social History Type Response Smoking Status Never smoker entered on: 09/20/16 Sex
--- OUTSIDE RECORDS SUMMARY | 2023-11-27 20:14 | XMS_ITS | Continuity of Care Document ---
Author Organization [facility] Milo lt Address [address] [place] [address]- Care Team Providers Care Photo Colorer Name Role Phone Yennifer OSORIO, Dwight Dunlap Primary Care Physician [phone] Encounter [facility] Date(s): 02/15/22 - 02/22/22 [facility] Adult [address] [place] [address]- Encounter Diagnosis Acute sinusitis(Discharge Diagnosis) - 02/15/22 Acute cough(Discharge Diagnosis) - 02/15/22 Attending Physician: Lisa Aguirre NP Allergies, Adverse Reactions, Alerts No Known Allergies [...] 12/30/19 Not Given Patient Refuses 1Result Comment: [id number] 2Admin Note: declined 3Admin Note: declined Medications atorvastatin 40 mg oral tablet 1 tablet, By Mouth, Daily, # 30 tablet, 5 Refills, Maintenance, 02/15/22 12:10:00 EDT, [facility], 157, cm, 02/15/22 10:32:00 EDT, Height Start Date: 02/15/22 Status: Ordered clobetasol 0.05% topical cream See Instructions, APPLY TO AFFECTED AREA TWICE A DAY, # 60 Gm, 0 Refills, Maintenance, 02/05/22 6:39:00 EDT, [facility], 60, APPLY TO AFFECTED AREA TWICE A DAY, 157, cm, 12/06/21 8:57:00 EDT, Height Start Date: 02/05/22 Status: Ordered codeine-guaifenesin 10 mg-100 mg/5 mL oral syrup 10 mL, By Mouth, Daily at bedtime, for 10 days, # 100 mL, 0 Refills, Acute 02/26/22 16:25:00 EDT, 02/16/22 16:25:00 EDT, Syrup, [facility]/pharmacy #2339, Partial fill upon patient request if the prescription is for a schedule II opioid drug., 10 mL By Mouth... Start Date: 02/16/22 Stop Date: 02/26/22 Status: Ordered fenofibrate 54 mg oral tablet 1 tablet, By Mouth, Daily, # 30 tablet, 5 Refills, Maintenance, 02/02/22 6:48:00 EDT, [facility], 157, cm, 12/06/21 8:57:00 EDT, Height Start Date: 02/02/22 Status: Ordered Humira See Instructions, 40 mg Subcutaneous Infusion Once every 15 days, 0 Refills, Maintenance, 06/20/12 10:48:17 EST Start Date: 06/20/12 Status: Ordered lisinopril 20 mg oral tablet 1, tablet, By Mouth, Daily, # 30 tablet, Refills 5, Maintenance, 02/02/22 6:49:00 EDT, Route to Pharmacy Electronically, [facility], 157, cm, 12/06/21 8:57:00 EDT, Height Start Date: 02/02/22 Status: Ordered mercaptopurine 50 mg oral tablet 2 tablet = 100 mg, By Mouth, Daily in AM, 0 Refills, Maintenance, 01/06/20 11:07:00 EDT Start Date: 01/06/20 Status: Ordered pregabalin 150 mg oral capsule 1 capsule = 150 mg, By Mouth, 2 times a day, # 60 capsule, 5 Refills, Maintenance, 10/30/21 8:55:00EDT, Capsule, [facility]/pharmacy #0678, generic brand only, 157, cm, 10/30/21 8:21:00 [...] 12/06/21 9:21:00 EDT, Route to Pharmacy Electronically, [facility]/pharmacy #2339, Partial fill upon patient request if the prescription is for a schedule II opioid drug.... Start Date: 12/06/21 Status: Ordered Zithromax 250 mg oral tablet 1 pack/packet, By Mouth, Once, # 6 tablet, 0 Refills, Soft Stop, 02/20/22 11:08:00 EDT, Tablet, [facility]/pharmacy #2339, Partial fill upon patient request [...] Dates Health Status Cl inical Service Informant Acute sinusitis Discharge Diagnosis 02/15/22 Acute cough Discharge Diagnosis 02/15/22 Vital Signs Most recent to oldest [Reference Range]: 1 Height 157 cm (02/15/22 10:32 AM) Social History Social History Type Response Smoking Status Never smoker entered on: 09/20/16 Sex Patient Care team information Personnel Name: Yennifer OSORIO, Dwight Dunlap Address: Address: [address] [place] [id number]
--- OUTSIDE RECORDS SUMMARY | 2023-11-27 20:15 | XMS_ITS | Continuity of Care Document ---
Author Organization [facility] Milo Address [address] [place] [address]- Care Team Providers Care Compensator Worker Name Role Phone Dwight De Oliveira MD Primary Care Physician [phone] [place] [facility] Date(s): 02/05/20 - 03/06/20 [facility] Adult [address] [place] [address]- [facility] Allergies, Adverse Reactions, Alerts Substance Reaction Severity [...] Replace Required Details, Route to Pharmacy Electronically, [facility]/pharmacy #2339, 158, cm, 12/31/19 4:02:00 EDT, He... Start Date: 01/12/20 Status: Ordered atorvastatin 40 mg oral tablet 1 tablet, By Mouth, Daily, # 30 tablet, 5 Refills, Maintenance, 02/05/20 11:40:00 EDT, [facility]/pharmacy#2339, 157, cm, 01/26/20 8:00:00 EDT, Height, 80.1, kg, 01/22/20 14:40:00 EDT, Dry Weight Start Date: 02/05/20 Status: Ordered fenofibrate 54 mg oral tablet 1 tablet, By Mouth, Daily, # 30 tablet, 5 Refills, Maintenance, 02/05/20 11:30:00 EDT, [facility]/pharmacy#2339, 157, cm, 01/26/20 8:00:00 EDT, Height, 80.1, kg, 01/22/20 14:40:00 EDT, Dry Weight Start Date: 02/05/20 Status: Ordered Flagyl 500 mg oral tablet 1 tablet = 500 mg, By Mouth, 3 times a day, # 30 tablet, 0 Refills, Maintenance, 01/26/20 8:16:00 EDT, [facility], 157, cm, 01/26/20 8:00:00 [...] 02/05/20 11:30:00 EDT, Route to Pharmacy Electronically, [facility]/pharmacy #2339, 157, cm, 01/26/20 8:00:00 EDT, Height, [...] each, 0 Refills, Maintenance, 01/08/20 14:41:00 EDT, [facility]/pharmacy #2339, 158, cm, 12/31/19 4:02:00 EDT, Height, [...] vaginal dryness(Confirmed) Active 1colo 2014; repeat 2020 88225; repeat 2017 Social History Social History Type Response Smoking Status Never smoker entered on: 09/20/16 Sex
--- OUTSIDE RECORDS SUMMARY | 2023-11-27 20:15 | XMS_ITS | Continuity of Care Document ---
Author Organization [facility] Milo lt Address [address] [place] [address]- Care Team Providers Care Awning Hanger Name Role Phone Dwight De Oliveira MD Primary Care Physician Encounter [facility] Date(s): 12/08/21 - 01/07/22 [facility] Adult [address] [place] [address]- Allergies, Adverse Reactions, Alerts No Known Allergies [...] 12/30/19 Not Given Patient Refuses 1Result Comment: [id number] 2Admin Note: declined 3Admin Note: declined Medications atorvastatin 40 mg oral tablet 1 tablet, By Mouth, Daily, # 30 tablet, 5 Refills, [facility] ST[facility] 07823, 157, cm, 06/07/21 8:43:00 EST, Height, 80.1, kg, 01/22/20 14:40:00 EDT, Dry Weight Start Date: 08/07/21 Status: Ordered clobetasol 0.05% topical cream 1 application, Topically, 2 times a day, # 60 Gm, 0 Refills, Maintenance, 08/30/21 16:43:00 EDT, Cream, [facility], Partial fill upon patient request if the prescription is for a schedule II opioid drug., 1 application Topically 2 times a day,... Start Date: 08/30/21 Status: Ordered fenofibrate 54 mg oral tablet 1 tablet, By Mouth, Daily, # 30 tablet, 5 Refills, [facility] STORE 77974, 157, cm, 06/07/21 8:43:00 EST, Height, 80.1, [...] Replace Required Details, Route to Pharmacy Electronically, [facility]/pharmacy #2339, 157, cm, 10/27/20 [...] capsule, 5 Refills, Maintenance, 10/30/21 8:55:00EDT, Capsule, [facility]/pharmacy #0693, generic brand only, [...] to Pharmacy Electronically, [facility]/pharmacy #5951, Partial fill upon patient request if the [...] vaginal dryness(Confirmed) Active 1colo 2014; repeat 2020 14193; repeat 2017 Social History Social History Type Response Smoking Status Never smoker entered on: 09/20/16 Sex Care Team Personnel Name: Yennifer OSORIO, Dwight Dunlap Address: [address] [place] [id number]
--- OUTSIDE RECORDS SUMMARY | 2023-11-27 20:15 | XMS_ITS | Continuity of Care Document ---
Author Organization [facility] Milo lt Address [address] [place] [address]- Care Team Providers Care Steamfitter Apprentice Name Role Phone Dwight De Oliveira MD Primary Care Physician [phone] En[place] [facility] [place] Date(s): 12/14/19 - 12/21/19 [facility] Adult [address] [place] [address]- [facility] Attending Physician: Roverto Farley MD Allergies, Adverse Reactions, Alerts Substance Reaction [...] Replace Required Details, Route to Pharmacy Electronically, [facility]/pharmacy #2339, 158, cm, 06/22/19 9:24:00 EST, H... Start Date: 07/13/19 Status: Ordered atorvastatin 40 mg oral tablet 1 tablet, By Mouth, Daily, # 30 tablet, 5 Refills, Maintenance, 07/23/19 14:20:00 EDT, [facility] STORE 60937, 158, cm, 06/22/19 9:24:00 EST, Height, 81.6, [...] 11/04/19 11:42:00 EDT, Route to Pharmacy Electronically, [facility]/pharmacy #2339, 158, cm, 11/04/19 11:05:00 EDT, Height Start Date: 11/04/19 Status: Ordered fenofibrate 54 mg oral tablet 1 tablet, By Mouth, Daily, # 30 tablet, 5 Refills, Maintenance, 07/23/19 14:20:00 EDT, [facility], 158, cm, 06/22/19 9:24:00 EST, Height, 81.6, [...] 07/23/19 14:20:00 EDT, Route to Pharmacy Electronically, [facility] 80448, 158, cm, 06/22/19 9:24:00 EST, Height, 81.6,kg, 09/24/17 8:57:00 EDT, Dry Weight Start Date: 07/23/19 Status: Ordered meclizine 25 mg oral tablet 1 tablet = 25 mg, By Mouth, 3 times a day, PRN for dizziness, # 30 tablet, 0 Refills, Maintenance, 11/10/19 10:36:00 EDT, Tablet, [facility]/pharmacy #2339, 158, cm, 11/10/19 9:31:00 EDT, Height Start Date: 11/10/19 Status: Ordered perphenazine 4 mg oral tablet 4 mg, 1, tablet, By Mouth, 3 times a day, # 30 tablet, Refills 0, Tot. Refills 0, Maintenance, 12/16/19 9:43:00 EDT, Route to Pharmacy Electronically, [facility]/pharmacy #2339, 158, cm, 12/14/19 8:31:00 EDT, Height Start Date: 12/16/19 Status: Ordered pregabalin 150 mg oral capsule 1 capsule = 150 mg, By Mouth, 2 times a day, # 180 capsule, 3 Refills, Maintenance, 10/16/19 16:18:00 EDT, Capsule, [facility]/pharmacy #2339, generic brand only, [...] syndrome)(Confirmed) Active Menopausal vaginal dryness(Confirmed) Active 1colo 2014 [address]3874; repeat 2020 64869; repeat 2017 Vital Signs Most recent to oldest [Reference Range]: 1 Height 158 cm (12/14/19 8:31 AM) Social History Social History Type Response Smoking Status Never smoker entered on: 09/20/16 Sex
--- OUTSIDE RECORDS SUMMARY | 2023-11-27 20:15 | XMS_ITS | Continuity of Care Document ---
Author Organization [facility] [place] Milo lt Address [address] [place] [address]- Care Team Providers Care Director Radio Name Role Phone Dwight De Oliveira MD Primary Care Physician [phone] Encounter [facility] Date(s): 03/16/20 - 04/15/20 [facility] [place] Adult [address] [place] [address]- Attending Physician: Admtr, Ar8 Allergies, Adverse Reactions, [...] Refills, Maintenance, 01/08/20 14:41:00 EDT, [facility]/pharmacy #2339, 158, cm, 12/31/19 [...] vaginal dryness(Confirmed) Active 1colo 2014; repeat 2020 54621; repeat 2017 Social History Social History Type Response Smoking Status Never smoker entered on: 09/20/16 Sex
--- OUTSIDE RECORDS SUMMARY | 2023-11-27 20:15 | XMS_ITS | Continuity of Care Document ---
Author Organization [facility] Milo lt Address [address] [place] [address]- Care Team Providers Care Residential Fee Appraiser Name Role Phone Dwight De Oliveira MD Primary Care Physician [phone] Encounter [facility] Date(s): 05/03/20 - 06/02/20 [facility] Adult [address] [place] [address]- Attending Physician: Admtr, Ar8 Allergies, Adverse Reactions, [...] Pharmacy Electronically, [facility]/pharmacy #2339, 158, cm, 12/31/19 4:02:00 EDT, He... Start Date: 01/12/20 Status: Ordered atorvastatin 40 mg oral tablet 1 tablet, By Mouth, Daily, # 30 tablet, 5 Refills, Maintenance, 02/05/20 11:40:00 EDT, [facility]/pharmacy#2339, 157, cm, 01/26/20 8:00:00 EDT, Height, 80.1, kg, 01/22/20 14:40:00 EDT, Dry Weight Start Date: 02/05/20 Status: Ordered fenofibrate 54 mg oral tablet 1 tablet, By Mouth, Daily, # 30 tablet, 5 Refills, Maintenance, 02/05/20 11:30:00 EDT, [facility]/pharmacy#2339, 157, cm, 01/26/20 8:00:00 EDT, Height, 80.1, kg, 01/22/20 14:40:00 EDT, Dry Weight Start Date: 02/05/20 Status: Ordered Flagyl 500 mg oral tablet 1 tablet = 500 mg, By Mouth, 3 times a day, # 30 tablet, 0 Refills, Maintenance, 01/26/20 8:16:00 EDT, [facility], 157, cm, 01/26/20 8:00:00 [...] [facility]/pharmacy #2339, 157, cm, 01/26/20 8:00:00 EDT, Height, [...] vaginal dryness(Confirmed) Active 1colo 2014; repeat 2020 49523; repeat 2017 Social History Social History Type Response Smoking Status Never smoker entered on: 09/20/16 Sex
--- OUTSIDE RECORDS SUMMARY | 2023-11-27 20:15 | XMS_ITS | Continuity of Care Document ---
Author Organization [facility] ter Address [address] [place] [address]- Care Team Providers Care Conduit Reamer Operator Name Role Phone Dwight De Oliveira MD Primary Care Physician [place] [facility] 12/28/19 - 12/31/[address] [address]- [facility] Encounter Diagnosis Small bowel obstruction(Final) - 12/28/19 Crohn's disease(Final) - 12/30/19 Discharge Disposition: A-D/C Home Attending Physician: Pietro Bueno MD Admitting Physician: Pietro Bueno MD Referring Physician: Not on Staff, Referring [...] Electronically, [facility]/pharmacy #2339, 158, cm, 06/22/19 9:24:00 EST, H... Start Date: 07/13/19 Status: Ordered atorvastatin 40 mg oral tablet 1 tablet, By Mouth, Daily, # 30 tablet, 5 Refills, Maintenance, 07/23/19 14:20:00 EDT, [facility], 158, cm, 06/22/19 9:24:00 EST, Height, 81.6, kg, 09/24/17 8:57:00 EDT, Dry Weight Start Date: 07/23/19 Status: Ordered azathioprine 50 mg oral tablet 2 tablet = 100 mg, By Mouth, 2 times a day, 10/23/06 11:55:47 Start Date: 10/23/06 Status: Ordered Claritin 10 mg oral tablet 10 mg, 1, tablet, By Mouth, Daily, # 30 tablet, Refills 1, Tot. Refills 1, Maintenance, 11/04/19 11:42:00 EDT, Route to Pharmacy Electronically, [facility]/pharmacy #2339, 158, cm, 11/04/19 11:05:00 EDT, Height Start Date: 11/04/19 Status: Ordered fenofibrate 54 mg oral tablet 1 tablet, By Mouth, Daily, # 30 tablet, 5 Refills, Maintenance, 07/23/19 14:20:00 EDT, [facility], 158, cm, 06/22/19 9:24:00 EST, Height, 81.6, [...] 07/23/19 14:20:00 EDT, Route to Pharmacy Electronically, [facility] 00896, 158, cm, 06/22/19 9:24:00 EST, Height, 81.6,kg, 09/24/17 8:57:00 EDT, Dry Weight Start Date: 07/23/19 Status: Ordered meclizine 25 mg oral tablet 1 tablet = 25 mg, By Mouth, 3 times a day, PRN for dizziness, # 30 tablet, 0 Refills, Maintenance, 11/10/19 10:36:00 EDT, Tablet, [facility]/pharmacy #2339, 158, cm, 11/10/19 9:31:00 EDT, Height Start Date: 11/10/19 Status: Ordered perphenazine 4 mg oral tablet 4 mg, 1, tablet, By Mouth, 3 times a day, # 30 tablet, Refills 0, Tot. Refills 0, Maintenance, 12/16/19 9:43:00 EDT, [facility], cm, 12/14/19 8:31:00 EDT, Height Start Date: 12/16/19 Status: Ordered pregabalin 150 mg oral capsule 1 capsule = 150 mg, By Mouth, 2 times a day, # 180 capsule, 3 Refills, Maintenance, 10/16/19 16:18:00 EDT, [facility]ule[facility] only, 158, cm, 06/22/19 [...] vaginal dryness(Confirmed) Active 1colo 201418; repeat 2020 02035; repeat 2017 Vital Signs Most recent to oldest [Reference Range]: 1 2 3 Height 158 cm (12/31/19 4:02 AM) 158 cm (12/31/19 12:22 AM) 158 cm (12/30/19 7:45 PM) Weight 80.8 kg (12/30/19 4:34 PM) 85 kg (12/30/19 8:31 AM) 85 kg (12/29/19 4:02 PM) Oxygen Saturation [94-100 %] 98 % (12/31/19 3:00 PM) 99 % (12/31/19 12:00 PM) 100 % (12/31/19 7:00 AM) Pulse Rate [55-90 bpm] 74 bpm (12/31/19 3:00 PM) 78 bpm (12/31/19 12:00 PM) 75 bpm (12/31/19 7:00 AM) Body Mass Index [18.5-24.99] 34.05 *>HHI* (12/30/19 8:31 AM) 34.05 *>HHI* (12/29/19 4:02 PM) 31.04 *>HHI* (12/29/19 12:34 PM) Blood Pressure [90-138/55-84 mm Hg] 126/74mm Hg (12/31/19 3:00 PM) 119/71mm Hg (12/31/19 12:00 PM) 126/79mm Hg (12/31/19 8:31 AM) Respiratory Rate [16-30 br/min] 18 br/min (12/31/19 3:00 PM) 18 br/min (12/31/19 12:00 PM) 18 br/min (12/31/19 7:00 AM) Temperature [96.8-100.4 DegF] 97.7 DegF (12/31/19 3:00 PM) 98.4 DegF (12/31/19 12:00 PM) 98.4 DegF (12/31/19 7:00 AM) Mode of Delivery (Oxygen) Room air (12/31/19 3:00 PM) Room air (12/31/19 12:00 PM) Room air (12/31/19 7:00 AM) Blood pressure sites Arm, right (12/31/19 3:00 PM) Arm, right (12/31/19 12:00 PM) Arm, right (12/31/19 7:00 AM) Temperature Route Oral (12/31/19 3:00 PM) Oral (12/31/19 12:00 PM) Oral (12/31/19 7:00 AM) Dry Weight 85 kg (12/29/19 4:02 PM) 77.5 kg (12/29/19 12:34 PM) Weight Obtained Via Standing scale (12/30/19 4:34 PM) Bed scale (12/29/19 4:02 PM) Patient/family stated (12/29/19 12:34 PM) Dry Weight Obtained Via Bed scale (12/29/19 4:02 PM) Patient/family stated (12/29/19 12:34 PM) Social History Social History Type Response Smoking Status Never smoker entered on: 09/20/16 Sex
--- OUTSIDE RECORDS SUMMARY | 2023-11-27 20:15 | XMS_ITS | Continuity of Care Document ---
Author Organization [facility] Milo lt Address [address] [place] [address]- Care Team Providers Care Food Stylist Name Role Phone Dwight De Oliveira MD Primary Care Physician [phone] Encounter [facility] [place](s): 10/17/22 - 10/24/22 [facility] Adult [address] [place] [address]- Encounter Diagnosis CC (Crohn's colitis)(Discharge Diagnosis) - 10/17/22 Attending Physician: Dwight De Oliveira MD Allergies, [...] 12/30/19 Not Given Patient Refuses 1Result Comment: [id number] 2Admin Note: declined 3Admin Note: declined Medications atorvastatin 40 mg oral tablet 1 tablet, By Mouth, Daily, # 90 tablet, 1 Refills, Maintenance, 10/24/22 10:14:00 EDT, [facility] #[id number], 157, cm, 10/17/22 7:48:00 EDT, Height Start Date: 10/24/22 Status: Ordered Clobetasol (Eqv-Temovate) 0.05% topical cream See Instructions, APPLY TO AFFECTED AREA TWICE A DAY, # 60 Gm, 0 Refills, Maintenance, 06/22/22 11:25:00 EST, [id number], 30, APPLY TO AFFECTED AREA TWICE A DAY, 157, cm, 02/15/22 10:32:00 EDT, Height Start Date: 06/22/22 Status: Ordered fenofibrate 54 mg oral tablet 1 tablet, By Mouth, Daily, # 90 tablet, 1 Refills, Maintenance, 10/24/22 10:14:00 EDT, [facility] #[id number], 157, cm, 10/17/22 7:48:00 EDT, Height Start Date: 10/24/22 Status: Ordered lisinopril 20 mg oral tablet 1, tablet, By Mouth, Daily, # 90 tablet, Refills 0, Tot. Refills 0, Maintenance, 08/01/22 15:19:00 EDT, Route to Pharmacy Electronically, [facility] #[id number], 157, cm, 02/15/22 10:32:00 EDT, Height Start Date: 08/01/22 Status: Ordered mercaptopurine 50 mg oral tablet 2 tablet = 100 mg, By Mouth, Daily in AM, 0 Refills, Maintenance, 01/06/20 11:07:00 EDT Start Date: 01/06/20 Status: Ordered pregabalin 150 mg oral capsule 1 capsule = 150 mg, By Mouth, 2 times a day, # 60 capsule, 5 Refills, Maintenance, 08/02/22 8:50:00EDT, Capsule, [facility] #[id number], generic brand only, 157, cm, 02/15/22 10:32:00 [...] 12/06/21 9:21:00 EDT, Route to Pharmacy Electronically, [facility]/pharmacy #[id number], Partial fill upon patient request if the [...] dryness Confirmed Active 1colo 2014; repeat 2020 56394; repeat 2017 Diagnosis Diagnosis Type Effective Dates Health Status Cl inical Service Informant CC (Crohn's colitis) Discharge Diagnosis 10/17/22 Vital Signs Most recent to oldest [Reference Range]: 1 Height 157 cm (10/17/22 7:48 AM) Weight 79.1 kg (10/17/22 7:48 AM) Oxygen Saturation [94-100 %] 99 % (10/17/22 7:48 AM) Pulse Rate [55-90 bpm] 79 bpm (10/17/22 7:48 AM) Body Mass Index [18.5-24.99 kg/m2] 32.09 kg/m2 *>HHI* (10/17/22 7:48 AM) Blood Pressure [90-138/55-84 mm Hg] 122/ 86mm Hg (10/17/22 7:48 AM) Mode of Delivery (Oxygen) Room air (10/17/22 7:48 AM) Blood pressure sites Arm, left (10/17/22 7:48 AM) Social History Social History Type Response Smoking Status Never smoker entered on: 09/20/16 Sex Note * Maria Teresa Turcios: PERFORM, SIGN, VERIFY Event Display: Patient Education/Instruction Authored Date: [id number] [facility] *BMP Angela Reyes Clinical Summary Name ROMERO CRENSHAW Age 52 Years 1970 PCP Dwight De Oliveira MD PCP Visit Date 10/17/2022 07:42:00 Additional Instructions: Scheduled Appointments?? Future Appointments ?No Future Appointments Scheduled Follow-Up Instructions ?? With: Address: When: Dwight De Oliveira MD In 6 months Comments: Physical examination Diagnosis Essential (primary) hypertension; Fibromyalgia; Pure hypercholesterolemia, unspecified; Crohn's disease of large intestine without complications Medications: Please continue your medications until treatment is completed or stopped by your provider. Discuss any questions related to medications with your provider. Medications to Continue with No Changes These medications were not printed or sent to your pharmacy Atorvastatin (atorvastatin 40 mg oral tablet) 1 tab(s) Oral Daily. Refills: 0. Next Dose: Clobetasol Topical (Clobetasol (Eqv-Temovate) 0.05% topical cream) APPLY TO AFFECTED AREA TWICE A DAY. Refills: 0. Next Dose: Fenofibrate (fenofibrate 54 mg oral tablet) 1 tab(s) Oral Daily. Refills: 0. Next Dose: Lisinopril (lisinopril 20 mg oral tablet) 1 tab(s) Oral Daily. Refills: 0. Next Dose: Mercaptopurine (mercaptopurine 50 mg oral [...] for 30 Days. Refills: 5. Next Dose: No Longer Take the Following Medications Adalimumab (Humira) 40 mg Subcutaneous Infusion Once every 15 days. Allergy Info:?? NKA Medications Given This Visit Future Orders ?Thyroid Panel? Order Date:10/17/22?- Complete on or after?10/17/22 ?Lipid Panel? Order Date:10/17/22?- Complete on or after?10/17/22 ?Comprehensive Metabolic Panel? Order Date:10/17/22?- Complete on or after?10/17/22 ?CBC? Order Date:10/17/22?- Complete on or after?10/17/22 Vital Signs Height 157 cm Weight 79.1 kg BMI 32.09 kg/m2 Blood Pressure 122 mm Hg/86 mm Hg Temperature Pulse Rate 79 bpm Respiratory Rate 02 Sat Mode of Delivery 99 %/Room air You can now view a summary of your hospital visit from the comfort of your home through a free online portal called [facility]. [employer] is a website that allows you to securely view your medical information including discharge summary, medications and follow-up visits. ??You can alsosend a secure electronic message to your doctor???s office to request appointments, renew medications or just ask a question. You can enroll at [email or web address] or register during your next office visit. [...] primary care provider, you may find a [facility] provider by calling [facility] [employer] Link at [phone]. For information about the plan of care [...] Team Personnel Name: Anderson Best RN Position: [facility] RN Member Role: Primary Care Nurse Name: Dwight De Oliveira MD Position: [facility] Physician - Primary Care Member Role: PCP Address: Address: [address] [place] [id number] Name: Anette Boyce RN Position: S RN Member Role: Primary Care Nurse Name: Afia Hughes RN Position: S RN Member Role: Primary Care Nurse Name: Tomer Merino RN Position: S RN Member Role: Primary Care Nurse Care Team Related Persons Name: DAVIDAngelaVICTOR MANUEL ROSE Address: [address] [address]
--- OUTSIDE RECORDS SUMMARY | 2023-11-27 20:15 | XMS_ITS | Continuity of Care Document ---
Author Organization [facility] Address [address] [place] [address] [address] [place] [address]- Care Team Providers Care Gamewell Operator Name Role Phone Dwight De Oliveira MD Primary Care Physician Encounter [facility] [place] Date(s): 01/26/20 - 02/25/[address] [place] [address]- [facility] Allergies, Adverse Reactions, Alerts Substance Reaction [...] Replace Required Details, Route to Pharmacy Electronically, [facility]/pharmacy #[id number], 158, cm, 12/31/19 4:02:00 EDT, He... Start Date: 01/12/20 Status: Ordered atorvastatin 40 mg oral tablet 1 tablet, By Mouth, Daily, # 30 tablet, 5 Refills, Maintenance, 02/05/20 11:40:00 EDT, [facility]/pharmacy#2339, 157, cm, 01/26/20 8:00:00 EDT, Height, 80.1, kg, 01/22/20 14:40:00 EDT, Dry Weight Start Date: 02/05/20 Status: Ordered fenofibrate 54 mg oral tablet 1 tablet, By Mouth, Daily, # 30 tablet, 5 Refills, Maintenance, 02/05/20 11:30:00 EDT, [facility]/pharmacy#2339, 157, cm, 01/26/20 8:00:00 EDT, Height, 80.1, kg, 01/22/20 14:40:00 EDT, Dry Weight Start Date: 02/05/20 Status: Ordered Flagyl 500 mg oral tablet 1 tablet = 500 mg, By Mouth, 3 times a day, # 30 tablet, 0 Refills, Maintenance, 01/26/20 8:16:00 EDT, [facility], 157, cm, 01/26/20 [...] 02/28/20 14:40:00 EDT, 02/18/20 14:40:00 EDT, Capsule, [facility]/pharmacy #[id number], 157, cm, 02/17/20 14:14:00 EDT, Height, 80.1, kg, 01/22/20 14:40:00 EDT, Dry Weight Start Date: 02/18/20 Stop Date: 02/28/20 Status: Ordered lisinopril 20 mg oral tablet 1, tablet, By Mouth, Daily, # 30 tablet, Refills 5, Tot. Refills 5, Maintenance, 02/05/20 11:30:00 EDT, Route to Pharmacy Electronically, [facility]/pharmacy #[id number], 157, cm, 01/26/20 8:00:00 EDT, Height, [...]
--- OUTSIDE RECORDS SUMMARY | 2023-11-27 20:15 | XMS_ITS | Continuity of Care Document ---
Author Organization [facility] Milo lt Address [address] [place] [address]- Care Team Providers Care Journalists And Other Writers Name Role Phone Dwight De Oliveira MD Primary Care Physician [place] [facility] [place]16[place]21 - 07/16/21 [facility] Adult [address] [place] [address]- Allergies, Adverse Reactions, Alerts No Known Allergies [...] 12/30/19 Not Given Patient Refuses 1Result Comment: [id number] 2Admin Note: declined 3Admin Note: declined Medications amLODIPine 5 mg oral tablet 1 tablet, By Mouth, Daily, # 30 tablet, 5 Refills, [facility] [id number], 157, cm, 06/07/21 8:43:00 EST, Height, 80.1, [...] tablet, 5 Refills, Maintenance, 02/14/21 8:04:00 EDT, [facility]/pharmacy #2339, 157, cm, 10/27/20 10:35:00 EDT, [...] [facility]/pharmacy #2339, 157, cm, 10/27/20 [...] 5 Refills, Maintenance, 05/31/21 11:19:00 EST, Capsule, [facility]/pharmacy #[id number], generic brand only, [...] vaginal dryness(Confirmed) Active 1colo 2014; repeat 2020 15259; repeat 2017 Social History Social History Type Response Smoking Status Never smoker entered on: 09/20/16 Sex
--- OUTSIDE RECORDS SUMMARY | 2023-11-27 20:15 | XMS_ITS | Continuity of Care Document ---
Author Organization [facility] Milo lt Address [address] [place] [address]- Care Team Providers Care Bell Ringer Name Role Phone Dwight De Oliveira MD Primary Care Physician Encounter [facility] [place] Date(s): 08/02/20 - 09/01/20 [facility] Adult [address] [place] [address]- Allergies, Adverse Reactions, Alerts Substance Reaction Severity [...] Required Details, Route to Pharmacy Electronically, [facility]/pharmacy #[id number], 157, cm, 05/03/20 6:52:00 EST, He... Start Date: 07/19/20 Status: Ordered atorvastatin 40 mg oral tablet 1 tablet, By Mouth, Daily, # 30 tablet, 5 Refills, Maintenance, 08/02/20 15:10:00 EDT, [facility]/pharmacy#2339, 157, cm, 05/03/20 6:52:00 EST, Height, 80.1, kg, 01/22/20 14:40:00 EDT, Dry Weight Start Date: 08/02/20 Status: Ordered codeine-guaifenesin 10 mg-100 mg/5 mL oral syrup 10 mL, By Mouth, Daily at bedtime, PRN for cough, for 7 days, # 70 mL, 0 Refills, Acute 09/05/20 16:07:00 EDT, 08/29/20 16:07:00 EDT, Syrup, [facility]/pharmacy #[id number], Partial fill upon patient request if the prescription is for a schedule II opioid drug., 1... Start Date: 08/29/20 Stop Date: 09/05/20 Status: Ordered fenofibrate 54 mg oral tablet 1 tablet, By Mouth, Daily, # 30 tablet, 5 Refills, Maintenance, 08/02/20 15:13:00 EDT, [facility]/pharmacy#2339, 157, cm, 05/03/20 6:52:00 EST, Height, 80.1, kg, 01/22/20 14:40:00 EDT, Dry Weight Start Date: 08/02/20 Status: Ordered Flagyl 500 mg oral tablet 1 tablet = 500 mg, By Mouth, 3 times a day, # 30 tablet, 0 Refills, Maintenance, 01/26/20 8:16:00 EDT, [facility], 157, cm, 01/26/20 8:00:00 EDT, Height, [...] 08/02/20 15:13:00 EDT, Route to Pharmacy Electronically, [facility]/pharmacy #[id number], 157, cm, 05/03/20 6:52:00 EST, Height, [...] 0 Refills, Maintenance, 01/08/20 14:41:00 EDT, [facility]/pharmacy #[id number], 158, cm, 12/31/19 4:02:00 EDT, Height, 85, kg, 12/29/19 16:02:0... Start Date: 01/08/20 Status: Ordered pregabalin 150 mg oral capsule 1 capsule = 150 mg, By Mouth, 2 times a day, for 30 days, # 60 capsule, 5 Refills, Hard Stop 11/30/20 14:28:00 EDT, 06/03/20 14:28:00 EST, Capsule, [facility]/pharmacy #2339, generic brand only, 157, cm, 05/03/20 6:52:00 EST, Height, 80.1, kg, 01/22/20 14:40... Start Date: 06/03/20 Stop Date: 11/30/20 Status: Ordered pregabalin 150 mg oral capsule 1 capsule = 150 mg, By Mouth, 2 times a day, # 60 capsule, 5 Refills, Maintenance, 06/03/20 16:22:00 EST, Capsule, [facility]/pharmacy #[id number], generic brand only, 157, [...] 17:39:00 EDT, Aerosol, Route to Pharmacy Electronically, [id number], [facility]/pharmacy #[id number], 157, cm, 09/01/20 17:23:00 EDT, Hei... Start Date: 09/01/20 Stop Date: 09/08/20 Status: Ordered Tessalon Perles 100 mg oral capsule 1 capsule = 100 mg, By Mouth, 3 times a day, for 7 days, do not crush or chew for cough, # 21 capsule, 0 Refills, Acute 09/08/20 17:40:00 EDT, 09/01/20 17:40:00 EDT, Capsule, [facility]/pharmacy #[id number], Partial fill upon patient request if the [...]
--- OUTSIDE RECORDS SUMMARY | 2023-11-27 20:15 | XMS_ITS | Continuity of Care Document ---
Author Organization [facility] Milo lt Address [address] [place] [address]- Care Team Providers Care Technology Education Teacher Name Role Phone Dwight De Oliveira MD Primary Care Physician Encounter [facility] [place] Date(s): 07/26/22 - 08/25/22 [facility] Adult [address] [place] [address]- Allergies, Adverse Reactions, Alerts No Known Allergies [...] 12/30/19 Not Given Patient Refuses 1Result Comment: [id number] 2Admin Note: declined 3Admin Note: declined Medications atorvastatin 40 mg oral tablet 1 tablet, By Mouth, Daily, # 90 tablet, 0 Refills, Maintenance, 08/01/22 15:19:00 EDT, [facility] #[id number], 157, cm, 02/15/22 10:32:00 EDT, Height Start Date: 08/01/22 Status: Ordered Clobetasol (Eqv-Temovate) 0.05% topical cream See Instructions, APPLY TO AFFECTED AREA TWICE A DAY, # 60 Gm, 0 Refills, Maintenance, 06/22/22 11:25:00 EST, [facility], 30, APPLY TO AFFECTED AREA TWICE A DAY, 157, cm, 02/15/22 10:32:00 EDT, Height Start Date: 06/22/22 Status: Ordered fenofibrate 54 mg oral tablet 1 tablet, By Mouth, Daily, # 90 tablet, 0 Refills, Maintenance, 08/01/22 15:19:00 EDT, [facility] #20585, 157, cm, 02/15/22 10:32:00 EDT, Height Start Date: 08/01/22 Status: Ordered Humira See Instructions, 40 mg Subcutaneous Infusion Once every 15 days, 0 Refills, Maintenance, 06/20/12 10:48:17 EST Start Date: 06/20/12 Status: Ordered lisinopril 20 mg oral tablet 1, tablet, By Mouth, Daily, # 90 tablet, Refills 0, Tot. Refills 0, Maintenance, 08/01/22 15:19:00 EDT, [id number], 157, cm, 02/15/22 10:32:00 EDT, Height Start Date: 08/01/22 Status: Ordered mercaptopurine 50 mg oral tablet 2 tablet = 100 mg, By Mouth, Daily in AM, 0 Refills, Maintenance, 01/06/20 11:07:00 EDT Start Date: 01/06/20 Status: Ordered pregabalin 150 mg oral capsule 1 capsule = 150 mg, By Mouth, 2 times a day, # 60 capsule, 5 Refills, Maintenance, 08/02/22 8:50:00EDT, Capsule, [facility] #[id number], generic brand only, 157, cm, 02/15/22 10:32:00 [...] 9:21:00 EDT, Route to Pharmacy Electronically, [facility]/pharmacy #[id number], Partial fill upon patient request if the [...] Team Personnel Name: Anderson Best RN Position: [facility] RN Member Role: Primary Care Nurse Name: Dwight De Oliveira MD Position: [facility] Primary Care Physician Member Role: PCP Address: Address: [address] [place] [address]- Name: Anette Boyce RN Position: S RN Member Role: Primary Care Nurse Name: Afia Hughes RN Position: S RN Member Role: Primary Care Nurse Name: Tomer Merino RN Position: S RN Member Role: Primary Care Nurse Care Team Related Persons Name: ROSE CRENSHAW Address: [address] [address]
--- OUTSIDE RECORDS SUMMARY | 2023-11-27 20:15 | XMS_ITS | Continuity of Care Document ---
Author Organization [facility] Milo lt Address [address] [place] [address]- Care Team Providers Care Jewelry Inspector Name Role Phone Dwight De Oliveira MD Primary Care Physician Encounter [facility] [place] Date(s): 05/13/23 - 06/12/23 [facility] Adult [address] [place] [address]- Allergies, Adverse Reactions, Alerts No Known Allergies Immunizations Given and Recorded Vaccine Date Status Refusal Reason SARS-CoV-2 (COVID-19) Ad26 vaccine 1 10/27/20 Give n Influenza Virus Vaccine (oldterm) 2 01/31/17 Given tetanus/diphtheria/pertussis, acel(Tdap) 09/20/16 Given tetanus-diphtheria toxoids (Td) 3 01/20/05 Given 1Result Comment: [id number] 2Admin Note: declined 3Admin Note: declined Medications atorvastatin 40 mg oral tablet 1 tablet, By Mouth, Daily, # 90 tablet, 1 Refills, Maintenance, 05/13/23 9:00:00 [facility] #[id number], 157, cm, 10/17/22 7:48:00 EDT, Height Start Date: 05/13/23 Status: Ordered Clobetasol (Eqv-Temovate) 0.05% topical cream See Instructions, APPLY TO AFFECTED AREA TWICE A DAY, # 60 Gm, 0 Refills, Maintenance, 06/22/22 11:25:00 [facility] 415[facility], 30, APPLY TO AFFECTED AREA TWICE A DAY, 157, cm, 02/15/22 10:32:00 EDT, Height Start Date: 06/22/22 Status: Ordered fenofibrate 54 mg oral tablet 1 tablet, By Mouth, Daily, # 90 tablet, 1 Refills, Maintenance, 05/13/23 9:00:00 EST, [facility] #[id number], 157, cm, 10/17/22 7:48:00 EDT, Height Start Date: 05/13/23 Status: Ordered lisinopril 20 mg oral tablet 1, tablet, By Mouth, Daily, # 90 tablet, Refills 1, Tot. Refills 1, Maintenance, 02/13/23 8:15:00 EDT, [id number], 157, cm, 10/17/22 7:48:00 EDT, Height Start Date: 02/13/23 Status: Ordered mercaptopurine 50 mg oral tablet 2 tablet = 100 mg, By Mouth, Daily in AM, 0 Refills, Maintenance, 01/06/20 11:07:00 EDT Start Date: 01/06/20 Status: Ordered pregabalin 150 mg oral capsule 1 capsule = 150 mg, By Mouth, 2 times a day, # 60 capsule, 5 Refills, Maintenance, 12/31/22 10:09:00 EDT, Capsule, [facility] #71581, generic brand only, 157, cm, 10/17/22 7:48:00 [...] 12/06/21 9:21:00 EDT, Route to Pharmacy Electronically, [facility]/pharmacy #0004, Partial fill upon patient request if the [...] Personnel Name: Yennifer OSORIO, Dwight Dunlap Position: [facility] Physician - Primary Care Member Role: PCP Address: Address: [address] [place] [address]- Name: Anette Boyce RN Position: [facility] Nurse Member Role: Primary Care Nurse Name: Afia Hughes RN Position: [facility] RN Member Role: Primary Care Nurse Name: Tomer Merino RN Position: [facility] RN Member Role: Primary Care Nurse Care Team Related Persons Name: ROSE CRENSHAW Address: [address] [address]
--- OUTSIDE RECORDS SUMMARY | 2023-11-27 20:15 | XMS_ITS | Continuity of Care Document ---
Author Organization [facility] Milo Address [address] [place] [address]- Care Team Providers Care Journal Box Inspector Name Role Phone Dwight De Oliveira MD Primary Care Physician Encounter [facility] [place] [place] Date(s): 01/07/20 - 02/06/20 [facility] Adult [address] [place] [address]- [facility] Allergies, Adverse Reactions, Alerts Substance Reaction [...] Replace Required Details, Route to Pharmacy Electronically, [facility]/pharmacy #[id number], 158, cm, 12/31/19 4:02:00 EDT, He... Start Date: 01/12/20 Status: Ordered atorvastatin 40 mg oral tablet 1 tablet, By Mouth, Daily, # 30 tablet, 5 Refills, Maintenance, 02/05/20 11:40:00 EDT, [facility]/pharmacy#2339, 157, cm, 01/26/20 8:00:00 EDT, Height, 80.1, kg, 01/22/20 14:40:00 EDT, Dry Weight Start Date: 02/05/20 Status: Ordered fenofibrate 54 mg oral tablet 1 tablet, By Mouth, Daily, # 30 tablet, 5 Refills, Maintenance, 02/05/20 11:30:00 EDT, [facility]/pharmacy#2339, 157, cm, 01/26/20 8:00:00 EDT, Height, 80.1, kg, 01/22/20 14:40:00 EDT, Dry Weight Start Date: 02/05/20 Status: Ordered Flagyl 500 mg oral tablet 1 tablet = 500 mg, By Mouth, 3 times a day, # 30 tablet, 0 Refills, Maintenance, 01/26/20 8:16:00 EDT, [facility], 157, cm, 01/26/20 8:00:00 [...] 02/05/20 11:30:00 EDT, [id number] 157, cm, 01/26/20 8:00:00 EDT, Height, [...] 01/26/20 8:13:00 EDT, Route to Pharmacy Electronically, [facility] Start Date: 01/26/20 Stop Date: 02/25/20 Status: Ordered loperamide 2 mg oral capsule 4 mg, 2, capsule, By Mouth, 3 times a day before meals and bedtime, PRN, for 30 days, # 240 capsule, Refills 0, Tot. Refills 0, Acute 02/25/20 8:13:00 EDT, [facility], 01/26/20 8:13:00 EDT, Route toPharmacy Electronically, [facility],... Start Date: 01/26/20 Stop [...]
--- OUTSIDE RECORDS SUMMARY | 2023-11-27 20:15 | XMS_ITS | Continuity of Care Document ---
Author Organization [facility] Address [address] [place] [address]- Care Team Providers Care Bdc Manager Name Role Phone Yennifer OSORIO, Dwight Dunlap Primary Care Physician En[place] [facility] [place] 09/01/20 - 09/08/20 [facility] [address], [place] [address] Attending Physician: Theodore Souza MD Referring Physician: Dwight D eOliveira MD Allergies, Adverse Reactions, Alerts Substance Reaction [...] Required Details, Route to Pharmacy Electronically, [facility]/pharmacy #[id number], 157, cm, 05/03/20 6:52:00 EST, He... Start Date: 07/19/20 Status: Ordered atorvastatin 40 mg oral tablet 1 tablet, By Mouth, Daily, # 30 tablet, 5 Refills, Maintenance, 08/02/20 15:10:00 EDT, [facility]/pharmacy#2339, 157, cm, 05/03/20 6:52:00 EST, Height, 80.1, kg, 01/22/20 14:40:00 EDT, Dry Weight Start Date: 08/02/20 Status: Ordered codeine-guaifenesin 10 mg-100 mg/5 mL oral syrup 10 mL, By Mouth, Daily at bedtime, for 10 days, # 100 mL, 0 Refills, Acute 09/17/20 16:13:00 EDT, 09/07/20 16:13:00 EDT, Syrup, [facility]/pharmacy #[id number], Partial fill upon patient request if the prescription is for a schedule II opioid drug., 10 mL By Mouth... Start Date: 09/07/20 Stop Date: 09/17/20 Status: Ordered fenofibrate 54 mg oral tablet 1 tablet, By Mouth, Daily, # 30 tablet, 5 Refills, Maintenance, 08/02/20 15:13:00 EDT, [facility]/pharmacy#2339, 157, cm, 05/03/20 6:52:00 EST, Height, 80.1, kg, 01/22/20 14:40:00 EDT, Dry Weight Start Date: 08/02/20 Status: Ordered Flagyl 500 mg oral tablet 1 tablet = 500 mg, By Mouth, 3 times a day, # 30 tablet, 0 Refills, Maintenance, 01/26/20 8:16:00 EDT, [facility], 157, cm, 01/26/20 8:00:00 [...] 08/02/20 15:13:00 EDT, Route to Pharmacy Electronically, [facility]/pharmacy #[id number], 157, cm, 05/03/20 6:52:00 EST, Height, [...] 0 Refills, Maintenance, 01/08/20 14:41:00 EDT, [facility]/pharmacy #[id number], 158, cm, 12/31/19 4:02:00 EDT, Height, 85, kg, 12/29/19 16:02:0... Start Date: 01/08/20 Status: Ordered pregabalin 150 mg oral capsule 1 capsule = 150 mg, By Mouth, 2 times a day, for 30 days, # 60 capsule, 5 Refills, Hard Stop 11/30/20 14:28:00 EDT, 06/03/20 14:28:00 EST, Capsule, [facility]/pharmacy #2339, generic brand only, 157, cm, 05/03/20 6:52:00 EST, Height, 80.1, kg, 01/22/20 14:40... Start Date: 06/03/20 Stop Date: 11/30/20 Status: Ordered pregabalin 150 mg oral capsule 1 capsule = 150 mg, By Mouth, 2 times a day, # 60 capsule, 5 Refills, Maintenance, 06/03/20 16:22:00 EST, Capsule, [facility]/pharmacy #[id number], generic brand only, 157, cm, 05/03/20 [...] 17:39:00 EDT, Aerosol, Route to Pharmacy Electronically, [id number], [facility]/pharmacy #[id number], 157, cm, 09/01/20 17:23:00 EDT, [...] vaginal dryness(Confirmed) Active 1colo 2014; repeat 2020 38738; repeat 2017 Vital Signs Most recent to oldest [Reference Range]: 1 Height 157 cm (09/01/20 5:23 PM) Oxygen Saturation [94-100 %] 99 % (09/01/20 5:23 PM) Pulse Rate [55-90 bpm] 95 bpm *H* (09/01/20 5:23 PM) Blood Pressure [90-138/55-84 mm Hg] 148/ 64mm Hg *H* (09/01/20 5:23 PM) Respiratory Rate [16-30 br/min] 24 br/mi n (09/01/20 5:23 PM) Temperature [96.8-100.4 DegF] 97.5 DegF (09/01/20 5:23 PM) Mode of Delivery (Oxygen) Room air (09/01/20 5:23 PM) Blood pressure sites Arm, left (09/01/20 5:23 PM) Temperature Route Temporal (09/01/20 5:23 PM) Social History Social History Type Response Smoking Status Never smoker entered on: 09/20/16 Sex
--- OUTSIDE RECORDS SUMMARY | 2023-11-27 20:15 | XMS_ITS | Continuity of Care Document ---
Author Organization [facility] Address [address] [place] [address]- Care Team Providers Care Hygiene Teacher Name Role Phone Dwight De Oliveira MD Primary Care Physician [phone] Encounter [facility] [place] Date(s): 12/06/21 - 01/05/22 [facility] Adult [address] [place] [address]- Allergies, Adverse Reactions, Alerts No Known Allergies [...] 12/30/19 Not Given Patient Refuses 1Result Comment: [id number] 2Admin Note: declined 3Admin Note: declined Medications atorvastatin 40 mg oral tablet 1 tablet, By Mouth, Daily, # 30 tablet, 5 Refills, [facility], 157, cm, 06/07/21 8:43:00 EST, Height, 80.1, kg, 01/22/20 14:40:00 EDT, Dry Weight Start Date: 08/07/21 Status: Ordered clobetasol 0.05% topical cream 1 application, Topically, 2 times a day, # 60 Gm, 0 Refills, Maintenance, 08/30/21 16:43:00 EDT, Cream, [facility], Partial fill upon patient request if the prescription is for a schedule II opioid drug., 1 application Topically 2 times a day,... Start Date: 08/30/21 Status: Ordered fenofibrate 54 mg oral tablet 1 tablet, By Mouth, Daily, # 30 tablet, 5 Refills, [facility], 157, cm, 06/07/21 8:43:00 EST, Height, 80.1, [...] capsule, 5 Refills, Maintenance, 10/30/21 8:55:00EDT, Capsule, [facility]/pharmacy #0693, generic brand only, [...] 12/06/21 9:21:00 EDT, Route to Pharmacy Electronically, [facility]/pharmacy #[id number], Partial fill upon patient request if the [...] vaginal dryness(Confirmed) Active 1colo 2014; repeat 2020 72169; repeat 2017 Social History Social History Type Response Smoking Status Never smoker entered on: 09/20/16 Sex Care Team Personnel Name: Yennifer OSORIO, Dwight Dunlap Address: [address] [place] [address]
--- OUTSIDE RECORDS SUMMARY | 2023-11-27 20:15 | XMS_ITS | Continuity of Care Document ---
Author Organization [facility] Address [address] [place] [address]- Care Team Providers Care Card Doffer Name Role Phone Dwight De Oliveira MD Primary Care Physician [phone] [place] [facility] [place] 09/10/19 - 01/08/20 [facility] Adult [address] [place] [address] [facility] Attending Physician: Dwight De Oliveira MD Allergies, [...] Required Details, Route to Pharmacy Electronically, [facility]/pharmacy #[id number], 158, cm, 06/22/19 9:24:00 EST, H... Start Date: 07/13/19 Status: Ordered atorvastatin 40 mg oral tablet 1 tablet, By Mouth, Daily, # 30 tablet, 5 Refills, Maintenance, 07/23/19 14:20:00 EDT, [facility], 158, cm, 06/22/19 9:24:00 EST, Height, 81.6, kg, 09/24/17 8:57:00 EDT, Dry Weight Start Date: 07/23/19 Status: Ordered fenofibrate 54 mg oral tablet 1 tablet, By Mouth, Daily, # 30 tablet, 5 Refills, Maintenance, 07/23/19 14:20:00 EDT, [facility] 7[facility], 158, cm, 06/22/19 9:24:00 EST, Height, 81.6, kg, 09/24/17 8:57:00 EDT, Dry Weight Start Date: 07/23/19 Status: Ordered Flagyl 500 mg oral tablet See Instructions, take 2 tabs with 2 tabs neomycin at 9:00PM and again at 11:00PM day before procedure., # 4 each, 0 Refills, Maintenance, 01/08/20 14:41:00 EDT, [facility]/pharmacy #2339, 158, cm, :02:00 EDT, Height, 85, [...] EDT, Route to Pharmacy Electronically, [facility], 158, cm, 06/22/19 9:24:00 EST, Height, 81.6,kg, 09/24/17 8:57:00 EDT, Dry Weight Start Date: 07/23/19 Status: Ordered Macrodantin macrocrystals 100 mg oral capsule 1 capsule = 100 mg, By Mouth, 2 times a day, for 5 days, # 10 capsule, 0 Refills, Acute 01/12/20 12:47:00 EDT, 01/07/20 12:47:00 EDT, [facility]/pharmacy #2339, 158, cm, 12/31/19 4:02:00 EDT, Height, 85, kg, 12/29/19 16:02:00 EDT, Dry Weight Start Date: 01/07/20 Stop Date: 01/12/20 Status: Ordered mercaptopurine 50 mg oral tablet 2 tablet = 100 mg, By Mouth, Daily, 0 Refills, Maintenance, 01/06/20 11:07:00 EDT Start Date: 01/06/20 Status: Ordered neomycin 500 mg oral tablet See Instructions, take 2 tabs with 2 tabs Metronidazole at 9:00PM and again at 11:00PM day before procedure., # 4 each, 0 Refills, Maintenance, 01/08/20 14:41:00 EDT, [facility]/pharmacy #2339, 158, cm, 12/31/19 4:02:00 EDT, Height, 85, kg, 12/29/19 16:02:0... Start Date: 01/08/20 Status: Ordered perphenazine 4 mg oral tablet 4 mg, 1, tablet, By Mouth, 3 times a day, # 30 tablet, Refills 0, Tot. Refills 0, Maintenance, 12/16/19 9:43:00 EDT, Route to Pharmacy Electronically, [facility]/pharmacy #2339, 158, cm, 12/14/19 8:31:00 EDT, Height Start Date: 12/16/19 Status: Ordered pregabalin 150 mg oral capsule 1 capsule = 150 mg, By Mouth, 2 times a day, # 180 capsule, 3 Refills, Maintenance, 10/16/19 16:18:00 EDT, Capsule, [facility]/pharmacy #2339, generic brand only, 158, cm, 06/22/19 [...] vaginal dryness(Confirmed) Active 1colo 2014; repeat 2020 97326; repeat 2017 Social History Social History Type Response Smoking Status Never smoker entered on: 09/20/16 Sex
--- OUTSIDE RECORDS SUMMARY | 2023-11-27 20:15 | XMS_ITS | Continuity of Care Document ---
Author Organization [facility] Address [address] [place] [address] [address] [place] [address]- Care Team Providers Care Cook Night Name Role Phone Dwight De Oliveira MD Primary Care Physician En[place] [facility] [place](s): 02/17/20 - 02/24/[address] [place] [address]- [facility] Attending Physician: Pietro Bueno MD [...] Replace Required Details, Route to Pharmacy Electronically, [id number], 158, cm, 12/31/19 4:02:00 EDT, He... Start Date: 01/12/20 Status: Ordered atorvastatin 40 mg oral tablet 1 tablet, By Mouth, Daily, # 30 tablet, 5 Refills, Maintenance, 02/05/20 11:40:00 EDT, [facility], 157, cm, 01/26/20 8:00:00 EDT, Height, 80.1, kg, 01/22/20 14:40:00 EDT, Dry Weight Start Date: 02/05/20 Status: Ordered fenofibrate 54 mg oral tablet 1 tablet, By Mouth, Daily, # 30 tablet, 5 Refills, Maintenance, 02/05/20 11:30:00 EDT, [facility]/pharmacy#2339, 157, cm, 01/26/20 8:00:00 EDT, Height, 80.1, kg, 01/22/20 14:40:00 EDT, Dry Weight Start Date: 02/05/20 Status: Ordered Flagyl 500 mg oral tablet 1 tablet = 500 mg, By Mouth, 3 times a day, # 30 tablet, 0 Refills, Maintenance, 01/26/20 8:16:00 EDT, [facility], 157, cm, 01/26/20 8:00:00 [...] 02/28/20 14:40:00 EDT, 02/18/20 14:40:00 EDT, Capsule, [facility]/pharmacy #2339, 157, cm, 02/17/20 14:14:00 EDT, Height, 80.1, kg, 01/22/20 14:40:00 EDT, Dry Weight Start Date: 02/18/20 Stop Date: 02/28/20 Status: Ordered lisinopril 20 mg oral tablet 1, tablet, By Mouth, Daily, # 30 tablet, Refills 5, Tot. Refills 5, Maintenance, 02/05/20 11:30:00 EDT, Route to Pharmacy Electronically, [facility]/pharmacy #2339, 157, cm, 01/26/20 8:00:00 EDT, Height, [...] 01/26/20 8:13:00 EDT, Route to Pharmacy Electronically, [facility] Start Date: 01/26/20 Stop Date: 02/25/20 Status: Ordered loperamide 2 mg oral capsule 4 mg, 2, capsule, By Mouth, 3 times a day before meals and bedtime, PRN, for 30 days, # 240 capsule, Refills 0, Tot. Refills 0, Acute 02/25/20 8:13:00 EDT, Loose Stool, 01/26/20 8:13:00 EDT, Route toPharmacy Electronically, [facility],... Start Date: 01/26/20 Stop Date: 02/25/20 [...] each, 0 Refills, Maintenance, 01/08/20 14:41:00 EDT, [facility]/pharmacy #2339, 158, cm, 12/31/19 4:02:00 EDT, Height, [...] Active Menopausal vaginal dryness(Confirmed) Active 1colo 2014 97053; repeat 2020 43934; repeat 2017 Vital Signs Most recent to oldest [Reference Range]: 1 Height 157 cm (02/17/20 2:14 PM) Weight 76.5 kg (02/17/20 2:14 PM) Body Mass Index [18.5-24.99] 31.04 *>HHI* (02/17/20 2:14 PM) Social History Social History Type Response Smoking Status Never smoker entered on: 09/20/16 Sex
--- OUTSIDE RECORDS SUMMARY | 2023-11-27 20:15 | XMS_ITS | Continuity of Care Document ---
Author Organization [facility] Address [address] [place] [address]- Care Team Providers Care Java Software Developer Name Role Phone Dwight De Oliveira MD Primary Care Physician Encounter [facility] Date(s): 08/23/21 - 09/22/21 [facility] [address] [place] [address]- Allergies, Adverse Reactions, Alerts No Known Allergies [...] 12/30/19 Not Given Patient Refuses 1Result Comment: [id number] 2Admin Note: declined 3Admin Note: declined Medications amLODIPine 5 mg oral tablet 1 tablet, By Mouth, Daily, # 30 tablet, 5 Refills, [facility], 157, cm, 06/07/21 8:43:00 EST, Height, 80.1, kg, 01/22/20 14:40:00 EDT, Dry Weight Start Date: 06/18/21 Status: Ordered atorvastatin 40 mg oral tablet 1 tablet, By Mouth, Daily, # 30 tablet, 5 Refills, [facility] 911[facility], 157, cm, 06/07/21 8:43:00 EST, Height, 80.1, kg, 01/22/20 14:40:00 EDT, Dry Weight Start Date: 08/07/21 Status: Ordered clobetasol 0.05% topical cream 1 application, Topically, 2 times a day, # 60 Gm, 0 Refills, Maintenance, 08/30/21 16:43:00 EDT, Cream, [facility]/pharmacy #2339, Partial fill upon patient request if the prescription is for a schedule II opioid drug., 1 application Topically 2 times a day,... Start Date: 08/30/21 Status: Ordered fenofibrate 54 mg oral tablet 1 tablet, By Mouth, Daily, # 30 tablet, 5 Refills, [facility] 164[facility], 157, cm, 06/07/21 8:43:00 EST, Height, 80.1, [...] [facility], 157, cm, 10/27/20 10:35:00 [...] Refills, Maintenance, 05/31/21 11:19:00 EST, Capsule, [facility]/pharmacy #0693, generic brand only, 157, [...] vaginal dryness(Confirmed) Active 1colo 2014; repeat 2020 46933; repeat 2017 Social History Social History Type Response Smoking Status Never smoker entered on: 09/20/16 Sex
--- OUTSIDE RECORDS SUMMARY | 2023-11-27 20:15 | XMS_ITS | Continuity of Care Document ---
Author Organization [facility] Address [address] [place] [address]- Care Team Providers Care Student Teacher Name Role Phone Dwight De Oliveira MD Primary Care Physician [phone] Encounter [facility] [place] Date(s): 09/08/20 - 09/15/20 [facility] [address] [place] [address]- Attending Physician: Dwight De Oliveira MD Allergies, [...] Replace Required Details, Route to Pharmacy Electronically, [facility]/pharmacy #2339, 157, cm, 05/03/20 6:52:00 EST, He... Start Date: 07/19/20 Status: Ordered atorvastatin 40 mg oral tablet 1 tablet, By Mouth, Daily, # 30 tablet, 5 Refills, Maintenance, 08/02/20 15:10:00 EDT, [facility]/pharmacy#2339, 157, cm, 05/03/20 6:52:00 EST, Height, 80.1, kg, 01/22/20 14:40:00 EDT, Dry Weight Start Date: 08/02/20 Status: Ordered codeine-guaifenesin 10 mg-100 mg/5 mL oral syrup 10 mL, By Mouth, Daily at bedtime, for 10 days, # 100 mL, 0 Refills, Acute 09/17/20 16:13:00 EDT, 09/07/20 16:13:00 EDT, Syrup, [facility]/pharmacy #[id number], Partial fill upon patient request if the prescription is for a schedule II opioid drug., 10 mL By Mouth... Start Date: 09/07/20 Stop Date: 09/17/20 Status: Ordered fenofibrate 54 mg oral tablet 1 tablet, By Mouth, Daily, # 30 tablet, 5 Refills, Maintenance, 08/02/20 15:13:00 EDT, [facility]/pharmacy#2339, 157, cm, 05/03/20 6:52:00 EST, Height, 80.1, kg, 01/22/20 14:40:00 EDT, Dry Weight Start Date: 08/02/20 Status: Ordered Flagyl 500 mg oral tablet 1 tablet = 500 mg, By Mouth, 3 times a day, # 30 tablet, 0 Refills, Maintenance, 01/26/20 8:16:00 EDT, [facility], 157, cm, 01/26/20 8:00:00 EDT, Height, [...] 08/02/20 15:13:00 EDT, Route to Pharmacy Electronically, [facility]/pharmacy #2339, 157, cm, 05/03/20 6:52:00 EST, [...] each, 0 Refills, Maintenance, 01/08/20 14:41:00 EDT, [facility]/pharmacy #2339, 158, cm, 12/31/19 4:02:00 EDT, Height, 85, kg, 12/29/19 16:02:0... Start Date: 01/08/20 Status: Ordered pregabalin 150 mg oral capsule 1 capsule = 150 mg, By Mouth, 2 times a day, for 30 days, # 60 capsule, 5 Refills, Hard Stop 11/30/20 14:28:00 EDT, 06/03/20 14:28:00 EST, Capsule, [facility]/pharmacy #2339, generic brand only, 157, cm, 05/03/20 6:52:00 EST, Height, 80.1, kg, 01/22/20 14:40... Start Date: 06/03/20 Stop Date: 11/30/20 Status: Ordered pregabalin 150 mg oral capsule 1 capsule = 150 mg, By Mouth, 2 times a day, # 60 capsule, 5 Refills, Maintenance, 06/03/20 16:22:00 EST, Capsule, [facility]/pharmacy #0693, generic brand only, 157, cm, [...] 17:39:00 EDT, Aerosol, Route to Pharmacy Electronically, [id number], [facility]/pharmacy #2339, 157, cm, 09/01/20 17:23:00 EDT, [...] vaginal dryness(Confirmed) Active 1colo 2014; repeat 2020 60563; repeat 2017 Social History Social History Type Response Smoking Status Never smoker entered on: 09/20/16 Sex
--- OUTSIDE RECORDS SUMMARY | 2023-11-27 20:15 | XMS_ITS | Continuity of Care Document ---
Author Organization [facility] Address [address] [place] [address]- Care Team Providers Care Paint Specialist Name Role Phone Dwight De Oliveira MD Primary Care Physician [phone] Encounter [facility] [place] Date(s): 08/08/23 - 09/07/23 [facility] Adult [address] [place] [address]- Allergies, Adverse Reactions, Alerts No Known Allergies Immunizations Given and Recorded Vaccine Date Status Refusal Reason SARS-CoV-2 (COVID-19) Ad26 vaccine 1 10/27/20 Give n Influenza Virus Vaccine (oldterm) 2 01/31/17 Given tetanus/diphtheria/pertussis, acel(Tdap) 09/20/16 Given tetanus-diphtheria toxoids (Td) 3 01/20/05 Given 1Result Comment: [id number] 2Admin Note: declined 3Admin Note: declined Medications atorvastatin 40 mg oral tablet 1 tablet, By Mouth, Daily, # 90 tablet, 1 Refills, Maintenance, 05/13/23 9:00:00 [id number], 157, cm, 10/17/22 7:48:00 EDT, Height Start Date: 05/13/23 Status: Ordered Clobetasol (Eqv-Temovate) 0.05% topical cream See Instructions, APPLY TO AFFECTED AREA TWICE A DAY, # 60 Gm, 0 Refills, Maintenance, 06/22/22 11:25:00 [facility], 30, APPLY TO AFFECTED AREA TWICE A DAY, 157, cm, 02/15/22 10:32:00 EDT, Height Start Date: 06/22/22 Status: Ordered fenofibrate 54 mg oral tablet 1 tablet, By Mouth, Daily, # 90 tablet, 1 Refills, Maintenance, 05/13/23 9:00:00 EST, [facility] #01162, 157, cm, 10/17/22 7:48:00 EDT, Height Start Date: 05/13/23 Status: Ordered lisinopril 20 mg oral tablet 1, tablet, By Mouth, Daily, # 90 tablet, Refills 1, Maintenance, 08/08/23 10:38:00 EDT, [facility]ically, [facility], 157, cm, 06/21/23 8:23:00 EST, Height Start Date: 08/08/23 Status: Ordered mercaptopurine 50 mg oral tablet 2 tablet = 100 mg, By Mouth, Daily in AM, 0 Refills, Maintenance, 01/06/20 11:07:00 EDT Start Date: 01/06/20 Status: Ordered pregabalin 150 mg oral capsule 1 capsule = 150 mg, By Mouth, 2 times a day, # 60 capsule, 5 Refills, Maintenance, 07/09/23 15:47:00 EST, Capsule, [facility] #[id number], generic brand only, 157, cm, 06/21/23 8:23:00 [...] 12/06/21 9:21:00 EDT, Route to Pharmacy Electronically, [facility]/pharmacy #3949, Partial fill upon patient request if the [...] Personnel Name: Dwight De Oliveira MD Position: [facility] Physician - Primary Care Member Role: PCP Address: Address: [address] [place] [address]- Name: Anette Boyce RN Position: [facility] AMB Nurse Member Role: Primary Care Nurse Name: Afia Hughes RN Position: [facility] RN Member Role: Primary Care Nurse Name: Tomer Merino RN Position: [facility] RN Member Role: Primary Care Nurse Care Team Related Persons Name: ROSE CRENSHAW Address: [address] [address]
--- OUTSIDE RECORDS SUMMARY | 2023-11-27 20:15 | XMS_ITS | Continuity of Care Document ---
Author Organization [facility] Address [address] [place] [address]- Care Team Providers Care Housekeeping Laundry Worker Name Role Phone Dwight De Oliveira MD Primary Care Physician Encounter [facility] [place] Date(s): 06/16/21 - 07/16/21 [facility] Adult [address] [place] [address]- Allergies, Adverse Reactions, Alerts No Known Allergies [...] 12/30/19 Not Given Patient Refuses 1Result Comment: [id number] 2Admin Note: declined 3Admin Note: declined Medications amLODIPine 5 mg oral tablet 1 tablet, By Mouth, Daily, # 30 tablet, 5 Refills, [facility] 57958, 157, cm, 06/07/21 8:43:00 EST, Height, 80.1, [...] tablet, 5 Refills, Maintenance, 02/14/21 8:04:00 EDT, [facility]/pharmacy #2339, 157, cm, 10/27/20 10:35:00 EDT, [...] Replace Required Details, Route to Pharmacy Electronically, [facility]/pharmacy #2339, 157, cm, 10/27/20 10:35:00 ED... [...] 5 Refills, Maintenance, 05/31/21 11:19:00 EST, Capsule, [facility]/pharmacy #0693, generic brand only, 157, [...] vaginal dryness(Confirmed) Active 1colo 2014; repeat 2020 73721; repeat 2017 Social History Social History Type Response Smoking Status Never smoker entered on: 09/20/16 Sex
--- OUTSIDE RECORDS SUMMARY | 2023-11-27 20:15 | XMS_ITS | Continuity of Care Document ---
Author Organization [facility] Milo lt Address [address] [place] [address]- Care Team Providers Care Supervisor Fur Floor Worker Name Role Phone Dwight De Oliveira MD Primary Care Physician [phone] [place] [facility] [place] 04/20/22 - 05/20/22 [facility] Adult [address] [place] [address]- Allergies, Adverse Reactions, Alerts No Known Allergies [...] 12/30/19 Not Given Patient Refuses 1Result Comment: [id number] 2Admin Note: declined 3Admin Note: declined Medications atorvastatin 40 mg oral tablet 1 tablet, By Mouth, Daily, # 30 tablet, 5 Refills, Maintenance, 02/15/22 12:10:00 EDT, [facility]/pharmacy#2339, 157, cm, 02/15/22 10:32:00 EDT, Height Start Date: 02/15/22 Status: Ordered clobetasol 0.05% topical cream See Instructions, APPLY TO AFFECTED AREA TWICE A DAY, # 60 Gm, 0 Refills, Maintenance, 02/05/22 6:39:00 EDT, [facility], 60, APPLY TO AFFECTED AREA TWICE A DAY, 157, cm, 12/06/21 8:57:00 EDT, Height Start Date: 02/05/22 Status: Ordered fenofibrate 54 mg oral tablet 1 tablet, By Mouth, Daily, # 30 tablet, 5 Refills, Maintenance, 02/02/22 6:48:00 EDT, [facility], 157, cm, 12/06/21 8:57:00 EDT, Height Start Date: 02/02/22 Status: Ordered Humira See Instructions, 40 mg Subcutaneous Infusion Once every 15 days, 0 Refills, Maintenance, 06/20/12 10:48:17 EST Start Date: 06/20/12 Status: Ordered lisinopril 20 mg oral tablet 1, tablet, By Mouth, Daily, # 30 tablet, Refills 5, Maintenance, 02/02/22 6:49:00 EDT, Route to Pharmacy Electronically, [facility], 157, cm, 12/06/21 8:57:00 EDT, Height Start Date: 02/02/22 Status: Ordered mercaptopurine 50 mg oral tablet 2 tablet = 100 mg, By Mouth, Daily in AM, 0 Refills, Maintenance, 01/06/20 11:07:00 EDT Start Date: 01/06/20 Status: Ordered pregabalin 150 mg oral capsule 1 capsule = 150 mg, By Mouth, 2 times a day, # 60 capsule, 5 Refills, Maintenance, 04/20/22 15:34:00 EST, Capsule, [facility]/pharmacy #0693, generic brand only, 157, cm, 02/15/22 10:32:00 EDT, Height Start Date: 04/20/22 Stop Date: 10/17/22 Status: Ordered PriLOSEC OTC 20 mg oral [...] EDT, Route to Pharmacy Electronically, [facility]/pharmacy #7217, Partial fill upon patient request if the prescription is for a schedule II opioid drug.... Start Date: 12/06/21 Status: Ordered Zithromax 250 mg oral tablet 1 pack/packet, By Mouth, Once, # 6 tablet, 0 Refills, Soft Stop, 02/20/22 11:08:00 EDT, Tablet, [facility], Partial fill upon patient request if the [...] dryness Confirmed Active 1colo 2014; repeat 2020 42963; repeat 2017 Social History Social History Type Response Smoking Status Never smoker entered on: 09/20/16 Sex Patient Care team information Care Team Personnel Name: Anderson Best RN Position: S RN Member Role: Primary Care Nurse Name: Dwight De Oliveira MD Position: [facility] Primary Care Physician Member Role: PCP Address: Address: [address] [place] [address]- Name: Anette Boyce RN Position: S RN Member Role: Primary Care Nurse Name: Afia Hughes RN Position: S RN Member Role: Primary Care Nurse Name: Tomer Mernio RN Position: S RN Member Role: Primary Care Nurse Care Team Related Persons Name: DAVIDAngelaAPRIL RUSHIC Address: [address] [address]
--- OUTSIDE RECORDS SUMMARY | 2023-11-27 20:15 | XMS_ITS | Continuity of Care Document ---
Author Organization [facility] Milo lt Address [address] [place] [address]- Care Team Providers Care Automotive Teacher Name Role Phone Dwight De Oliveira MD Primary Care Physician Encounter [facility] Date(s): 09/12/22 - 10/12/22 [facility] Adult [address] [place] [address]- Attending Physician: Admtr, Ar8 Allergies, Adverse Reactions, [...] 12/30/19 Not Given Patient Refuses 1Result Comment: [id number] 2Admin Note: declined 3Admin Note: declined Medications atorvastatin 40 mg oral tablet 1 tablet, By Mouth, Daily, # 90 tablet, 0 Refills, Maintenance, 08/01/22 15:19:00 EDT, [facility] #[id number], 157, cm, 02/15/22 10:32:00 EDT, Height Start Date: 08/01/22 Status: Ordered Clobetasol (Eqv-Temovate) 0.05% topical cream See Instructions, APPLY TO AFFECTED AREA TWICE A DAY, # 60 Gm, 0 Refills, Maintenance, 06/22/22 11:25:00 EST, [facility] 19849, 30, APPLY TO AFFECTED AREA TWICE A DAY, 157, cm, 02/15/22 10:32:00 EDT, Height Start Date: 06/22/22 Status: Ordered fenofibrate 54 mg oral tablet 1 tablet, By Mouth, Daily, # 90 tablet, 0 Refills, Maintenance, 08/01/22 15:19:00 EDT, [facility] #18708, 157, cm, 02/15/22 10:32:00 EDT, Height Start Date: 08/01/22 Status: Ordered Humira See Instructions, 40 mg Subcutaneous Infusion Once every 15 days, 0 Refills, Maintenance, 06/20/12 10:48:17 EST Start Date: 06/20/12 Status: Ordered lisinopril 20 mg oral tablet 1, tablet, By Mouth, Daily, # 90 tablet, Refills 0, Tot. Refills 0, Maintenance, 08/01/22 15:19:00 EDT, Route to Pharmacy Electronically, [facility] #[id number], 157, cm, 02/15/22 10:32:00 EDT, Height Start Date: 08/01/22 Status: Ordered mercaptopurine 50 mg oral tablet 2 tablet = 100 mg, By Mouth, Daily in AM, 0 Refills, Maintenance, 01/06/20 11:07:00 EDT Start Date: 01/06/20 Status: Ordered pregabalin 150 mg oral capsule 1 capsule = 150 mg, By Mouth, 2 times a day, # 60 capsule, 5 Refills, Maintenance, 08/02/22 8:50:00EDT, Capsule, [facility] #[id number], generic brand only, 157, cm, 02/15/22 10:32:00 [...] 9:21:00 EDT, Route to Pharmacy Electronically, [facility]/pharmacy #3456, Partial fill upon patient request if the [...] Date: * Event Display: EKG Authored Date: Laboratory * Event Display: Non BH Lab Results Authored Date: * Event Display: Non BH Lab Results Authored Date: * Event Display: Non BH Lab Results Authored Date: * Event Display: Laboratory Result Scanned Authored Date: * Event Display: Non BH Lab Results Authored Date: Cardiology Outpatient Note * Nikki Donnelly: PERFORM Event Display: Cardiology Note Office Authored Date: [id number] * Larisa Quach: PERFORM Event Display: Cardiology Note Office Authored Date: [id number] Radiology * Event Display: CT Scan Abdomen, Non- BH Authored Date: * Event Display: Radiology Result Scanned Authored Date: * Event Display: Radiology Result Scanned Authored Date: * Suad Choudhary: PERFORM Event Display: Radiology Results Scanned Authored Date: Patient Care team information Care Team Personnel Name: Anderson Best RN Position: S RN Member Role: Primary Care Nurse Name: Dwight De Oliveira MD [facility] Physician - Primary Care Member Role: PCP Address: Address: [address] [place] [address]- Name: Anette Boyce RN [facility] RN Member Role: Primary Care Nurse Name: Afia Hughes RN [facility] RN Member Role: Primary Care Nurse Name: Tomer Merino RN [facility] RN Member Role: Primary Care Nurse Care Team Related Persons Name: APRIL CRENSHAWIC Address: [address] [address]
--- OUTSIDE RECORDS SUMMARY | 2023-11-27 20:15 | XMS_ITS | Continuity of Care Document ---
Author Organization [facility] Milo lt Address [address] [place] [address]- Care Team Providers Care Performance Improvement Analyst Name Role Phone Dwight De Oliveira MD Primary Care Physician Encounter [facility] Date(s): 12/05/21 - 01/04/22 [facility] Adult [address] [place] [address]- Allergies, Adverse Reactions, Alerts No Known Allergies [...] 12/30/19 Not Given Patient Refuses 1Result Comment: [id number] 2Admin Note: declined 3Admin Note: declined Medications atorvastatin 40 mg oral tablet 1 tablet, By Mouth, Daily, # 30 tablet, 5 Refills, [facility] 78[facility], 157, cm, 06/07/21 8:43:00 EST, Height, 80.1, kg, 01/22/20 14:40:00 EDT, Dry Weight Start Date: 08/07/21 Status: Ordered clobetasol 0.05% topical cream 1 application, Topically, 2 times a day, # 60 Gm, 0 Refills, Maintenance, 08/30/21 16:43:00 EDT, [facility], [facility], Partial fill upon patient request if the prescription is for a schedule II opioid drug., 1 application Topically 2 times a day,... Start Date: 08/30/21 Status: Ordered fenofibrate 54 mg oral tablet 1 tablet, By Mouth, Daily, # 30 tablet, 5 Refills, [facility] 48260, 157, cm, 06/07/21 8:43:00 EST, Height, 80.1, [...] Replace Required Details, Route to Pharmacy Electronically, [facility]/pharmacy #2339, 157, cm, 10/27/20 10:35:00 ED... Start Date: 02/07/21 Status: Ordered mercaptopurine 50 mg oral tablet 2 tablet = 100 mg, By Mouth, Daily in AM, 0 Refills, Maintenance, 01/06/20 11:07:00 EDT Start Date: 01/06/20 Status: Ordered pregabalin 150 mg oral capsule 1 capsule = 150 mg, By Mouth, 2 times a day, # 60 capsule, 5 Refills, Maintenance, 10/30/21 8:55:00EDT, Capsule, [facility]/pharmacy #0693, generic brand only, 157, cm, 10/30/21 [...] 12/06/21 9:21:00 EDT, Route to Pharmacy Electronically, [facility]/pharmacy #0142, Partial fill upon patient request if the [...] vaginal dryness(Confirmed) Active 1colo 2014; repeat 2020 31594; repeat 2017 Social History Social History Type Response Smoking Status Never smoker entered on: 09/20/16 Sex Care Team Personnel Name: Yennifer OSORIO, Dwight Dunlap Address: [address] [place] [id number]
--- OUTSIDE RECORDS SUMMARY | 2023-11-27 20:15 | XMS_ITS | Continuity of Care Document ---
Author Organization [facility] ter Address [address] [place] [address]- Care Team Providers Care Railroad Signal And Switch Operator Name Role Phone Dwight De Oliveira MD Primary Care Physician Encounter [facility] Date(s): 01/18/20 - 01/21/[address] [address]- [facility] Discharge Disposition: A-D/C Home Attending Physician: Pietro Bueno MD Admitting Physician: Pietro Bueno MD Referring Physician: Pietro Bueno MD Allergies, Adverse Reactions, Alerts Substance Reaction [...] Replace Required Details, Route to Pharmacy Electronically, [facility]/pharmacy #0521, 158, cm, 12/31/19 4:02:00 EDT, [facility] Start Date: 01/12/20 Status: Ordered atorvastatin 40 mg oral tablet 1 tablet, By Mouth, Daily, # 30 tablet, 5 Refills, Maintenance, 01/13/20 15:56:00 EDT, [facility]/pharmacy#2339, 157.48, cm, 01/13/20 14:36:00 EDT, Height, 77.27, kg, 01/12/20 16:16:00 EDT, Dry Weight Start Date: 01/13/20 Status: Ordered fenofibrate 54 mg oral tablet 1 tablet, By Mouth, Daily, # 30 tablet, 5 Refills, Maintenance, 07/23/19 14:20:00 EDT, [facility] STORE 14245, 158, cm, 06/22/19 9:24:00 EST, Height, 81.6, kg, 09/24/17 8:57:00 EDT, Dry Weight Start Date: 07/23/19 Status: Ordered Flagyl 500 mg oral tablet See Instructions, take 2 tabs with 2 tabs neomycin at 9:00PM and again at 11:00PM day before procedure., # 4 each, 0 Refills, Maintenance, 01/08/20 14:41:00 EDT, [facility]/pharmacy #2339, 158, cm, 12/30/204:02:00 EDT, [...] 07/23/19 14:20:00 EDT, Route to Pharmacy Electronically, [facility] STORE 57017, 158, cm, 06/22/19 9:24:00 EST, Height, 81.6,kg, [...] vaginal dryness(Confirmed) Active 1colo 201418; repeat 2020 21534; repeat 2017 Vital Signs Most recent to oldest [Reference Range]: 1 2 3 Height 157.48 cm (01/20/20 6:41 AM) 157.48 cm (01/19/20 11:26 PM) 157.48 cm (01/19/20 8:01 PM) Weight 81.6 kg (01/18/20 7:44 PM) 77.27 kg (01/18/20 11:22 AM) 77.27 kg (01/12/20 4:16 PM) Oxygen Saturation [94-100 %] 100 % (01/21/20 3:00 PM) 100 % (01/21/20 12:00 PM) 100 % (01/21/20 8:00 AM) Pulse Rate [55-90 bpm] 65 bpm (01/21/20 3:00 PM) 68 bpm (01/21/20 12:00 PM) 66 bpm (01/21/20 8:00 AM) Body Mass Index [18.5-24.99] 32.9 *>HHI* (01/18/20 7:44 PM) 31.16 *>HHI* (01/18/20 11:22 AM) 31.16 *>HHI* (01/12/20 4:16 PM) Blood Pressure [90-138/55-84 mm Hg] 128/78mm Hg (01/21/20 3:00 PM) 125/80mm Hg (01/21/20 12:00 PM) 127/74mm Hg (01/20/20 10:00 PM) Respiratory Rate [16-30 br/min] 19 br/min (01/21/20 3:00 PM) 18 br/min (01/21/20 2:37 PM) 20 br/min (01/21/20 1:37 PM) Temperature [96.8-100.4 DegF] 98.2 DegF (01/21/20 3:00 PM) 98.1 DegF (01/21/20 12:00 PM) 98.0 DegF (01/21/20 8:00 AM) Liters per Minute 2 L/min (01/19/20 3:00 PM) 2 L/min (01/19/20 11:00 AM) 2 L/min (01/19/20 7:00 AM) Mode of Delivery (Oxygen) Room air (01/21/20 3:00 PM) Room air (01/21/20 12:00 PM) Room air (01/21/20 8:00 AM) Blood pressure sites Arm, left (01/21/20 3:00 PM) Arm, left (01/21/20 12:00 PM) Arm, left (01/21/20 8:00 AM) Temperature Route Oral (01/21/20 3:00 PM) Oral (01/21/20 12:00 PM) Oral (01/21/20 8:00 AM) Dry Weight 80.1 kg (01/20/20 11:00 AM) 81.6 kg (01/18/20 7:44 PM) 77.4 kg (01/18/20 11:22 AM) Weight Obtained Via Bed scale (01/18/20 7:44 PM) Patient/family stated (01/12/20 4:16 PM) Dry Weight Obtained Via Standing scale (01/20/20 11:00 AM) Bed scale (01/18/20 7:44 PM) Patient/family stated (01/12/20 4:16 PM) Social History Social History Type Response Smoking Status Never smoker entered on: 09/20/16 Sex
[2023-11-27 20:16] LABS: Basophils Percent Auto 0.4 % (0-2); Eosinophils Absolute Auto 0.1 X10*3/uL (0.0-0.4); Eosinophils Percent Auto 2.5 % (0-4); Hematocrit 39.2 % (37.0-47.0); Hemoglobin 13.4 g/dl (12.0-16.0); Imm Gran Abs Auto 0.01 X10*3/uL (0.00-0.03); Imm Gran Pct Auto 0.2 % (0.0-0.4); Lymphocytes Absolute Auto 0.6 X10*3/uL (1.2-4.9); Lymphocytes Percent Auto 12.2 % (20-40); Mean Corpuscular HGB Conc 34.2 g/dl (31.0-35.0); Mean Corpuscular Hemoglobin 33.6 pg (27.0-33.0); Mean Corpuscular Volume 98.2 fL (80.0-98.0); Mean Platelet Volume 11.2 fL (9.4-12.3); Monocytes Absolute Auto 0.2 X10*3/uL (0.1-1.2); Monocytes Percent Auto 4.5 % (2-11); Neutrophils Absolute Auto 4.1 x10*3/uL (2.0-8.3); Neutrophils Percent Auto 80.2 % (45-73); Platelet Count 240 X10*3/uL (160-400); Red Blood Count 3.99 X10*6/uL (4.20-5.50); White Blood Count 5.2 X10*3/uL (4.8-10.8)
--- OUTSIDE RECORDS SUMMARY | 2023-11-27 20:16 | XMS_ITS | Continuity of Care Document ---
Author Organization [facility] Milo Address [address] [place] [address]- Care Team Providers Care Housekeeping/Laundry Supervisor Name Role Phone Yennifer OSORIO, Dwight Dunlap Primary Care Physician Encounter [facility] Date(s): 11/04/19 - 11/11/19 [facility] Adult [address] [place] [address]- [place] Encounter Diagnosis Right ear pain(Discharge Diagnosis) - 11/04/19 Vertigo(Discharge Diagnosis) - 11/04/19 Attending Physician: Not on Staff, Attending MD Allergies, Adverse Reactions, Alerts Substance Reaction [...] Replace Required Details, Route to Pharmacy Electronically, [facility]/pharmacy #[id number], 158, cm, 06/22/19 9:24:00 EST, H... Start Date: 07/13/19 Status: Ordered atorvastatin 40 mg oral tablet 1 tablet, By Mouth, Daily, # 30 tablet, 5 Refills, Maintenance, 07/23/19 14:20:00 EDT, [facility] STORE 11074, 158, cm, 06/22/19 9:24:00 EST, Height, 81.6, [...] 11/04/19 11:42:00 EDT, Route to Pharmacy Electronically, [facility]/pharmacy #2339, 158, cm, 11/04/19 11:05:00 EDT, Height Start Date: 11/04/19 Status: Ordered fenofibrate 54 mg oral tablet 1 tablet, By Mouth, Daily, # 30 tablet, 5 Refills, Maintenance, 07/23/19 14:20:00 EDT, [facility] STORE 61682, 158, cm, 06/22/19 9:24:00 EST, Height, 81.6, kg, 09/24/17 8:57:00 EDT, Dry Weight Start Date: 07/23/19 Status: Ordered fluticasone 27.5 mcg/inh nasal spray 1 sprays, Nares, Both, Daily, PRN for allergy symptoms, # 10 Gm, 1 Refills, Maintenance, 11/04/19 11:41:00 EDT, [place], [facility]/pharmacy #2339, 1 sprays Nares, Both Daily,PRN:for allergy [...] EDT, Route to Pharmacy Electronically, [facility], 158, cm, 06/22/19 9:24:00 EST, Height, 81.6,kg, 09/24/17 8:57:00 EDT, Dry Weight Start Date: 07/23/19 Status: Ordered meclizine 25 mg oral tablet 1 tablet = 25 mg, By Mouth, 3 times a day, PRN for dizziness, # 30 tablet, 0 Refills, Maintenance, 11/10/19 10:36:00 EDT, Tablet, [facility]/pharmacy #2339, 158, cm, 11/10/19 9:31:00 EDT, Height Start Date: 11/10/19 Status: Ordered pregabalin 150 mg oral capsule 1 capsule = 150 mg, By Mouth, 2 times a day, # 180 capsule, 3 Refills, Maintenance, 10/16/19 16:18:00 EDT, Capsule, [facility]/pharmacy #2339, generic brand only, 158, cm, 06/22/19 [...] Dates Health Status Cl inical Service Informant Right ear pain Discharge Diagnosis 11/04/19 Vertigo Discharge Diagnosis 11/04/19 Vital Signs Most recent to oldest [Reference Range]: 1 Height 158 cm (11/04/19 11:05 AM) Weight 86.2 kg (11/04/19 11:05 AM) Oxygen Saturation [94-100 %] 98 % (11/04/19 11:05 AM) Pulse Rate [55-90 bpm] 80 bpm (11/04/19 11:05 AM) Body Mass Index [18.5-24.99] 34.53 *>HHI* (11/04/19 11:05 AM) Blood Pressure [90-138/55-84 mm Hg] 122/ 64mm Hg (11/04/19 11:05 AM) Respiratory Rate [16-30 br/min] 16 br/mi n (11/04/19 11:05 AM) Temperature [96.8-100.4 DegF] 98.5 DegF (11/04/19 11:05 AM) Mode of Delivery (Oxygen) Room air (11/04/19 11:05 AM) Blood pressure sites Arm, right (11/04/19 11:05 AM) Temperature Route Oral (11/04/19 11:05 AM) Weight Obtained Via Standing scale (11/04/19 11:05 AM) Social History Social History Type Response Smoking Status Never smoker entered on: 09/20/16 Sex
--- OUTSIDE RECORDS SUMMARY | 2023-11-27 20:16 | XMS_ITS | Continuity of Care Document ---
Author Organization [facility] Address [address] [place] [address]- Care Team Providers Care Lab Support Tech Name Role Phone Dwight De Oliveira MD Primary Care Physician [place] [facility] [place] 08/24/21 - 08/31/21 [facility] [address] [place], [place] [address] Attending Physician: Marleen Mathew DO Referring Physician: Dwight De Oliveira MD Allergies, [...] 12/30/19 Not Given Patient Refuses 1Result Comment: [id number] 2Admin Note: declined 3Admin Note: declined Medications amLODIPine 5 mg oral tablet 1 tablet, By Mouth, Daily, # 30 tablet, 5 Refills, [facility] 44064, 157, cm, 06/07/21 8:43:00 EST, Height, 80.1, kg, 01/22/20 14:40:00 EDT, Dry Weight Start Date: 06/18/21 Status: Ordered atorvastatin 40 mg oral tablet 1 tablet, By Mouth, Daily, # 30 tablet, 5 Refills, [facility] 12507, 157, cm, 06/07/21 8:43:00 EST, Height, 80.1, [...] 5 Refills, [facility] STORE 45346, 157, cm, 06/07/21 8:43:00 EST, Height, 80.1, [...] 5 Refills, Maintenance, 05/31/21 11:19:00 EST, Capsule, [facility]/pharmacy #0693, generic [...] vaginal dryness(Confirmed) Active 1colo 201418; repeat 2020 64677; repeat 2017 Vital Signs Most recent to oldest [Reference Range]: 1 Height 157 cm (08/24/21 10:06 AM) Oxygen Saturation [94-100 %] 98 % (08/24/21 10:06 AM) Pulse Rate [55-90 bpm] 82 bpm (08/24/21 10:06 AM) Blood Pressure [90-138/55-84 mm Hg] 139/ 82mm Hg *H* (08/24/21 10:06 AM) Respiratory Rate [16-30 br/min] 16 br/mi n (08/24/21 10:06 AM) Temperature [96.8-100.4 DegF] 97.7 DegF (08/24/21 10:06 AM) Mode of Delivery (Oxygen) Room air (08/24/21 10:06 AM) Blood pressure sites Arm, right (08/24/21 10:06 AM) Temperature Route Temporal (08/24/21 10:06 AM) Social History Social History Type Response Smoking Status Never smoker entered on: 09/20/16 Sex
--- OUTSIDE RECORDS SUMMARY | 2023-11-27 20:16 | XMS_ITS | Continuity of Care Document ---
Author Organization [facility] Milo lt Address [address] [place] [address]- Care Team Providers Care University Dean Name Role Phone Dwight De Oliveira MD Primary Care Physician [phone] Encounter [facility] Date(s): 11/18/22 - 12/18/22 [facility] Adult [address] [place] [address]- Allergies, Adverse Reactions, Alerts No Known Allergies Immunizations Given and Recorded Vaccine Date Status Refusal Reason SARS-CoV-2 (COVID-19) Ad26 vaccine 1 10/27/20 Give n Influenza Virus Vaccine (oldterm) 2 01/31/17 Given tetanus/diphtheria/pertussis, acel(Tdap) 09/20/16 Given tetanus-diphtheria toxoids (Td) 3 01/20/05 Given 1Result Comment: [id number] 2Admin Note: declined 3Admin Note: declined Medications atorvastatin 40 mg oral tablet 1 tablet, By Mouth, Daily, # 90 tablet, 1 Refills, Maintenance, 10/24/22 10:14:00 EDT, [facility] #64728, 157, cm, 10/17/22 7:48:00 EDT, Height Start Date: 10/24/22 Status: Ordered Clobetasol (Eqv-Temovate) 0.05% topical cream See Instructions, APPLY TO AFFECTED AREA TWICE A DAY, # 60 Gm, 0 Refills, Maintenance, 06/22/22 11:25:00 EST, [facility] 41721, 30, APPLY TO AFFECTED AREA TWICE A DAY, 157, cm, 02/15/22 10:32:00 EDT, Height Start Date: 06/22/22 Status: Ordered fenofibrate 54 mg oral tablet 1 tablet, By Mouth, Daily, # 90 tablet, 1 Refills, Maintenance, 10/24/22 10:14:00 EDT, [facility] #85828, 157, cm, 10/17/22 7:48:00 EDT, Height Start Date: 10/24/22 Status: Ordered lisinopril 20 mg oral tablet 1, tablet, By Mouth, Daily, # 90 tablet, Refills 0, Tot. Refills 0, Maintenance, 11/13/22 8:13:00 EDT, [facility], 157, cm, 10/17/22 7:48:00 EDT, Height Start Date: 11/13/22 Status: Ordered mercaptopurine 50 mg oral tablet 2 tablet = 100 mg, By Mouth, Daily in AM, 0 Refills, Maintenance, 01/06/20 11:07:00 EDT Start Date: 01/06/20 Status: Ordered pregabalin 150 mg oral capsule 1 capsule = 150 mg, By Mouth, 2 times a day, # 60 capsule, 5 Refills, Maintenance, 08/02/22 8:50:00EDT, Capsule, [facility] #63921, generic brand only, 157, cm, 02/15/22 10:32:00 [...] 12/06/21 9:21:00 EDT, Route to Pharmacy Electronically, [facility]/pharmacy #8100, Partial fill upon patient request if the [...] Personnel Name: Anderson Best RN Position: [facility] RN Member Role: Primary Care Nurse Name: Dwight De Oliveira MD Position: [facility] Physician - Primary Care Member Role: PCP Address: Address: [address] [place] [address]- Name: Anette Boyce RN Position: [facility] AMB Nurse Member Role: Primary Care Nurse Name: Afia Hughes RN Position: [facility] RN Member Role: Primary Care Nurse Name: Tomer Merino RN Position: [facility] RN Member Role: Primary Care Nurse Care Team Related Persons Name: ROSE CRENSHAW Address: [address] [address]
--- OUTSIDE RECORDS SUMMARY | 2023-11-27 20:16 | XMS_ITS | Continuity of Care Document ---
Author Organization [facility] Address [address] [place] [address]- Care Team Providers Care Mental Health Consultant Name Role Phone Yennifer OSORIO, Dwight Dunlap Primary Care Physician [phone] Encounter [facility] Date(s): 06/10/19 - 06/20/19 [facility] [address] [address]- [facility] Attending Physician: Calderon Rodrigez Admitting Physician: Calderon Rodrigez Referring Physician: AdmCalderon hearn Allergies, Adverse Reactions, Alerts Substance Reaction Severity [...] TAKE 1 TABLET BY MOUTH EVERY DAY, [facility]/pharmacy #3809 Start Date: 01/15/19 Status: Ordered atorvastatin 40 mg oral tablet See Instructions, # 30 tablet, Refills 5 Tot. Refills 5, TAKE 1 TABLET BY MOUTH EVERY DAY, [facility]/pharmacy #6164 Start Date: 01/22/19 Status: Ordered atropine-diphenoxylate 0.025 [...] TAKE 1 TABLET BY MOUTH EVERY DAY, [facility]/pharmacy #2339 Start Date: 01/22/19 Status: Ordered Humira See Instructions, 40 mg Subcutaneous Infusion Once every 15 days, 0 Refills, Maintenance, 06/20/12 10:48:17 Start Date: 06/20/12 Status: Ordered lisinopril 20 mg oral tablet See Instructions, # 30 tablet, Refills 5 Tot. Refills 5, TAKE 1 TABLET BY MOUTH EVERY DAY, [facility]/pharmacy #2339 Start Date: 01/15/19 Status: Ordered pregabalin 150 mg oral capsule 1 capsule = 150 mg, By Mouth, 2 times a day, # 180 capsule, 0 Refills, Maintenance, 05/22/19 15:35:00 EST, Capsule, [facility]/pharmacy #2339, generic brand only, 158, cm, 04/01/19 [...]
--- OUTSIDE RECORDS SUMMARY | 2023-11-27 20:16 | XMS_ITS | Continuity of Care Document ---
Author Organization [facility] [place] lt Address [address] [place] [address]- Care Team Providers Care Director Of Undergraduate Admissions Name Role Phone Yennifer OSORIO, Dwight Dunlap Primary Care Physician [place] [facility] [place]/21 - 06/30/21 [facility] Adult [address] [place] [address]- Allergies, Adverse Reactions, Alerts No Known Allergies [...] 12/30/19 Not Given Patient Refuses 1Result Comment: [id number] 2Admin Note: declined 3Admin Note: declined Medications amLODIPine 5 mg oral tablet 1 tablet, By Mouth, Daily, # 30 tablet, 5 Refills, [id number], 157, cm, 06/07/21 8:43:00 EST, Height, 80.1, [...] tablet, 5 Refills, Maintenance, 02/14/21 8:04:00 EDT, [facility]/pharmacy #[id number], 157, cm, 10/27/20 10:35:00 EDT, [...] Replace Required Details, Route to Pharmacy Electronically, [facility]/pharmacy #[id number], 157, cm, 10/27/20 10:35:00 [...] 5 Refills, Maintenance, 05/31/21 11:19:00 EST, Capsule, [facility]/pharmacy #[id number], generic brand only, 157, [...] vaginal dryness(Confirmed) Active 1colo 2014; repeat 2020 23065; repeat 2017 Social History Social History Type Response Smoking Status Never smoker entered on: 09/20/16 Sex
[2023-11-27 20:20] LABS: Appearance Urine Cloudy; Color Urine Yellow; Glucose Urine UA Negative (Negative); Leukocyte Esterase Urine Large (3+) (Negative); Nitrite Urine Negative (Negative); PH 6.5 (5.0-9.0); UMIC TRIGGER UACC YES; Urine Blood Moderate (2+) (Negative); Urine Ketones Negative (Negative); Urine Protein Negative (Neg-Trace)
[2023-11-27 20:23] LABS: Bacteria Urine Trace (None Seen); Hyaline Casts Urine 0-2 /LPF (0-2); RBC Urine >20 /HPF (0-2); Squamous Epithelial Cell Urine 0-2 /HPF (0-2); UACC Culture Trigger YES; WBC Urine >50 /HPF (0-5)
[2023-11-27 20:31] LABS: Alanine Aminotransferase 42 U/L (0-31); Albumin Level 3.9 g/dL (3.5-5.0); Alkaline Phosphatase 78 U/L (39-117); Anion Gap 15 (12-20); Aspartate Amino Transferase 38 U/L (5-31); Bilirubin Total 0.8 mg/dL (0.0-1.0); Blood Urea Nitrogen 12 mg/dL (9-16); Calcium 9.4 mg/dL (8.4-10.2); Carbon Dioxide 22 mmol/L (22-29); Chloride 109 mmol/L (96-108); Creatinine Clr Calc Pharmacy 91.2; Estimated Glomerular Filt Rate > 60; Glucose Random 182 mg/dL (60-115); Potassium 4.2 mmol/L (3.3-5.1); Sodium 142 mmol/L (135-145); Total Protein 6.9 g/dL (6.5-8.0)
== END 2023-11-27 20:51 | disposition home or self-care (01) ==
PROVIDERS: Registered Nurse Emergency; Emergency Provider Emergency Medicine; PCP Internal Medicine
DX: N39.0 Urinary tract infection, site not specified (principal); B96.20 Unspecified Escherichia coli [E. coli] as the cause of diseases classified elsewhere; R10.9 Unspecified abdominal pain
CPT/HCPCS: 36415; 80053; 81001; 85025; 87086; 87088; 87186; 99282; 99283

== ENCOUNTER 2024-05-23 07:56 | Emergency (ER) | payer OTHER, SELFPAY ==
--- NOTE | 2024-05-23 07:58 | ED.GENADULT ---
HPI - General Adult General Chief complaint: Nausea/Vomiting/Diarrhea Stated complaint: FLU LIKE SYMPTOMS Time Seen by Provider: 05/23/24 07:57 Source: patient, EMS and RN notes reviewed Mode of arrival: EMS Limitations: no limitations History of Present Illness ED Provider: Beatrice Rider PA-C HPI narrative: This is a 53-year-old female, with a history of Crohn's disease, who presents emergency department with complaints of nausea, vomiting, and diarrhea since 1:00 a.m. this morning. Patient states that she has had multiple family members sick with similar symptoms. Denies any bloody or black stool. No hemoptysis, or hematemesis. Denies any fevers, chills, chest pain, shortness breath, abdominal pain. No recent antibiotic use or travel. denies taking any medications at home to treat her current symptoms. no urinary symptoms. No other complaints or concerns. MD complaint: Nausea, vomiting, diarrhea Onset (ago): hour(s) Radiation: non-radiation Relieving factors: none Exacerbating factors: none Associated symptoms: nausea/vomiting Treatments prior to arrival: none Related Data Previous Rx's ?Medication ?Instructions ?Recorded cefuroxime axetil 250 mg tablet 250 mg PO BID #14 tabs 11/27/23 phenazopyridine 100 mg tablet 100 mg PO TID PRN pain 6 doses #6 11/27/23 tabs ondansetron 4 mg disintegrating 4 mg PO Q6H PRN nausea and 05/23/24 tablet vomiting #10 tabs vancomycin 125 mg capsule 125 mg PO QID 10 days #40 caps 05/23/24 Allergies Allergy/AdvReac Type Severity Reaction Status Date / Time No Known Allergies Allergy Verified 05/23/24 08:08 Review of Systems Review of Systems: Yes all other systems are reviewed and are negative Constitutional: Constitutional: Reports as per [facility] Social History Social History Advance Directives: No Advance Directives Information Provided: No Do you have a plan to hurt others: No Plan Physical Exam ED Vital Signs: Vital Signs - 24 hr 05/23/24 08:02 05/23/24 10:22 Temperature 97.7 F 99.2 F Pulse Rate 90 103 H Respiratory Rate 18 18 Blood Pressure 118/67 141/82 H Pulse Oximetry 100 94 Oxygen Delivery Method Room Air Room Air BMI result Body Mass Index 29.3 Const General: cooperative, comfortable and no acute distress Orientation/consciousness: patient oriented x3 Limitations: no limitations HENMT Head: Yes normal to inspection, Yes normocephalic and Yes atraumatic Ears: hearing grossly normal bilaterally General nose exam: Normal external nose present Face and sinus: Yes normal facial exam Mouth: Normal oral and palatal mucosa present, oropharynx normal and moist mucous membranes Throat: Yes posterior oropharynx normal Eyes General: appearance normal, both eyes and all related structures Eyelids: Yes eyelids normal Conjunctivae: conjunctivae normal Sclerae: sclerae normal Pupils: Equal, round and reactive pupils present EOM: EOMs intact bilaterally Neck Neck: Yes normal visual inspection, Yes full ROM and Yes no lymphadenopathy Lymphatic: no lymphadenopathy noted Chest Chest palpation & inspection: normal inspection of the chest Resp Effort & Inspection: normal respiratory effort and able to speak in complete sentences Auscultation: clear to auscultation bilaterally, no crackles, no rales, no rhonchi and no wheezes Cardio Rate: regular rate Rhythm: regular rhythm Heart sounds: S1 normal heart sound present and S2 normal heart sound present GI Other: abdomen is soft, nontender, nondistended Inspection: Yes normal to inspection Skin General skin exam: no rashes or lesions noted Trauma: no lacerations or abrasions Wounds: no wounds Neuro General: patient oriented x3 and moves all extremities Cranial nerves: Yes Equal, round and reactive pupils present Extrem General: Yes normal to inspection Right upper extremity: normal to inspection Left upper extremity: normal to inspection Right lower extremity: normal to inspection Left lower extremity: normal to inspection Course Reevaluation(s) Reevaluation #1: patient re-evaluated, nausea did improve after receiving Zofran however patient does report nausea is returning. Will treat with Reglan and Benadryl. Hypo magnesium anemia at 1.2, will replenish with 2 g and magnesium. Total bili 1.6, direct bili 0.6, AST ALT also elevated, he she has no abdominal pain. This is likely viral in etiology. We will continue to closely monitor. Urine appears to be contaminated, she has no urinary complaints. patient reporting headache and nausea, will treat with the Tylenol, Compazine, and Benadryl. Time: 09:34 Reevaluation #2: Patient continues to have diarrhea, 2nd dose administered, 2 L of IV fluids also ordered. Pain will also ordered and collected. Pending results. Will obtain 2nd troponin as we do not have previous EKG for previous. Time: 11:21 Reevaluation #3: C diff chain positive, toxin negative. This is likely due to an exposure see definite past however given that she is symptomatic, with a watery stool, will treat with vancomycin. Patient able to drink without return of vomiting. She can use to have diarrhea. She states that she is feeling much better than her arrival, would like to be discharged home. Given strict return precautions. She understands and agrees with plan; requesting nausea medication prior to discharge. Patient stable for discharge. Time: 12:40 Medications Administered Discontinued Medications Generic Name Dose Route Start Last Admin Trade Name Leoq PRN Reason Stop Dose Admin Diphenhydramine HCl 25 mg 05/23/24 09:32 05/23/24 09:48 Diphenhydramine Hcl 50 Mg/Ml Vial IVPUSH 05/23/24 09:33 25 mg ONCE ONE Administration Lactated Ringer's 1,000 mls @ 999 mls/hr 05/23/24 08:06 05/23/24 09:49 Lr IV 05/23/24 09:06 Infused .Q1H1M ONE Infusion Magnesium Sulfate 2 gm in 50 mls @ 150 mls/hr 05/23/24 09:11 05/23/24 11:46 Magnesium Sulfate/H2o IV 05/23/24 09:30 Infused ONCE ONE Infusion Acetaminophen 1,000 mg in 100 mls @ 400 mls/hr 05/23/24 09:32 05/23/24 10:21 Ofirmev IV 05/23/24 09:46 Infused ONCE ONE Infusion Loperamide HCl 4 mg 05/23/24 08:45 05/23/24 09:04 Loperamide Hcl 2 Mg Capsule PO 05/23/24 08:46 4 mg ONCE ONE Administration Loperamide HCl 2 mg 05/23/24 11:15 05/23/24 11:28 Loperamide Hcl 2 Mg Capsule PO 05/23/24 11:16 2 mg ONCE ONE Administration Metoclopramide HCl 10 mg 05/23/24 09:32 05/23/24 09:48 Metoclopramide Hcl 10 Mg/2 Ml Vial IVPUSH 05/23/24 09:33 10 mg ONCE ONE Administration Ondansetron HCl 4 mg 05/23/24 08:07 05/23/24 08:23 Ondansetron Hcl 4 Mg/2 Ml Vial IVPUSH 05/23/24 08:08 4 mg ONCE ONE Administration Medical Decision Making Medical Decision Making [facility] Narrative: this is a 53-year-old female, with a history of Crohn's, who presents emergency department with complaints of nausea, vomiting, diarrhea since this morning. On arrival, vital signs within normal limits. She is speaking in full sentences under no acute distress. Abdomen is soft and nontender. Differential diagnoses include gastritis, gastroenteritis, electrolyte derangement, cdif. Differential Diagnosis Differential Diagnoses: The differential diagnosis associated with the presentation includes See above Lab Data 05/23/24 08:43 05/23/24 08:43 Labs: Lab Results 05/23/24 05/23/24 05/23/24 Range/Units 08:27 08:43 08:55 WBC 11.8 H (4.8-10.8) X10*3/uL RBC 4.78 (4.20-5.50) X10*6/uL Hgb 15.6 (12.0-16.0) g/dl Hct 46.3 (37.0-47.0) % MCV 96.9 (80.0-98.0) fL MCH 32.6 (27.0-33.0) pg MCHC 33.7 (31.0-35.0) g/dl RDW 15.0 (11.0-16.0) % Plt Count 195 (160-400) X10*3/uL MPV 11.1 (9.4-12.3) fL Immature Gran % (Auto) 0.5 H (0.0-0.4) % Neut % (Auto) 94.2 H (45-73) % Lymph % (Auto) 0.8 L (20-40) % Mccreary % (Auto) 3.6 (2-11) % Eos % (Auto) 0.6 (0-4) % Baso % (Auto) 0.3 (0-2) % Lymph # (Auto) 0.1 L (1.2-4.9) X10*3/uL Mccreary # (Auto) 0.4 (0.1-1.2) X10*3/uL Eos # (Auto) 0.1 (0.0-0.4) X10*3/uL Baso # (Auto) 0.0 (0.0-0.2) X10*3/uL Abs Immat Gran (auto) 0.06 H (0.00-0.03) X10*3/uL Absolute Neuts (auto) 11.1 H (2.0-8.3) x10*3/uL Absolute Nucleated RBC 0.000 (0.0-0.012) X10*3/uL Nucleated RBC % (auto) 0.0 (0.0-0.2) /100WBC Smear Tech's Comments VERIFIED Sodium 143 (135-145) mmol/L Potassium 4.6 (3.3-5.1) mmol/L Chloride 114 H (96-108) mmol/L Carbon Dioxide 20 L (22-29) mmol/L Anion Gap 14 (12-20) BUN 18 H (9-16) mg/dL Creatinine 0.56 (0.5-1.4) mg/dL Estim Creat Clear Calc 105.8 Estimated GFR > 60 Random Glucose 129 H (60-115) mg/dL Calcium 9.0 (8.4-10.2) mg/dL Magnesium 1.2 L* (1.6-2.6) mg/dL Total Bilirubin 1.6 H (0.0-1.0) mg/dL Direct Bilirubin 0.6 H (0.0-0.5) mg/dL AST 44 H (5-31) U/L ALT 48 H (0-31) U/L Alkaline Phosphatase 68 (39-117) U/L Troponin I High Sens < 2.7 (<3.5-17.0) ng/L Total Protein 7.1 (6.5-8.0) g/dL Albumin 3.8 (3.5-5.0) g/dL Lipase 34 (8-78) U/L Urine Color Dark Yellow Urine Appearance Clear Urine pH 5.5 (5.0-9.0) Ur Specific [place] > 1.030 H (1.005-1.025) Urine Protein 30 (1+) H (Neg-Trace) mg/dL Urine Glucose (UA) Negative (Negative) mg/dL Urine Ketones Trace (Negative) mg/dL Urine Blood Negative (Negative) Urine Nitrite Negative (Negative) Ur Leukocyte Esterase Small (1+) H (Negative) Urine RBC 0-2 (0-2) /HPF Urine WBC 6-10 H (0-5) /HPF Ur Squamous Epith Cells 6-10 (0-2) /HPF Urine Bacteria Trace (None Seen) Hyaline Casts 0-2 (0-2) /LPF C. difficile Tox B Gene (Negative) C. difficile Toxin A&B (Negative) C. difficile Interpret Influenza Type A (PCR) NEGATIVE (Negative) Influenza Type B (PCR) NEGATIVE (Negative) RSV RNA Qual (PCR) NEGATIVE (Negative) SARS-CoV-2 RNA (RT-PCR) NEGATIVE (Negative) 05/23/24 05/23/24 Range/Units 10:01 12:20 WBC (4.8-10.8) X10*3/uL RBC (4.20-5.50) X10*6/uL Hgb (12.0-16.0) g/dl Hct (37.0-47.0) % MCV (80.0-98.0) fL MCH (27.0-33.0) pg MCHC (31.0-35.0) g/dl RDW (11.0-16.0) % Plt Count (160-400) X10*3/uL MPV (9.4-12.3) fL Immature Gran % (Auto) (0.0-0.4) % Neut % (Auto) (45-73) % Lymph % (Auto) (20-40) % Mccreary % (Auto) (2-11) % Eos % (Auto) (0-4) % Baso % (Auto) (0-2) % Lymph # (Auto) (1.2-4.9) X10*3/uL Mccreary # (Auto) (0.1-1.2) X10*3/uL Eos # (Auto) (0.0-0.4) X10*3/uL Baso # (Auto) (0.0-0.2) X10*3/uL Abs Immat Gran (auto) (0.00-0.03) X10*3/uL Absolute Neuts (auto) (2.0-8.3) x10*3/uL Absolute Nucleated RBC (0.0-0.012) X10*3/uL Nucleated RBC % (auto) (0.0-0.2) /100WBC Smear Tech's Comments Sodium (135-145) mmol/L Potassium (3.3-5.1) mmol/L Chloride (96-108) mmol/L Carbon Dioxide (22-29) mmol/L Anion Gap (12-20) BUN (9-16) mg/dL Creatinine (0.5-1.4) mg/dL Estim Creat Clear Calc Estimated GFR Random Glucose (60-115) mg/dL Calcium (8.4-10.2) mg/dL Magnesium (1.6-2.6) mg/dL Total Bilirubin (0.0-1.0) mg/dL Direct Bilirubin (0.0-0.5) mg/dL AST (5-31) U/L ALT (0-31) U/L Alkaline Phosphatase (39-117) U/L Troponin I High Sens < 2.7 (<3.5-17.0) ng/L Total Protein (6.5-8.0) g/dL Albumin (3.5-5.0) g/dL Lipase (8-78) U/L Urine Color Urine Appearance Urine pH (5.0-9.0) Ur Specific [place] (1.005-1.025) Urine Protein (Neg-Trace) mg/dL Urine Glucose (UA) (Negative) mg/dL Urine Ketones (Negative) mg/dL Urine Blood (Negative) Urine Nitrite (Negative) Ur Leukocyte Esterase (Negative) Urine RBC (0-2) /HPF Urine WBC (0-5) /HPF Ur Squamous Epith Cells (0-2) /HPF Urine Bacteria (None Seen) Hyaline Casts (0-2) /LPF C. difficile Tox B Gene POSITIVE A* (Negative) C. difficile Toxin A&B Negative (Negative) C. difficile Interpret SEE NOTE Influenza Type A (PCR) (Negative) Influenza Type B (PCR) (Negative) RSV RNA Qual (PCR) (Negative) SARS-CoV-2 RNA (RT-PCR) (Negative) Independent Interpretation I performed an independent interpretation of an: EKG Interpretation: EKG normal sinus rhythm at a ventricular rate of 94 beats per minute, AR interval 112, QT QTC 374/467. inverted t wave inversion in V1, V2; no previous for comparison. Discharge Plan Discharge Clinical Impression: Diarrhea, Gastroenteritis Patient Disposition: Home, Self-Care Instructions: Acute Diarrhea (ED) Additional Instructions: You were seen in the emergency department due to nausea, vomiting, diarrhea. You had a low magnesium level, this is likely due to nausea and vomiting as well as diarrhea. We gave you IV magnesium. Please stick to a bland diet, avoid dairy, or spicy food. Bananas, rice, applesauce, tea, toast can also help with your symptoms. I am treating you with medication called vancomycin, this is an antibiotic to treat for C diff. Your changes positive, your toxin is negative. This is likely due to exposure, but given you are symptomatic, will cover you with this antibiotic. If any new or worsening symptoms occur, including but not limited to chest pain, shortness of breath, abdominal pain, please seek emergent care. Prescriptions: New vancomycin 125 mg capsule 125 mg PO QID 10 Days Qty: 40 0RF ondansetron 4 mg tablet,disintegrating 4 mg PO Q6H PRN (Reason: nausea and vomiting) Qty: 10 0RF No Action cefuroxime axetil 250 mg tablet 250 mg PO BID Qty: 14 0RF phenazopyridine 100 mg tablet 100 mg PO TID PRN (Reason: pain) Qty: 6 0RF Print Language: Yemeni
[2024-05-23 08:02] VITALS: BP 118/67; PULSE 90; RESP 18; TEMP 36.5; O2SAT 100; BMI 29.3
--- NOTE | 2024-05-23 08:06 | ECG_ITS ---
Test Reason : NAUSEA Blood Pressure : */* mmHG Vent. Rate : 94 BPM Atrial Rate : 94 BPM P-R Int : 112 ms QRS Dur : 82 ms QT Int : 374 ms P-R-T Axes : 32 60 40 degrees QTcB Int : 467 ms Normal sinus rhythm Normal ECG No previous ECGs available Referred By: Beatrice Rider Electronically Signed By: Lake Schreiber
[2024-05-23] MEDS: ondansetron HCL 4 MG/2 ML VIAL IVPUSH ×2 (08:23→13:51)
[2024-05-23] MEDS: Lactated Ringers 1,000 ML 999 ML IV (08:23)
--- NOTE | 2024-05-23 08:47 | MHC.EDTECH ---
Patient informed she needs a urine and stool sample. patient agreed to notify PCT director of business systems when she needs to go so we can obtain the sample. Call mccollum placed within reach.
[2024-05-23 08:53] LABS: Basophils Percent Auto 0.3 % (0-2); Eosinophils Absolute Auto 0.1 X10*3/uL (0.0-0.4); Eosinophils Percent Auto 0.6 % (0-4); Hematocrit 46.3 % (37.0-47.0); Hemoglobin 15.6 g/dl (12.0-16.0); Imm Gran Abs Auto 0.06 X10*3/uL (0.00-0.03); Imm Gran Pct Auto 0.5 % (0.0-0.4); Lymphocytes Absolute Auto 0.1 X10*3/uL (1.2-4.9); Lymphocytes Percent Auto 0.8 % (20-40); MANUAL DIFF FLAG SCAN; Mean Corpuscular HGB Conc 33.7 g/dl (31.0-35.0); Mean Corpuscular Hemoglobin 32.6 pg (27.0-33.0); Mean Corpuscular Volume 96.9 fL (80.0-98.0); Mean Platelet Volume 11.1 fL (9.4-12.3); Monocytes Absolute Auto 0.4 X10*3/uL (0.1-1.2); Monocytes Percent Auto 3.6 % (2-11); Neutrophils Absolute Auto 11.1 x10*3/uL (2.0-8.3); Neutrophils Percent Auto 94.2 % (45-73); Platelet Count 195 X10*3/uL (160-400); Red Blood Count 4.78 X10*6/uL (4.20-5.50); SCAN SMEAR FLAG 1; White Blood Count 11.8 X10*3/uL (4.8-10.8)
[2024-05-23] MEDS: Loperamide HCl 2 MG CAPSULE 4 MG PO (09:04)
[2024-05-23 09:07] LABS: Alanine Aminotransferase 48 U/L (0-31); Albumin Level 3.8 g/dL (3.5-5.0); Alkaline Phosphatase 68 U/L (39-117); Anion Gap 14 (12-20); Aspartate Amino Transferase 44 U/L (5-31); Bilirubin Direct 0.6 mg/dL (0.0-0.5); Bilirubin Total 1.6 mg/dL (0.0-1.0); Blood Urea Nitrogen 18 mg/dL (9-16); Carbon Dioxide 20 mmol/L (22-29); Chloride 114 mmol/L (96-108); Creatinine Clr Calc Pharmacy 105.8; Estimated Glomerular Filt Rate > 60; Glucose Random 129 mg/dL (60-115); Lipase 34 U/L (8-78); Magnesium 1.2 mg/dL (1.6-2.6); Potassium 4.6 mmol/L (3.3-5.1); Sodium 143 mmol/L (135-145); Total Protein 7.1 g/dL (6.5-8.0)
[2024-05-23 09:10] LABS: Influenza A PCR NEGATIVE (Negative); Influenza B PCR NEGATIVE (Negative); Resp Syncy Virus RNA Qual PCR NEGATIVE (Negative); SARS COV2 PCR INHOUSE NEGATIVE (Negative)
[2024-05-23 09:11] LABS: Troponin-I High Sensitivity < 2.7 ng/L (<3.5-17.0)
[2024-05-23 09:15] LABS: Appearance Urine Clear; Color Urine Dark Yellow; Glucose Urine UA Negative (Negative); PH 5.5 (5.0-9.0)
[2024-05-23 09:16] LABS: SLIDE REVIEW VERIFIED
[2024-05-23 09:16] LABS: Leukocyte Esterase Urine Small (1+) (Negative); Nitrite Urine Negative (Negative); Specific Gravity - Urine > 1.030 (1.005-1.025); UMIC TRIGGER UACC YES; Urine Blood Negative (Negative); Urine Ketones Trace mg/dL (Negative); Urine Protein 30 (1+) mg/dL (Neg-Trace)
[2024-05-23 09:18] LABS: Bacteria Urine Trace (None Seen); Hyaline Casts Urine 0-2 /LPF (0-2); RBC Urine 0-2 /HPF (0-2); UACC Culture Trigger YES
[2024-05-23] MEDS: diphenhydrAMINE HCL 50 MG/ML VIAL 25 MG IVPUSH (09:48)
[2024-05-23] MEDS: Acetaminophen 1,000 MG/100 ML PIGGYBACK 400 MG IV (09:48)
[2024-05-23] MEDS: Metoclopramide HCl 10 MG/2 ML VIAL IVPUSH (09:48)
--- NOTE | 2024-05-23 10:01 | PC.NURSE ---
ambulates to the bathroom independently with steady gait. endorses headache, continues to have nausea and diarrhea. small amount of stool obtained. states she has not vomited since being here. IV fluids have infused, medicated per the MAR. call mccollum within reach
[2024-05-23] MEDS: Magnesium Sulfate/H2O 2 GM/50 ML PIGGYBACK IV (10:21)
[2024-05-23 10:22] VITALS: BP 141/82; PULSE 103; RESP 18; TEMP 37.3; O2SAT 94
[2024-05-23] MEDS: Loperamide HCl 2 MG CAPSULE PO (11:28)
--- NOTE | 2024-05-23 11:43 | PC.NURSE ---
continues to have diarrhea with episodes of incontinence. provided with pads and mesh underwear. patient states she continues to not feel well.
[2024-05-23 12:09] LABS: CDIFF Internal ctrl Dots and bkg OK (V); CDiff Gene PCR POSITIVE (Negative); CDiff Toxin Negative (Negative)
[2024-05-23 12:52] LABS: Troponin-I High Sensitivity < 2.7 ng/L (<3.5-17.0)
[2024-05-23 13:50] VITALS: BP 142/72; PULSE 108; RESP 18; TEMP 37.1; O2SAT 97
[2024-05-24 10:17] LABS: Adenovirus F 40/41 Not Detected (Not Detect.); Astrovirus Not Detected (Not Detect.); Campylobacter Not Detected (Not Detect.); Cryptosporidium Not Detected (Not Detect.); Cyclospora cayetanensis Not Detected (Not Detect.); E. coli EAEC Not Detected (Not Detect.); E. coli EPEC Not Detected (Not Detect.); E. coli ETEC Not Detected (Not Detect.); E. coli STEC Not Detected (Not Detect.); Entamoeba histolytica Not Detected (Not Detect.); Giardia lamblia Not Detected (Not Detect.); Plesiomonas shigelloides Not Detected (Not Detect.); Rotavirus A Not Detected (Not Detect.); Salmonella Not Detected (Not Detect.); Sapovirus Not Detected (Not Detect.); Shigella sp./EIEC Not Detected (Not Detect.); Vibrio Not Detected (Not Detect.); Vibrio Cholerae Not Detected (Not Detect.); Yersinia enterocolitica Not Detected (Not Detect.)
[2024-05-26 09:03] LABS: Norovirus Stool PCR DETECTED
== END 2024-05-23 14:00 | disposition home or self-care (01) ==
PROVIDERS: Physician Assistant Medical; Emergency Provider Emergency Medicine; PCP Internal Medicine
DX: K52.9 Noninfective gastroenteritis and colitis, unspecified (principal); R11.2 Nausea with vomiting, unspecified; Z03.818 Encounter for observation for suspected exposure to other biological agents ruled out; Z79.899 Other long term (current) drug therapy
CPT/HCPCS: 0241U; 36415; 80048; 80076; 81001; 83690; 83735; 84484; 85025; 87086; 87324; 87493; 87507; 93005; 96361; 96365; 96366; 96367; 96375; 96376; 99285; J0131; J1200; J2405; J2765; J3475; J7120

== ENCOUNTER → 2024-05-23 08:06 | Outpatient (BNV) | payer OTHER, SELFPAY | PROVIDERS: Emergency Provider Emergency Medicine; PCP Internal Medicine; Visit Provider Internal Medicine Cardiovascular Disease | DX: R11.0 Nausea (principal) | CPT/HCPCS: 93010 ==